=== PATIENT | female | born 1980 | race Two or more races ===

== ENCOUNTER 2020-11-05 10:28 | Outpatient (REF) | payer OTHER, MEDICAID, SELFPAY ==
--- NOTE | 2020-11-05 | PFT_ITS ---
FLOWS: FEV1 81% of predicted at 2.11 L. FVC 72% of predicted at 2.29 L. FEV1 to FVC ratio of 0.92. No bronchodilator response. LUNG VOLUMES: Total lung capacity 65% of predicted at 2.89 L. Residual volume 39% of predicted at 0.56 L. Slow vital capacity 76% of predicted at 2.33 L. Expiratory reserve volume 61% of predicted at 0.62 L. Diffusion capacity is normal. IMPRESSION: [id number] restrictive ventilatory defect. No bronchodilator response. Decreased expiratory reserve volume suggests extrathoracic restriction likely secondary to abdominal obesity. MD MARCIN López/MODL / [id number]
== END 2020-11-05 10:29 | disposition home or self-care (01) ==
LOC: HO.RESP 10:28
PROVIDERS: Visit Provider Internal Medicine
DX: R06.02 Shortness of breath (principal)
CPT/HCPCS: 94060; 94727; 94729

== ENCOUNTER 2020-11-16 10:20 | Outpatient (REF) | payer OTHER, MEDICAID, SELFPAY ==
[2020-11-17 08:45] LABS: BV Int Neg Control Negative (Negative); BV Int Pos Control Positive (Positive)
[2020-11-17 18:57] LABS: C. trachomatis RNA TMA NOT DETECTED (NOT DETECTED); N. gonorrhoeae RNA TMA NOT DETECTED (NOT DETECTED)
== END 2020-11-16 10:21 | disposition home or self-care (01) ==
LOC: HO.LAB 10:20
PROVIDERS: PCP Internal Medicine; Visit Provider Advanced Practice Midwife
DX: R10.2 Pelvic and perineal pain (principal)
CPT/HCPCS: 36415; 87480; 87491; 87510; 87591; 87660

== ENCOUNTER 2020-11-30 11:06 | Outpatient (REF) | payer OTHER, MEDICAID, SELFPAY ==
--- NOTE | ~2020-11-30 | US_ITS ---
EXAMINATION: US PELVIS COMPLETE US PELVIS ENDOVAGINAL CLINICAL INFORMATION: Pelvic and perineal pain COMPARISON: None. TECHNIQUE: Transabdominal and transvaginal images of the pelvis were obtained. FINDINGS: UTERUS: Anteverted, anteflexed. Normal size and contour, measuring 8.7 x 6.0 x 7.6 cm (cervix to fundus x AP x transverse). Uniform, homogeneous endometrium measures 0.9 cm in width. RIGHT OVARY: Normal size and echogenicity measuring 1.9 x 1.7 x 2.2 cm. 4 cc volume. LEFT OVARY: Left ovary not seen. No adnexal mass. FREE FLUID: No pelvic free fluid. US/US pelvic complete IMPRESSION: Normal pelvic ultrasound.
--- NOTE | ~2020-11-30 | US_ITS ---
EXAMINATION: US PELVIS COMPLETE US PELVIS ENDOVAGINAL CLINICAL INFORMATION: Pelvic and perineal pain COMPARISON: None. TECHNIQUE: Transabdominal and transvaginal images of the pelvis were obtained. FINDINGS: UTERUS: Anteverted, anteflexed. Normal size and contour, measuring 8.7 x 6.0 x 7.6 cm (cervix to fundus x AP x transverse). Uniform, homogeneous endometrium measures 0.9 cm in width. RIGHT OVARY: Normal size and echogenicity measuring 1.9 x 1.7 x 2.2 cm. 4 cc volume. LEFT OVARY: Left ovary not seen. No adnexal mass. FREE FLUID: No pelvic free fluid. US/US transvaginal IMPRESSION: Normal pelvic ultrasound.
== END 2020-11-30 11:07 | disposition home or self-care (01) ==
LOC: HO.US 11:06
PROVIDERS: PCP Internal Medicine; Visit Provider Advanced Practice Midwife
DX: R10.2 Pelvic and perineal pain (principal)
CPT/HCPCS: 76830; 76856

== ENCOUNTER 2020-12-14 08:29 | Outpatient (REF) | payer OTHER, MEDICAID, SELFPAY ==
[2020-12-16 18:11] LABS: HPV mRNA E6/E7 rflx Not Detected (Not Detected)
== END 2020-12-14 08:30 | disposition home or self-care (01) ==
LOC: HO.LAB 08:29
PROVIDERS: PCP Internal Medicine; Visit Provider Advanced Practice Midwife
DX: Z01.419 Encounter for gynecological examination (general) (routine) without abnormal findings (principal); Z11.51 Encounter for screening for human papillomavirus (HPV); R10.2 Pelvic and perineal pain; Z71.2 Person consulting for explanation of examination or test findings
CPT/HCPCS: 36415; 87624; 88142

== ENCOUNTER 2020-12-17 13:34 | Outpatient (REF) | payer OTHER, MEDICAID, SELFPAY ==
--- NOTE | ~2020-12-17 | MM_ITS ---
EXAMINATION: MM DIAGNOSTIC DIGITAL BREAST TOMOSYNTHESIS, BILATERAL TARGETED LEFT BREAST ULTRASOUND CLINICAL INFORMATION: Left breast pain. Status post bilateral breast reduction surgery 2016. The lifetime risk of breast cancer based on the Tyrer-Cuzick Model is 13.0%. COMPARISON: Mammography: None. TECHNIQUE: Digital breast tomosynthesis is performed in both the craniocaudal and mediolateral oblique views along with computer-aided detection (CAD). Synthesized 2D images are generated from the tomosynthesis. Additional spot magnification views of the right breast in 90 degree mediolateral and craniocaudal projections performed. Targeted left breast ultrasound. FINDINGS: There are scattered areas of fibroglandular density (ACR BI-RADS breast composition Category b). Within the central aspects of both breasts there is dystrophic calcifications from previous surgery. There are also areas of architectural distortion related to surgery bilaterally. Along the region of scar about the superior lateral aspect of the right breast there are a few calcifications without linear or branching forms and for which six-month follow-up magnification views are recommended. Targeted ultrasound evaluation in region of patient's pain at the 1 to 4 o'clock position did not demonstrate any abnormal cystic or solid mass. No region of abnormal distal sound shadowing appreciated. Results are provided to the patient at time of visit by the technologist. MM/MM tomosynthesis diagnostic BI IMPRESSION: Bilateral postsurgical change. Grouping of probably postsurgical dystrophic calcifications upper outer aspect of the right breast approximately 4 cm from the nipple for which six-month follow-up magnification views are recommended. No suspicious abnormality of the left breast in region of pain. ASSESSMENT: BI-RADS 3: Probably Benign. RECOMMENDATION: Diagnostic mammography in 6 months. This patient's information was entered into a reminder system with a target due date for their next mammogram.
--- NOTE | ~2020-12-17 | US_ITS ---
EXAMINATION: US DIAGNOSTIC ULTRASOUND BREAST, LEFT CLINICAL INFORMATION: Mastodynia. COMPARISON: Mammography of same day. TECHNIQUE: Ultrasound of the breast is performed with real-time low scale imaging and color Doppler. FINDINGS: There is no focal suspicious finding. There is no solid mass, architectural abnormality, duct ectasia, or edema in the soft tissue planes. Results are discussed with the patient at time of visit. US/US breast LT limited IMPRESSION: No mammographic abnormality of the left breast in region of pain. Due to mammography findings of calcifications in the right breast 6 month follow-up diagnostic right breast mammogram consisting of magnification views is recommended. ASSESSMENT: BI-RADS 3: Probably Benign RECOMMENDATION: Diagnostic mammography in 6 months. This patient's information was entered into a reminder system with a target due date for their next mammogram.
== END 2020-12-17 13:35 | disposition home or self-care (01) ==
LOC: HO.MAMMO 13:34
PROVIDERS: PCP Internal Medicine; Visit Provider Internal Medicine
DX: N64.4 Mastodynia (principal)
CPT/HCPCS: 76642; 77062; 77066

== ENCOUNTER 2021-02-13 21:38 | Observation (INO) | payer OTHER, MEDICAID, SELFPAY ==
--- NOTE | ~2021-02-13 | MR_ITS ---
EXAMINATION: BRAIN MRI WITHOUT CONTRAST CLINICAL INFORMATION: Transient ischemic attack COMPARISON: CT scan of the head 02/13/2021. TECHNIQUE: Multiplanar MR imaging of the brain was performed without contrast. FINDINGS: There are a few scattered nonspecific foci of T2 FLAIR signal hyperintensity within the supratentorial white matter. No acute territorial infarct. No pathological magnetic susceptibility artifact. Intracranial vascular flow voids are maintained. There is no intracranial mass effect or midline shift. No abnormal extra-axial collection. Lateral and third ventricles are normal. No hydrocephalus. Midline structures including the cervicomedullary junction are normal. No acute bone marrow signal changes. There is no mastoid or middle ear effusion. Mild to moderate paranasal sinus disease primarily affecting the ethmoid air cells. Globes and orbits are symmetric. MR/MR head/brain wo con IMPRESSION: Unremarkable examination in that there is no evidence of acute territorial infarct or hemorrhage.
--- NOTE | ~2021-02-13 | CT_ITS ---
EXAMINATION: CT HEAD WITHOUT CONTRAST CLINICAL INFORMATION: Right-sided facial numbness and asymmetry. COMPARISON: None TECHNIQUE: Contiguous axial imaging was performed from the skull base to vertex without intravenous administration of contrast. This CT examination was performed using dose optimization techniques as appropriate, variously including the following: *Automated exposure control *Adjustment of mA and/or kV according to patient size (this includes techniques or standardized protocols for targeted exams where dose is matched to indication/reason for exam; i.e. extremities or head) *Use of iterative reconstruction technique DLP: 743 mGy-cm FINDINGS: There is no evidence of acute intracranial hemorrhage or territorial infarction. No abnormal mass effect or midline shift is seen. Reinoso to white matter differentiation is well preserved. No extra-axial fluid collections are identified. The ventricles are normal in size. There is no abnormal attenuation within the brain parenchyma. The osseous structures and soft tissues are normal. The mastoid air cells and visualized portions of the paranasal sinuses are well aerated. CT/CT head/brain wo con IMPRESSION: No acute intracranial pathology.
[2021-02-13 21:48] VITALS: BP 147/90; PULSE 69; RESP 18; TEMP 36.7; O2SAT 99; BMI 33.7
[2021-02-13 22:00] VITALS: RESP 18
--- NOTE | 2021-02-13 22:17 | ECG_ITS ---
Test Reason : FACIAL NUMBNESS Blood Pressure : / mmHG Vent. Rate : 072 BPM Atrial Rate : 072 BPM P-R Int : 132 ms QRS Dur : 080 ms QT Int : 374 ms P-R-T Axes : 049 058 038 degrees QTc Int : 409 ms Artifact in tracing Normal sinus rhythm Normal ECG No previous ECGs available Referred By: Ev Lobato Electronically Signed By:HUNTER MONK
--- NOTE | 2021-02-13 22:22 | ED.GENADULT ---
HPI - General Adult General Chief complaint: General Medical Stated complaint: Facial numbess Time Seen by Provider: 02/13/21 22:04 Source: patient Mode of arrival: ambulatory History of Present Illness HPI narrative: 40-year-old female with a past medical history of hypothyroidism presenting to the ED complaining of right-sided facial numbness and reported asymmetry since 6:00 p.m. Admits to mild associated headache and acute on chronic lower extremity cramping. Denies vision changes, lightheadedness/dizziness, nausea/vomiting, CP/SOB, abdominal pain, weakness, fever, chills, head trauma. Does not take anticoagulation. Onset (ago): hour(s) Related Data Home Medications Medication Instructions Recorded Confirmed chlorhexidine gluconate 0.12 % 13 ml PO BID 11/16/20 02/13/21 mouthwash diclofenac potassium 50 mg tablet 50 mg PO BID 11/16/20 02/13/21 fluticasone propionate 50 1 - 2 spray INTRANASAL DAILY PRN 11/16/20 02/13/21 mcg/actuation nasal spray,suspension levothyroxine 50 mcg capsule 50 mcg PO DAILY 11/16/20 02/13/21 montelukast 10 mg tablet 10 mg PO BEDTIME 11/16/20 02/13/21 Allergies Allergy/AdvReac Type Severity Reaction Status Date / Time No Known Allergies Allergy Verified 12/14/20 09:21 Review of Systems Review of Systems: Constitutional: No Fever, No Chills, No Night Sweats, No Fatigue, No Malaise ENT/Mouth: No Ear Pain, No Nasal Congestion, No Hoarseness, No sore throat, No Rhinorrhea Eyes: No Eye Pain, No Swelling, No Redness, No Foreign Body, No Discharge, No Vision Changes Cardiovascular: No Chest Pain, No SOB, No Orthopnea, No Edema, No Palpitations Respiratory: No Cough, No Sputum, No Wheezing, No Dyspnea Gastrointestinal: No Nausea, No Vomiting, No Diarrhea, No Constipation, No Abdominal pain Genitourinary: No Dysuria, No Urinary Frequency, No Hematuria Musculoskeletal: No joint pain, No Myalgias, No Joint Swelling Skin: No Skin Lesions, No rash Neuro: No Weakness, + Numbness, No Paresthesias, No Dizziness, + Headache Yes all other systems are reviewed and are negative Neurologic: Denies Abnormal speech present [facility] Past Medical History Attestation statement: The following information was validated with the patient. Medical History (Updated 02/14/21 @ 00:03 by SAGAR Mendoza) Hypothyroidism No known health problems Ovarian cyst Surgical History H/O abdominoplasty History of bilateral breast reduction surgery Family History Family History Father Hypertension Mother CVD (cardiovascular disease) Sister Asthma Thyroid disease Maternal Uncle Diabetes Social History Social History Alcohol intake: never Smoking Status: Never smoker Smoked in Last 30 Days: No Use of substances other than those prescribed or required for medical reasons: No Advance Directives: No Advance Directives Information Provided: No Patient : No Physical Exam Vital Signs: Vital Signs: Last Vital Signs Temp 98.0 F 02/13/21 21:48 Pulse 69 02/13/21 21:48 Resp 18 02/13/21 22:00 BP 147/90 H 02/13/21 21:48 Pulse Ox 99 02/13/21 21:48 Body Mass Index 33.7 Const: General: cooperative and healthy appearing Orientation/consciousness: patient oriented x3 Limitations: no limitations HENMT: Head: Yes normal to inspection Ears: hearing grossly normal bilaterally General nose exam: Normal external nose present Face and sinus: Yes normal facial exam Eyes: General: appearance normal, both eyes and all related structures EOM: EOMs intact bilaterally Neck: Neck: Yes normal visual inspection and Yes no meningeal signs Resp: Effort & Inspection: normal respiratory effort Auscultation: clear to auscultation bilaterally, no rales, no rhonchi and no wheezes Cardio: Rate: regular rate Heart sounds: S1 normal heart sound present and S2 normal heart sound present GI: Inspection: Yes normal to inspection Palpation (GI): Soft to palpation, nontender, no guarding and not rigid Skin: Rashes: no rashes Wounds: no wounds Neuro: Other: +reported decreased sensation to right face General: patient oriented x3, gait normal, tone normal, moves all extremities, no meningeal signs, no focal motor deficits and CN's II-XI intact bilaterally Cranial nerves: Yes CN's II-XII intact bilaterally, Yes Normal facial strength present and Yes Midline tongue present Cognition (Neuro): normal cognition Speech: No Abnormal speech present Gait exam (Neuro): Normal gait present Motor exam (neuro): 5/5 motor strength present throughout, Pronator motor function not present, no tremor noted and no asterixis Coordination: [id number] test normal and Romberg test negative Extrem: General: Yes normal to inspection, Yes no pedal edema and Yes no calf tenderness NIH Stroke Scale Internal: Initial- Upon Arrival Level of Consciousness: Alert Level of Consciousness Questions: Answers both questions correctly Level of Consciousness Commands: Performs both tasks correctly Best Gaze: Normal Visual: No visual loss Facial Palsy: Normal Motor Arm (Right): No drift Motor Arm (Left): No drift Motor Leg (Right): No drift Motor Leg (Left): No drift Limb Ataxia: Absent Sensory: Normal Best Language: No aphasia Dysarthia: Normal Extinction and Inattention: No abnormality Score: 0 Course Course Course Narrative: -labs unremarkable, COVID-[address] head/brain wo con IMPRESSION: No acute intracranial pathology. >> Plan to admit for further management Medical Decision Making [facility] Narrative Medical decision making narrative: 40-year-old female with a past medical history of hypothyroidism presenting to the ED complaining of right-sided facial numbness and reported asymmetry since 6:00 p.m. Admits to mild associated headache and acute on chronic lower extremity cramping. On exam VSS, NAD, well appearing, no focal neuro deficits appreciated, NIHSS=0, patient is out of the window for tPA, stroke scale non-disabling patient not candidate for tPA. Concern for TIA/CVA vs facial paralysis. Exam not c/w Moore's Palsy. Plan: EKG, labs, head CT, [place], anticipated admission Lab Data Result diagrams: 02/13/21 22:30 02/13/21 22:30 Labs: Lab Results 02/13/21 02/13/21 02/13/21 Range/Units 22:30 22:30 22:30 WBC 11.0 H (4.8-10.8) X10*3/uL RBC 4.29 (4.20-5.50) X10*6/uL Hgb 12.3 (12.0-16.0) g/dl Hct 38.3 (37-47) % MCV 89.3 (80-98) fL MCH 28.7 (27.0-33.0) pg MCHC 32.1 (31.0-35.0) g/dl RDW 12.1 (11.0-16.0) % Plt Count 253 (160-400) X10*3/uL MPV 10.7 (9.4-12.3) fL Immature Gran % (Auto) 0.2 (0.0-0.4) % Neut % (Auto) 51.9 (45-73) % Lymph % (Auto) 40.4 H (20-40) % Lee % (Auto) 5.9 (2-11) % Eos % (Auto) 1.1 (0-4) % Baso % (Auto) 0.5 (0-2) % Lymph # (Auto) 4.5 (1.2-4.9) X10*3/uL Lee # (Auto) 0.7 (0.1-1.2) X10*3/uL Eos # (Auto) 0.1 (0.0-0.4) X10*3/uL Baso # (Auto) 0.1 (0.0-0.2) X10*3/uL Abs Immat Gran (auto) 0.02 (0.00-0.03) X10*3/uL Absolute Neuts (auto) 5.7 (2.0-8.3) X10*3/uL Absolute Nucleated RBC 0.000 (0.0-0.012) X10*3/uL Nucleated RBC % (auto) 0.0 (0.0-0.2) /100WBC PT (10.8-13.0) SEC INR (0.9-1.1) APTT (24.1-38.0) SEC Sodium 138 (135-145) mmol/L Potassium 4.0 (3.3-5.1) mmol/L Chloride 104 (96-108) mmol/L Carbon Dioxide 23 (22-29) mmol/L Anion Gap 15 (12-20) BUN 12 (9-16) mg/dL Creatinine 0.82 (0.5-1.4) mg/dL Estim Creat Clear Calc 83.6 Estimated GFR > 60 Random Glucose 84 (60-115) mg/dL Calcium 10.1 (8.4-10.2) mg/dL Magnesium 2.1 (1.6-2.6) mg/dL Total Bilirubin 0.6 (0.0-1.0) mg/dL Direct Bilirubin 0.2 (0.0-0.5) mg/dL AST 20 (5-31) U/L ALT 20 (0-31) U/L Alkaline Phosphatase 52 (39-117) U/L Troponin I High Sens < 3.5 (<3.5-17.0) ng/L Total Protein 7.9 (6.5-8.0) g/dL Albumin 4.8 (3.5-5.0) g/dL COVID-19 (DAVID) (Negative) COVID-19 Clin Com 02/13/21 02/13/21 Range/Units 22:30 22:37 WBC (4.8-10.8) X10*3/uL RBC (4.20-5.50) X10*6/uL Hgb (12.0-16.0) g/dl Hct (37-47) % MCV (80-98) fL MCH (27.0-33.0) pg MCHC (31.0-35.0) g/dl RDW (11.0-16.0) % Plt Count (160-400) X10*3/uL MPV (9.4-12.3) fL Immature Gran % (Auto) (0.0-0.4) % Neut % (Auto) (45-73) % Lymph % (Auto) (20-40) % Lee % (Auto) (2-11) % Eos % (Auto) (0-4) % Baso % (Auto) (0-2) % Lymph # (Auto) (1.2-4.9) X10*3/uL Lee # (Auto) (0.1-1.2) X10*3/uL Eos # (Auto) (0.0-0.4) X10*3/uL Baso # (Auto) (0.0-0.2) X10*3/uL Abs Immat Gran (auto) (0.00-0.03) X10*3/uL Absolute Neuts (auto) (2.0-8.3) X10*3/uL Absolute Nucleated RBC (0.0-0.012) X10*3/uL Nucleated RBC % (auto) (0.0-0.2) /100WBC PT 12.2 (10.8-13.0) SEC INR 1.0 (0.9-1.1) APTT 35.7 (24.1-38.0) SEC Sodium (135-145) mmol/L Potassium (3.3-5.1) mmol/L Chloride (96-108) mmol/L Carbon Dioxide (22-29) mmol/L Anion Gap (12-20) BUN (9-16) mg/dL Creatinine (0.5-1.4) mg/dL Estim Creat Clear Calc Estimated GFR Random Glucose (60-115) mg/dL Calcium (8.4-10.2) mg/dL Magnesium (1.6-2.6) mg/dL Total Bilirubin (0.0-1.0) mg/dL Direct Bilirubin (0.0-0.5) mg/dL AST (5-31) U/L ALT (0-31) U/L Alkaline Phosphatase (39-117) U/L Troponin I High Sens (<3.5-17.0) ng/L Total Protein (6.5-8.0) g/dL Albumin (3.5-5.0) g/dL COVID-19 (DAVID) Negative (Negative) COVID-19 Clin Com See Note ECG Data Attestation: I personally reviewed and interpreted this ECG as follows: Interpretation: EKG normal sinus rhythm with rate of 72. QTC 409. No STEMI/nonischemic. Artifact present Discharge Plan Discharge Clinical Impression: Right facial numbness Patient Disposition: Admitted As Inpatient Prescriptions: No Action montelukast 10 mg tablet 10 mg PO BEDTIME RF: 0 fluticasone propionate 50 mcg/actuation spray,suspension 1 - 2 spray intranasal DAILY PRN (Reason: Runny Nose) RF: 0 diclofenac potassium 50 mg tablet 50 mg PO BID RF: 0 chlorhexidine gluconate 0.12 % mouthwash 13 ml PO BID RF: 0 levothyroxine 50 mcg capsule 50 mcg PO DAILY RF: 0
[2021-02-13 22:36] LABS: MANUAL DIFF FLAG NO
[2021-02-13 22:40] LABS: Basophils Absolute Auto 0.1 X10*3/uL (0.0-0.2); Basophils Percent Auto 0.5 % (0-2); Eosinophils Absolute Auto 0.1 X10*3/uL (0.0-0.4); Eosinophils Percent Auto 1.1 % (0-4); Hematocrit 38.3 % (37-47); Hemoglobin 12.3 g/dl (12.0-16.0); Imm Gran Abs Auto 0.02 X10*3/uL (0.00-0.03); Imm Gran Pct Auto 0.2 % (0.0-0.4); Lymphocytes Absolute Auto 4.5 X10*3/uL (1.2-4.9); Lymphocytes Percent Auto 40.4 % (20-40); Mean Corpuscular HGB Conc 32.1 g/dl (31.0-35.0); Mean Corpuscular Hemoglobin 28.7 pg (27.0-33.0); Mean Corpuscular Volume 89.3 fL (80-98); Mean Platelet Volume 10.7 fL (9.4-12.3); Monocytes Absolute Auto 0.7 X10*3/uL (0.1-1.2); Monocytes Percent Auto 5.9 % (2-11); Neutrophils Absolute Auto 5.7 X10*3/uL (2.0-8.3); Neutrophils Percent Auto 51.9 % (45-73); Platelet Count 253 X10*3/uL (160-400); Red Blood Count 4.29 X10*6/uL (4.20-5.50); Red Cell Distribution Width 12.1 % (11.0-16.0)
[2021-02-13 22:45] LABS: Prothrombin Time 12.2 SEC (10.8-13.0)
[2021-02-13 22:48] LABS: Partial Thromboplastin Time 35.7 SEC (24.1-38.0)
[2021-02-13 23:11] LABS: COVID-19 Test Negative (Negative); IDNOW Serial# 9DD0AD1C
[2021-02-13 23:15] LABS: Alanine Aminotransferase 20 U/L (0-31); Albumin Level 4.8 g/dL (3.5-5.0); Alkaline Phosphatase 52 U/L (39-117); Anion Gap 15 (12-20); Aspartate Amino Transferase 20 U/L (5-31); Bilirubin Direct 0.2 mg/dL (0.0-0.5); Bilirubin Total 0.6 mg/dL (0.0-1.0); Blood Urea Nitrogen 12 mg/dL (9-16); Calcium 10.1 mg/dL (8.4-10.2); Carbon Dioxide 23 mmol/L (22-29); Chloride 104 mmol/L (96-108); Creatinine Clr Calc Pharmacy 83.6; Estimated Glomerular Filt Rate > 60; Glucose Random 84 mg/dL (60-115); Magnesium 2.1 mg/dL (1.6-2.6); Sodium 138 mmol/L (135-145); Total Protein 7.9 g/dL (6.5-8.0)
[2021-02-13 23:22] LABS: Troponin-I High Sensitivity < 3.5 ng/L (<3.5-17.0)
[2021-02-14 00:27] LABS: TSH reflex Free T4 3.88 uIU/mL (0.32-4.0)
--- NOTE | 2021-02-14 00:53 | PM.IMHP ---
History of Present Illness Date of Service: 02/14/21 Chief Complaint: Numbness, tingling, as well as drooping of the face This is a 40-year-old female with history of hypothyroidism, presents to the hospital with complaints of sudden-onset numbness, tingling, as well as drooping of her right face. Patient reports that she had no slurred speech, no numbness tingling or weakness in her upper or lower extremities. She denies any previous similar episode, on my interview continues to feel it although improved, denies any previous similar episode. She is also complaining of blurry vision of the right eye that also started the same time. Has no headache, no dizziness, no chest pain, nausea or vomiting, no diarrhea constipation, no urinary symptoms, and no lower extremity edema. On arrival to the ED hemodynamically stable with no significant abnormal vitals Labs are significant for WBC count of 11.0 otherwise unremarkable. Lyme screen pending, COVID-19 negative, Head CT shows no intracranial pathology Review of Systems Review of Systems: Yes all other systems are reviewed and are negative [facility] Medical History Hypothyroidism No known health problems Ovarian cyst Family History Father Hypertension Mother CVD (cardiovascular disease) Sister Asthma Thyroid disease Maternal Uncle Diabetes Surgical History H/O abdominoplasty History of bilateral breast reduction surgery Social History Alcohol intake: never Smoking Status: Never smoker Smoked in Last 30 Days: No Use of substances other than those prescribed or required for medical reasons: No Advance Directives: No Advance Directives Information Provided: No Patient : No Meds Allergies Allergy/AdvReac Type Severity Reaction Status Date / Time No Known Allergies Allergy Verified 12/14/20 09:21 Active Medications: Current Medications Generic Name Dose Route Start Last Admin Trade Name Freq PRN Reason Stop Dose Admin Pharmacy Consult 1 each 02/13/21 22:26 Consult Rx Perform Med Rec MISCELLANE ONCE PRN Consult order Home Medications Medication Instructions Recorded Confirmed Last Taken Type chlorhexidine gluconate 0.12 % 13 ml PO BID 11/16/20 02/13/21 Unknown History mouthwash diclofenac potassium 50 mg tablet 50 mg PO BID 11/16/20 02/13/21 Unknown History fluticasone propionate 50 1 - 2 spray INTRANASAL DAILY PRN 11/16/20 02/13/21 Unknown History mcg/actuation nasal spray,suspension levothyroxine 50 mcg capsule 50 mcg PO DAILY 11/16/20 02/13/21 Unknown History montelukast 10 mg tablet 10 mg PO BEDTIME 11/16/20 02/13/21 Unknown History Physical Exam Vital Signs and Narrative: Vital Signs: Last Vital Signs Temp 98.0 F 02/13/21 21:48 Pulse 69 02/13/21 21:48 Resp 18 02/13/21 22:00 BP 147/90 H 02/13/21 21:48 Pulse Ox 99 02/13/21 21:48 Body Mass Index 33.7 Const: General: cooperative and no acute distress Orientation/consciousness: patient oriented x3 Eyes: General: appearance normal, both eyes and all related structures Resp: Effort & Inspection: normal respiratory effort and able to speak in complete sentences Cardio: Rate: regular rate Rhythm: regular rhythm GI: Palpation (GI): Soft to palpation Auscultation: normal bowel sounds Skin: General skin exam: no rashes or lesions noted Neuro: Other: Has decreased sensation on the right face, no tongue deviation, no slurred speech, no droopiness of either side of the face, strength 5/5 in upper and lower extremities No evidence of him an apnea General: patient oriented x3 Cognition (Neuro): normal cognition Extrem: General: Yes normal to inspection and Yes no pedal edema Results Labs CBC and Chem 7: 02/13/21 22:30 02/13/21 22:30 Labs: Laboratory Results - last 24 hr 02/13/21 02/13/21 02/13/21 22:30 22:30 22:30 MCV 89.3 MCH 28.7 MCHC 32.1 RDW 12.1 Plt Count 253 MPV 10.7 Immature Gran % (Auto) 0.2 Neut % (Auto) 51.9 Lymph % (Auto) 40.4 H [place] % (Auto) 5.9 Eos % (Auto) 1.1 Baso % (Auto) 0.5 Lymph # (Auto) 4.5 [place] # (Auto) 0.7 Eos # (Auto) 0.1 Baso # (Auto) 0.1 Abs Immat Gran (auto) 0.02 Absolute Neuts (auto) 5.7 Absolute Nucleated RBC 0.000 Nucleated RBC % (auto) 0.0 PT INR APTT Anion Gap 15 Estim Creat Clear Calc 83.6 Estimated GFR > 60 Random Glucose 84 Calcium 10.1 Magnesium 2.1 Total Bilirubin 0.6 Direct Bilirubin 0.2 AST 20 ALT 20 Alkaline Phosphatase 52 Troponin I High Sens < 3.5 Total Protein 7.9 Albumin 4.8 TSH 3.88 COVID-19 (DAVID) COVID-19 Clin Com 02/13/21 02/13/21 22:30 22:37 MCV MCH MCHC RDW Plt Count MPV Immature Gran % (Auto) Neut % (Auto) Lymph % (Auto) [place] % (Auto) Eos % (Auto) Baso % (Auto) Lymph # (Auto) [place] # (Auto) Eos # (Auto) Baso # (Auto) Abs Immat Gran (auto) Absolute Neuts (auto) Absolute Nucleated RBC Nucleated RBC % (auto) PT 12.2 INR 1.0 APTT 35.7 Anion Gap Estim Creat Clear Calc Estimated GFR Random Glucose Calcium Magnesium Total Bilirubin Direct Bilirubin AST ALT Alkaline Phosphatase Troponin I High Sens Total Protein Albumin TSH COVID-19 (DAVID) Negative COVID-19 Clin Com See Note Imaging Radiologist's Impressions: Impressions Head CT 02/13/21 22:20 IMPRESSION: No acute intracranial pathology. Assessment and Plan (1) Right facial numbness: Status: Acute 40-year-old female with history of hypothyroidism presents to the hospital with complaints of facial numbness and tingling #Acute right facial numbness - TIA versus other etiologies - calcium normal, potassium normal, head CT negative, normal TSH - has no other neurological deficit - has no risk factors - will obtain MRI of the brain to rule out acute stroke versus TIA # hypothyroidism - normal TSH - continue levothyroxine DVT prophylaxis: Early ambulation
[2021-02-14 01:02] VITALS: BP 125/75; PULSE 76; RESP 14; TEMP 36.8; O2SAT 100
[2021-02-14 01:45] VITALS: BP 135/70; PULSE 73; RESP 14; TEMP 36.1; O2SAT 99; BMI 33.8
[2021-02-14 04:00] VITALS: BP 116/67; PULSE 72; RESP 14; TEMP 36.4; O2SAT 100
[2021-02-14] MEDS: Levothyroxine Sodium 50 MCG TABLET PO (06:12)
[2021-02-14 08:00] VITALS: BP 124/79; PULSE 72; RESP 20; TEMP 36.4; O2SAT 100
[2021-02-14] MEDS: Chlorhexidine Gluc Oral Rinse 15 ML MOUTHWASH 13 ML BUCCAL (09:46)
[2021-02-14] MEDS: 0.9 % Sodium Chloride Flush 3 ML SYRINGE IVFLUSH ×2 (09:47→16:22)
--- NOTE | 2021-02-14 10:05 | PM.DS ---
DS: Providers Provider Date of Service: 02/17/21 Date of admission: 02/14/21 00:52 Primary care physician: Unknown Physician Consults: 02/14/21 08:21 Consult to Neurology Routine Consulting Provider: [facility] Reason for consultation: Facial droop DS: Diagnosis Discharge Diagnosis (1) Right facial numbness: Status: Acute Problem details: 40 years old woman with new onset of right-sided facial numbness. Examination revealed mild right-sided facial flatness. This feeling lasted for couple of hours and with that she had attention type feeling in her head. She denied having previous headaches. This type of problem can occur from peripheral pathology or central. There is no acute or chronic central pathology to explain on her MRI. Mild Moore's palsy could be a possibility. Migraine would be a possibility but she denied any history of headaches in the past. My recommendation is to give her a course of prednisone with valacyclovir and discharge her with outpatient follow-up. DS: Medications Discharge Medications Home Medications: Home Medications Medication Instructions Recorded Confirmed chlorhexidine gluconate 0.12 % 13 ml PO BID 11/16/20 02/13/21 mouthwash diclofenac potassium 50 mg tablet 50 mg PO BID 11/16/20 02/13/21 fluticasone propionate 50 1 - 2 spray INTRANASAL DAILY PRN 11/16/20 02/13/21 mcg/actuation nasal spray,suspension levothyroxine 50 mcg capsule 50 mcg PO DAILY 11/16/20 02/13/21 montelukast 10 mg tablet 10 mg PO BEDTIME 11/16/20 02/13/21 DS: Summary Hospital Course Hospital Course: Patient presented with numbness, tingling in arm and reported facial droop (not appreciated on my exam) and had normal head CT-- Time Spent with Patient Time attestation: Total time spent providing and/or coordinating discharge services: Discharge coordination time: Greater than 30 minutes Physical Exam Vital Signs: Vital Signs: Last Vital Signs Temp 97.6 F 02/14/21 08:00 Pulse 72 02/14/21 08:00 Resp 20 02/14/21 08:00 BP 124/79 02/14/21 08:00 Pulse Ox 100 02/14/21 08:00 Body Mass Index 33.8 Constitutional Awake and Alert, No apparent distress Neck Supple, No lymphadenopathy Cardiovascular RRR, No M/R/G, S1 S2, No S3 S4, No pedal edema Respiratory Lungs clear, No respiratory distress Gastrointestinal Non tender, Non-distended Skin No rash Neurological Alert & oriented x3, no focal neuro exam, esssentially normal exam Psychological Appropriate affect DS: Data Data Completed and Pending Labs on day of discharge: Laboratory Results - last 24 hr 02/13/21 02/13/21 02/13/21 22:30 22:30 22:30 WBC 11.0 H RBC 4.29 Hgb 12.3 Hct 38.3 MCV 89.3 MCH 28.7 MCHC 32.1 RDW 12.1 Plt Count 253 MPV 10.7 Immature Gran % (Auto) 0.2 Neut % (Auto) 51.9 Lymph % (Auto) 40.4 H [place] % (Auto) 5.9 Eos % (Auto) 1.1 Baso % (Auto) 0.5 Lymph # (Auto) 4.5 [place] # (Auto) 0.7 Eos # (Auto) 0.1 Baso # (Auto) 0.1 Abs Immat Gran (auto) 0.02 Absolute Neuts (auto) 5.7 Absolute Nucleated RBC 0.000 Nucleated RBC % (auto) 0.0 PT INR APTT Sodium 138 Potassium 4.0 Chloride 104 Carbon Dioxide 23 Anion Gap 15 BUN 12 Creatinine 0.82 Estim Creat Clear Calc 83.6 Estimated GFR > 60 Random Glucose 84 Calcium 10.1 Magnesium 2.1 Total Bilirubin 0.6 Direct Bilirubin 0.2 AST 20 ALT 20 Alkaline Phosphatase 52 Troponin I High Sens < 3.5 Total Protein 7.9 Albumin 4.8 TSH 3.88 COVID-19 (DAVID) COVID-19 Clin [facility] 02/13/21 02/13/21 22:30 22:37 WBC RBC Hgb Hct MCV MCH MCHC RDW Plt Count MPV Immature Gran % (Auto) Neut % (Auto) Lymph % (Auto) [place] % (Auto) Eos % (Auto) Baso % (Auto) Lymph # (Auto) [place] # (Auto) Eos # (Auto) Baso # (Auto) Abs Immat Gran (auto) Absolute Neuts (auto) Absolute Nucleated RBC Nucleated RBC % (auto) PT 12.2 INR 1.0 APTT 35.7 Sodium Potassium Chloride Carbon Dioxide Anion Gap BUN Creatinine Estim Creat Clear Calc Estimated GFR Random Glucose Calcium Magnesium Total Bilirubin Direct Bilirubin AST ALT Alkaline Phosphatase Troponin I High Sens Total Protein Albumin TSH COVID-19 (DAVID) Negative COVID-19 Clin Com See Note Discharge Plan Discharge Anticipated Discharge Date/Time: 02/14/21 10:02 Patient Disposition: Home, Self-Care Discharge Diagnosis: Facial numbness Referrals: Physician,Unknown [Primary Care Provider] - 1 Week Discharge Medications: New prednisone 20 mg tablet 40 mg PO DAILY Qty: 19 RF: 0 valacyclovir 500 mg tablet 500 mg PO BID Qty: 10 RF: 0 Continued montelukast 10 mg tablet 10 mg PO BEDTIME RF: 0 fluticasone propionate 50 mcg/actuation spray,suspension 1 - 2 spray intranasal DAILY PRN (Reason: Runny Nose) RF: 0 diclofenac potassium 50 mg tablet 50 mg PO BID RF: 0 chlorhexidine gluconate 0.12 % mouthwash 13 ml PO BID RF: 0 levothyroxine 50 mcg capsule 50 mcg PO DAILY RF: 0 Discharge Orders: Discharge Order (Routine); Ordered 02/14/21 Ordered By: Wili Joel Diet: advance to usual diet Activity on Discharge: As tolerated Stand Alone Forms: Patient Portal Discharge page Care Plan Goals: prevent rehospitalization Health Concerns: facial numbness, no evidence of stroke Plan of Treatment: Reassured, and to keep active and healthy life style Assessment: See above Discharge Date/Time: 02/14/21 18:30
[2021-02-14 12:00] VITALS: BP 126/58; PULSE 74; RESP 20; TEMP 36.9; O2SAT 98
[2021-02-14 15:42] VITALS: BP 130/70; PULSE 70; RESP 18; TEMP 36.7; O2SAT 99
--- NOTE | 2021-02-14 16:35 | P.CNNE_ITS ---
History of Present Illness Data of Consult Service Date: 02/14/21 Primary Care Provider: Unknown Physician 40 years old woman who came to hospital with right-sided facial numbness. This numbness started suddenly and involved the right side of cheek and jaw. There was no associated numbness and shoulder or arm or hand. There was no headache or dizziness or any other symptom. Though she denied any headache she did say that she had a tension type feeling in her head This feeling lasted for couple of hours and then she was back to baseline. Review of Systems Review of Systems: No recent cold or flu-like illness or trauma or neck pain. [facility] Past Medical History Medical History Hypothyroidism No known health problems Ovarian cyst Family History Family History Father Hypertension Mother CVD (cardiovascular disease) Sister Asthma Thyroid disease Maternal Uncle Diabetes Surgical History Surgical History H/O abdominoplasty History of bilateral breast reduction surgery Social History Social History Alcohol intake: never Smoking Status: Never smoker Smoked in Last 30 Days: No Use of substances other than those prescribed or required for medical reasons: No Advance Directives: No Advance Directives Information Provided: No Patient : No Meds Allergies Allergy/AdvReac Type Severity Reaction Status Date / Time No Known Allergies Allergy Verified 12/14/20 09:21 Active Medications: Current Medications Generic Name Dose Route Start Last Admin Trade Name Heydi PRN Reason Stop Dose Admin Acetaminophen 650 mg 02/14/21 01:02 Acetaminophen 325 Mg Tablet PO Q6H PRN Pain, Mild (Pain Scale 1-3) Chlorhexidine Gluconate 13 ml 02/14/21 09:00 02/14/21 09:46 Chlorhexidine Gluc Oral Rinse 15 Ml Mouthwash BUCCAL 13 ml BID MANOLO Administration Docusate Sodium 100 mg 02/14/21 01:02 Docusate Sodium 100 Mg Capsule PO DAILY PRN Constipation Levothyroxine Sodium 50 mcg 02/14/21 06:30 02/14/21 06:12 Levothyroxine Sodium 50 Mcg Tablet PO 50 mcg DAILY@0630 MANOLO Administration Montelukast Sodium 10 mg 02/14/21 21:00 Montelukast Sodium 10 Mg Tablet PO BEDTIME [facility] Ondansetron HCl 4 mg 02/14/21 01:02 Ondansetron Hcl 4 Mg/2 Ml Vial IVPUSH Q8H PRN Nausea and Vomiting Pharmacy Consult 1 each 02/13/21 22:26 Consult Rx Perform Med Rec MISCELLANE ONCE PRN Consult order Sodium Chloride 3 ml 02/14/21 08:00 02/14/21 16:22 0.9 % Sodium Chloride Flush 3 Ml Syringe IVFLUSH 3 ml QSHIFT [facility] Administration Home Medications Medication Instructions Recorded Confirmed Last Taken Type chlorhexidine gluconate 0.12 % 13 ml PO BID 11/16/20 02/13/21 Unknown History mouthwash diclofenac potassium 50 mg tablet 50 mg PO BID 11/16/20 02/13/21 Unknown History fluticasone propionate 50 1 - 2 spray INTRANASAL DAILY PRN 11/16/20 02/13/21 Unknown History mcg/actuation nasal spray,suspension levothyroxine 50 mcg capsule 50 mcg PO DAILY 11/16/20 02/13/21 Unknown History montelukast 10 mg tablet 10 mg PO BEDTIME 11/16/20 02/13/21 Unknown History Physical Exam Vital Signs: Vital Signs: Last Vital Signs Temp 98.0 F 02/14/21 15:42 Pulse 70 02/14/21 15:42 Resp 18 02/14/21 15:42 BP 130/70 02/14/21 15:42 Pulse Ox 99 02/14/21 15:42 Body Mass Index 33.8 She was alert and awake with normal spontaneity of speech fluency comprehension and affect. Pupils were equal and reactive to light and extraocular muscles were intact. Visual wong are full to threat. There was mild right-sided central type facial weakness. There was no focal arm or leg weakness. There was no pronator drift. Deep tendon reflexes were trace to 1+ with flexor plantars. Results Labs CBC & Chem 7: 02/13/21 22:30 02/13/21 22:30 Labs: Short CBC 02/13/21 Range/Units 22:30 WBC 11.0 H (4.8-10.8) X10*3/uL Hgb 12.3 (12.0-16.0) g/dl Hct 38.3 (37-47) % Plt Count 253 (160-400) X10*3/uL BMP 02/13/21 22:30 Sodium 138 Potassium 4.0 Chloride 104 Carbon Dioxide 23 BUN 12 Creatinine 0.82 Calcium 10.1 Liver Function 02/13/21 Range/Units 22:30 Total Bilirubin 0.6 (0.0-1.0) mg/dL Direct Bilirubin 0.2 (0.0-0.5) mg/dL AST 20 (5-31) U/L ALT 20 (0-31) U/L Alkaline Phosphatase 52 (39-117) U/L Albumin 4.8 (3.5-5.0) g/dL Her noncontrast MRI did not reveal any significant chronic or acute abnormality. Assessment and Plan (1) Right facial numbness: Problem details: 40 years old woman with new onset of right-sided facial numbness. Examination revealed mild right-sided facial flatness. This feeling lasted for couple of hours and with that she had attention type feeling in her head. She denied having previous headaches. This type of problem can occur from peripheral pathology or central. There is no acute or chronic central pathology to explain on her MRI. Mild Moore's palsy could be a possibility. Migraine would be a possibility but she denied any history of headaches in the past. My recommendation is to give her a course of prednisone with valacyclovir and discharge her with outpatient follow-up. Status: Acute
[2021-02-14] MEDS: predniSONE 20 MG TABLET 40 MG PO (17:34)
--- NOTE | 2021-02-15 02:44 | CONS_ITS ---
DATE OF SERVICE: Ms. Boston is a 40-year-old woman who denied any previous history of headaches, came to hospital with sudden onset of right-sided facial numbness. She said that suddenly she could not feel her right side of face. There was no such feeling in arm or shoulder. There was no associated discomfort or any other symptom. This feeling lasted for couple of hours and then she was back to baseline. There was no associated confusion. MD SUBHASH Araujo/JODIE / [id number]
[2021-02-15 17:22] LABS: Lyme Abs Screen <0.90 index
== END 2021-02-14 18:30 | disposition home or self-care (01) ==
LOC: HO.ED 02-14 00:03 → HO.IMC 02-14 01:10
PROVIDERS: Physician Assistant; Admitting Provider Internal Medicine; Emergency Provider Student in an Organized Health Care Education/Training Program; Visit Provider Internal Medicine
DX: R20.2 Paresthesia of skin (principal); E03.9 Hypothyroidism, unspecified; Z20.822 Contact with and (suspected) exposure to COVID-19; Z79.899 Other long term (current) drug therapy
CPT/HCPCS: 36415; 70450; 70551; 80048; 80076; 83735; 84443; 84484; 85025; 85610; 85730; 86617; 86618; 87635; 93005; 96374; 99219; 99285

== ENCOUNTER 2021-06-10 08:44 | Outpatient (REF) | payer OTHER, MEDICAID, SELFPAY ==
--- NOTE | 2021-06-10 08:48 | EMG_ITS ---
Right median and ulnar motor and sensory study were performed. Right radial sensory study was performed and paraspinal muscles were tested with a needle. 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 MD SUBHASH Araujo/JODIE / [id number]
== END 2021-06-10 08:45 | disposition home or self-care (01) ==
LOC: HO.NEURO 08:44
PROVIDERS: Visit Provider General Practice
DX: M25.521 Pain in right elbow (principal); R29.898 Other symptoms and signs involving the musculoskeletal system
CPT/HCPCS: 95886; 95909

== ENCOUNTER 2021-07-01 08:40 | Outpatient (REF) | payer OTHER, MEDICAID, SELFPAY ==
--- NOTE | ~2021-07-01 | MM_ITS ---
EXAMINATION: MM DIAGNOSTIC DIGITAL BREAST TOMOSYNTHESIS, RIGHT CLINICAL INFORMATION: Six-month follow-up right breast calcifications. Status post bilateral breast reduction surgery. The lifetime risk of breast cancer based on the Tyrer-Cuzick Model is 6.9%. COMPARISON: Mammography: December 17, 2020 TECHNIQUE: Digital breast tomosynthesis is performed in both the craniocaudal and mediolateral oblique views along with computer-aided detection (CAD). Synthesized 2D images are generated from the tomosynthesis. Spot magnification views in craniocaudal and 90 degree mediolateral views also performed. FINDINGS: There are scattered areas of fibroglandular density (ACR BI-RADS breast composition Category b). Postsurgical change is noted within the right breast. The grouping of calcifications about the anterior upper outer aspect are stable. Six-month follow-up diagnostic right breast mammogram with screening left breast mammogram recommended. Results are provided to the patient at time of visit by the technologist. MM/MM tomosynthesis diagnostic RT IMPRESSION: There are no significant changes from prior study. Recommend spot magnification views of the right breast at time of bilateral mammogram in 6 months. ASSESSMENT: BI-RADS 3: Probably Benign RECOMMENDATION: Diagnostic mammography in 6 months. This patient's information was entered into a reminder system with a target due date for their next mammogram.
== END 2021-07-01 08:41 | disposition home or self-care (01) ==
LOC: HO.MAMMO 08:40
PROVIDERS: Visit Provider Internal Medicine
DX: R92.1 Mammographic calcification found on diagnostic imaging of breast (principal)
CPT/HCPCS: 77061; 77065

== ENCOUNTER 2021-12-31 12:19 | Outpatient (REF) | payer OTHER, MEDICAID, SELFPAY ==
--- NOTE | ~2021-12-31 | MM_ITS ---
EXAMINATION: MM DIAGNOSTIC DIGITAL BREAST TOMOSYNTHESIS, BILATERAL CLINICAL INFORMATION: Status post bilateral breast reduction surgery. Calcification follow up anterior right breast. COMPARISON: Mammography: 07/01/2021 and 12/17/2020. TECHNIQUE: Digital breast tomosynthesis is performed in both the craniocaudal and mediolateral oblique views along with computer-aided detection (CAD). Synthesized 2D images are generated from the tomosynthesis. FINDINGS: There are scattered areas of fibroglandular density (ACR BI-RADS breast composition Category b). There are again noted to be prominent dystrophic calcifications and postsurgical change bilaterally. There is a stable parenchymal pattern seen bilaterally. Grouping of calcifications about the anterior lateral aspect of the right breast are again seen without significant change. These are likely postsurgical dystrophic calcifications as well as the other obvious dystrophic calcifications. Magnification films of the right breast at next yearly study is recommended to ensure stability out to two years. Results are provided to the patient at time of visit by the technologist. MM/MM tomosynthesis diagnostic BI IMPRESSION: Stable appearance of the breasts. One-year followup study recommended with magnification films of the right breast at that time for anterior grouping of calcifications. ASSESSMENT: BI-RADS 3: Probably Benign. RECOMMENDATION: Diagnostic mammography at time of next annual exam, due in 12 months. This patient's information was entered into a reminder system with a target due date for their next mammogram.
== END 2021-12-31 12:20 | disposition home or self-care (01) ==
LOC: HO.MAMMO 12:19
PROVIDERS: Visit Provider Internal Medicine
DX: R92.1 Mammographic calcification found on diagnostic imaging of breast (principal)
CPT/HCPCS: 77062; 77066

== ENCOUNTER 2022-09-14 13:27 | Outpatient (REF) | payer OTHER, SELFPAY ==
--- NOTE | ~2022-09-14 | US_ITS ---
EXAMINATION: US PELVIS COMPLETE CLINICAL INFORMATION: Pain COMPARISON: Pelvic ultrasound 11/30/2020 TECHNIQUE: Transabdominal and transvaginal imaging was performed. FINDINGS: The uterus is of normal size and echogenicity measuring 10.3 x 5.3 x 5.8 cm. A regular homogeneous endometrium is identified measuring 0.5 cm. Nabothian cysts in the cervix. The right ovary is normal in size and echogenicity. The right measures 2.9 x 2.4 x 1.7 cm for a volume of 6.2 mL. The left ovary was not identified sonographically. No adnexal mass. There is trace simple pelvic free fluid. US/US pelvic and transvaginal IMPRESSION: The left ovary was not identified sonographically. The right ovary is unremarkable. No adnexal mass. Trace simple free fluid in the pelvis within physiologic limits of volume.
== END 2022-09-14 13:28 | disposition home or self-care (01) ==
LOC: HO.US 13:27
PROVIDERS: Visit Provider Advanced Practice Midwife
DX: R10.2 Pelvic and perineal pain (principal)
CPT/HCPCS: 76830; 76856

== ENCOUNTER 2022-09-28 09:03 | Outpatient (REF) | payer OTHER, SELFPAY ==
[2022-09-28 17:27] LABS: CT PCR NOT DETECTED (Not Detect.); NG PCR NOT DETECTED (Not Detect.)
[2022-09-29 12:16] LABS: BV Int Neg Control Negative (Negative); BV Int Pos Control Positive (Positive)
== END 2022-09-28 09:04 | disposition home or self-care (01) ==
LOC: HO.LNP 09:03
PROVIDERS: PCP Internal Medicine; Visit Provider Advanced Practice Midwife
DX: Z11.3 Encounter for screening for infections with a predominantly sexual mode of transmission (principal); R10.2 Pelvic and perineal pain; Z71.2 Person consulting for explanation of examination or test findings
CPT/HCPCS: 87480; 87491; 87510; 87591; 87660

== ENCOUNTER → 2022-10-11 10:00 | Outpatient (BNVA) | payer OTHER, SELFPAY | PROVIDERS: PCP Internal Medicine; Visit Provider Orthopaedic Surgery | DX: Z98.890 Other specified postprocedural states (principal) ==

== ENCOUNTER 2022-11-14 10:55 | Day surgery (SDC) | payer OTHER, SELFPAY ==
[2022-11-14 11:23] VITALS: BP 148/76; PULSE 77; RESP 18; TEMP 36.5; O2SAT 100
[2022-11-14 11:27] VITALS: BMI 33.0
--- NOTE | 2022-11-14 12:13 | MHC.SHP ---
Pre-Procedural Eval Section A Date of Service: 11/14/22 The patient is an INPATIENT: No Changes since office visit: No Cold of Flu in the past 2 weeks, No New Medical Problems, No Changes in Medication and No Patient answered all questions The History & Physical has been completed within 30 days and I have reviewed it.: Yes Section B Chief Complaint: Carpal tunnel syndrome, left upper limb Allergies: Allergies Allergy/AdvReac Type Severity Reaction Status Date / Time Cortisone Allergy Mild Hives Uncoded 11/14/22 11:32 Plan I have reviewed the history and physical and performed a pertinent physical examination on my patient. No changes have occurred unless specified. Time Spent With Patient Time: Total time managing care of this patient today ____ minutes.
--- NOTE | 2022-11-14 12:13 | W.PM.OPN ---
Operative Note Operative Note Date of Service: 11/14/22 Narrative: Preop diagnosis: 1. Left Carpal tunnel syndrome Postop diagnosis: same Procedure: 1. Left Carpal tunnel release Surgeon: Zahida Morales MD Anesthesia: local block using 1% lidocaine with epinephrine Findings: Thickened transverse carpal ligament. EBL: Less than 5 mL Specimens: None Complications: None Disposition: Brought to recovery room in stable condition Plan: Follow-up for 10-14 days for wound check and suture removal Indications: The patient is 42 years old, with left carpal tunnel syndrome that has been unresponsive to nonoperative management. The risks and benefits of operative treatment including but not limited to risk of damage to blood vessels, nerves, tendons, infection, persistent pain, persistent symptoms, or possible need for additional surgery were discussed with the patient and the patient wishes to proceed with surgery. Procedure: Once consent was obtained a local block was performed using a combination of 1% lidocaine with epinephrine. The patient was then brought back to the operating suite and placed on the operative table in supine position. The left upper extremity was prepped and draped in a standard surgical fashion. Once assured that we had a good block, a 2.0 cm longitudinal incision was made centered over the carpal tunnel. The incision was made through the skin to the subcutaneous tissues using a #15 blade. Dissection was made down to the level of the transverse carpal ligament with care being taken to protect the palmar cutaneous nerve. Once the transverse carpal ligament was clearly visualized, a longitudinal incision was made in the transverse carpal ligament 1st using a #15 blade, then using tenotomy scissors under direct visualization. Care was taken to look for and protect the motor branch of the median nerve when seen in this area. Once satisfied with our carpal tunnel release the wound was copiously irrigated with normal saline and hemostasis was obtained with a brief period of local pressure. The skin edges were reapproximated with some 5.0 nylon suture material and a sterile dressing was applied. The patient appears to have tolerated the procedure well and with no complications. All digits were well vascularized at the conclusion of the case.
== END 2022-11-14 13:20 | disposition home or self-care (01) ==
PROVIDERS: Visit Provider Orthopaedic Surgery
PROC: (CPT 64721; principal; 2022-11-14 12:30)
DX: G56.02 Carpal tunnel syndrome, left upper limb (principal); R20.0 Anesthesia of skin; R20.2 Paresthesia of skin; E03.9 Hypothyroidism, unspecified; Z79.899 Other long term (current) drug therapy; Z88.8 Allergy status to other drugs, medicaments and biological substances; Z98.890 Other specified postprocedural states
CPT/HCPCS: 64721; J0171

== ENCOUNTER → 2022-11-29 08:25 | Outpatient (BNVA) | payer OTHER, SELFPAY | PROVIDERS: Visit Provider Orthopaedic Surgery | DX: Z13.89 Encounter for screening for other disorder (principal) ==

== ENCOUNTER 2022-12-29 12:19 | Outpatient (REF) | payer OTHER, SELFPAY ==
--- NOTE | 2022-12-29 08:00 | EMG_ITS ---
Right median and ulnar motor and sensory studies were performed. Right radial sensory study was performed and paraspinal muscles were tested. IMPRESSION: Mild right median neuropathy across carpal tunnel. MD SUBHASH Araujo/JODIE / [id number]
== END 2022-12-29 12:20 | disposition home or self-care (01) ==
LOC: HO.NEURO 12:19
PROVIDERS: PCP Family Medicine; Visit Provider Orthopaedic Surgery
DX: R20.0 Anesthesia of skin (principal); R20.2 Paresthesia of skin
CPT/HCPCS: 95886; 95909

== ENCOUNTER 2022-12-30 08:00 | Outpatient (REF) | payer OTHER, SELFPAY ==
--- NOTE | 2022-12-30 | PFT_ITS ---
INDICATION: Chest discomfort and tightness. SPIROMETRY: FEV1 to FVC 92% with an FEV1 of 2 L, which is 78% predicted and FVC of 2.18 L, which is 70% predicted. No significant response to bronchodilator is noted. Maximum voluntary ventilation 88% predicted. LUNGS VOLUMES: Total lung capacity 71% predicted with an expiratory reserve volume of 30% predicted. DIFFUSION CAPACITY: DLCO is 96% predicted. COMPARISON: None. INTERPRETATION: No obstructive ventilatory defects noted. No significant response to bronchodilators noted. Normal maximum voluntary ventilation. However, the patient does have a restrictive ventilatory defect consistent with mild restrictive lung disease. Therefore underlying parenchymal lung conditions need to be considered. Also diffusion capacity is within normal limits. Clinical correlation is warranted. Jay Jeter MD MR/MODL / [id number]
== END 2022-12-30 08:01 | disposition home or self-care (01) ==
LOC: HO.RESP 08:00
PROVIDERS: PCP Family Medicine; Visit Provider Family Medicine
DX: R07.89 Other chest pain (principal)
CPT/HCPCS: 94060; 94727; 94729

== ENCOUNTER 2023-01-04 12:52 | Outpatient (REF) | payer OTHER, SELFPAY ==
--- NOTE | ~2023-01-04 | MM_ITS ---
EXAMINATION: MM DIAGNOSTIC DIGITAL BREAST TOMOSYNTHESIS, BILATERAL CLINICAL INFORMATION: One-year follow up right breast calcifications. Yearly screening left breast study. Status post bilateral breast reduction surgery. COMPARISON: Mammography: 12/31/2021 and studies dating back to 12/17/2020. TECHNIQUE: Digital breast tomosynthesis is performed in both the craniocaudal and mediolateral oblique views along with computer-aided detection (CAD). Synthesized 2D images are generated from the tomosynthesis. Additional spot magnification films of the right breast in craniocaudal and 90-degree mediolateral views performed. FINDINGS: There are scattered areas of fibroglandular density (ACR BI-RADS breast composition category B). Postsurgical change is again seen bilaterally with dystrophic calcifications. The grouping of calcifications about the more anterior aspect, upper outer aspect of the right breast are stable dating back to study of 12/17/2020. No new abnormal dominant mass or suspicious grouping of microcalcifications is identified. Patient can return to yearly bilateral screening mammography. Results are provided to the patient at time of visit by the technologist. MM/MM tomosynthesis diagnostic BI IMPRESSION: There are no significant changes from prior study. ASSESSMENT: BI-RADS 1: Negative RECOMMENDATION: Routine annual mammography screening due in 12 months. This patient's information was entered into a reminder system with a target due date for their next mammogram.
== END 2023-01-04 12:53 | disposition home or self-care (01) ==
LOC: HO.MAMMO 12:52
PROVIDERS: Visit Provider Dentist Pediatric Dentistry
DX: R92.1 Mammographic calcification found on diagnostic imaging of breast (principal)
CPT/HCPCS: 77062; 77066

== ENCOUNTER 2023-06-07 09:01 | Outpatient (REF) | payer OTHER, SELFPAY ==
[2023-06-07 16:17] LABS: TSH reflex Free T4 2.64 uIU/mL (0.32-4.0)
== END 2023-06-07 09:02 | disposition home or self-care (01) ==
LOC: HO.CHCLDS 09:01
PROVIDERS: Visit Provider Internal Medicine
DX: E03.9 Hypothyroidism, unspecified (principal)
CPT/HCPCS: 36415; 84443

== ENCOUNTER 2023-07-27 08:12 | Outpatient (AMB) | payer OTHER, SELFPAY ==
--- NOTE | 2023-07-27 08:36 | MHC.OFFVIS ---
Intake Vital Signs 07/27/23 08:37 Height 5 ft Weight 180 lb BMI 35.2 BP 120/76 Intake Visit Reasons: FRONT END ARCHITECT annual exam/guatemalan Intake Note: The patient agreed to use of a medical library assistant during this encounter. Scribed for [place] Max by Joellen Ruiz medical library assistant, on 07/26/2023 at 8:54 am EST. Cloth Laminating Supervisor Required: Yes Cloth Laminating Supervisor Language: Alarm Signaler Name: Elinor BARBER Information Interpreted: non-clinical & clinical Safety Deposit Boxes Custodian: Safety Deposit Boxes Custodian Present (Elinor) Allergies Cortisone Allergy (Mild, Uncoded 07/27/23 08:37) Hives Is last menstrual period known: Yes Last menstrual period: 07/20/23 HPI HPI Comments History of Present Illness Details She is a premenopausal woman presenting for annual exam. Patient admits she tries to eat a healthy diet including Calcium and Vitamin D. She stays active with exercise. Currently not sexually active. Reports painful menses. Denies vaginal itching and irritation. Denies family hx of breast, colon and ovarian cancer. Last pap smear 12/14/20. Last mammogram 01/04/23. UTD on colonoscopy. [facility] Medical History History of painful menstruation No known health problems Ovarian cyst Hypothyroidism Surgical History H/O abdominoplasty History of bilateral breast reduction surgery Family History Father Hypertension Mother CVD (cardiovascular disease) Sister Asthma Thyroid disease Maternal Uncle Diabetes Social History Household Members: Spouse Housing: Apartment Alcohol intake: current Alcohol intake frequency: holidays/special occasions only Patient Tobacco Use Status: Never used Tobacco Current occupational status: employed Current occupation: rt hand / hair specialist Sexual orientation: Straight/Heterosexual Gender identity: Female Female Reproductive History Menstrual Age of Menarche: 14 Duration of menses: 6-7 days Date of last menstrual period: 07/20/23 Total pregnancies: 2 Full term: 2 Number of Living Children: 2 Date of last pap smear: 03/08/21 (neg pap and hpv) Date of Mammogram: 01/04/23 (Birad 1) Physical Exam Vital Signs: Last Vital Signs BP 120/76 07/27/23 08:37 BMI result Body Mass Index 35.2 Const General: cooperative, healthy appearing, no acute distress, well developed and alert Orientation/consciousness: patient oriented x3 HEENT Head: Yes normal to inspection Eyes General: appearance normal, both eyes and all related structures Neck Neck: Yes normal visual inspection Thyroid: Thyroid normal Chest Other: bilateral breast reduction scarring Chest palpation & inspection: normal inspection of the chest Breast/axilla inspection: normal inspection of the breasts (no puckering, dimpling, peau de orange, retraction, discharge, masses) Breast/axilla palpation: normal palpation of the breasts Resp Effort & Inspection: normal respiratory effort GI Other: abdominoplasty scarring Inspection: Yes normal to inspection Palpation (GI): Soft to palpation (to palpation) Rectal Exam - Female: deferred General: Yes bladder normal to inspection External Female Exam: normal external appearance and normal appearance of the urethra Speculum Exam - Vagina: normal appearance of the vagina, normal palpation and normal vaginal discharge Speculum Exam - Cervix: normal appearance of the cervix and normal palpation Bimanual exam- vagina & uterus: normal palpation and normal palpation Bimanual Exam- Adnexa, other: normal adnexae and no masses Skin General skin exam: no rashes or lesions noted Neuro General: patient oriented x3 Cognition (Neuro): normal cognition Extrem General: Yes normal to inspection Psych Attitude: cooperative Thought process: Normal thought process present Assessment & Plan Assessment & Plan (1) Encounter for well woman exam: Code(s): Z01.419 - Encounter for gynecological examination (general) (routine) without abnormal findings Plan: Discussed: Current recommendations for pap smears per ASCCP guidelines. Breast awareness and periodic self breast exams. Maintaining a healthy lifestyle including a well balanced diet and routine exercise All of her questions and concerns were addressed to the best of my ability. RTO in one year for AG. (2) History of painful menstruation: Code(s): Z87.42 - Personal history of other diseases of the female genital tract Plan: Advised to use 3 Advil 200 mg (600 milligrams) with food for pain management. Monitor periods, report any unscheduled bleeding, bleeding episodes less than 21 days apart or heavy prolonged menstrual bleeding. Coding Level of Care Code Est Pt Prev Care 40-64y(92338) Diagnoses Encounter for well woman exam Z01.419 History of painful menstruation Z87.42
[2023-07-27 08:37] VITALS: BP 120/76; BMI 35.2
== END 2023-07-27 09:05 | disposition home or self-care (01) ==
PROVIDERS: Visit Provider Advanced Practice Midwife
DX: Z01.419 Encounter for gynecological examination (general) (routine) without abnormal findings (principal); Z87.42 Personal history of other diseases of the female genital tract
CPT/HCPCS: 99396

== ENCOUNTER → 2023-07-27 08:12 | Outpatient (BNVA) | payer OTHER, SELFPAY | PROVIDERS: Visit Provider Advanced Practice Midwife ==

== ENCOUNTER 2024-01-11 13:15 | Outpatient (REF) | payer OTHER, SELFPAY ==
--- NOTE | ~2024-01-11 | MM_ITS ---
EXAMINATION: MM SCREENING DIGITAL BREAST TOMOSYNTHESIS, BILATERAL CLINICAL INFORMATION: Screening. Asymptomatic. The patient is status post breast reduction. COMPARISON: Mammography: This study is compared with prior exams dating back to 2020. TECHNIQUE: Digital breast tomosynthesis is performed in both the craniocaudal and mediolateral oblique views along with computer-aided detection (CAD). Synthesized 2D images are generated from the tomosynthesis. FINDINGS: There are scattered areas of fibroglandular density (ACR BI-RADS breast composition Category b). There are no significant masses, abnormal calcifications, or other abnormalities. There are bilateral post reduction changes. This includes areas of coarse calcification centrally in each breast. This is guest relations representative of fat necrosis, a benign finding associated with reduction. MM/MM tomosynthesis screening BI IMPRESSION: No mammographic evidence of malignancy. ASSESSMENT: BI-RADS BI-RADS 2 - Benign Findings RECOMMENDATION: Routine annual mammography screening. 1 year F/U This examination should not preclude the clinical evaluation of a suspicious palpable abnormality. This patient's information was entered into a reminder system with a target due date for their next mammogram.
== END 2024-01-11 13:16 | disposition home or self-care (01) ==
LOC: HO.MAMMO 13:15
PROVIDERS: PCP Internal Medicine; Visit Provider Family Medicine
DX: Z12.31 Encounter for screening mammogram for malignant neoplasm of breast (principal)
CPT/HCPCS: 77063; 77067

== ENCOUNTER → 2024-01-11 14:15 | Outpatient (BNV) | payer OTHER, SELFPAY | PROVIDERS: PCP Internal Medicine; Visit Provider Radiology Diagnostic Radiology | DX: Z12.31 Encounter for screening mammogram for malignant neoplasm of breast (principal) | CPT/HCPCS: 77063; 77067 ==

== ENCOUNTER 2024-06-28 10:13 | Outpatient (REF) | payer OTHER, SELFPAY ==
--- NOTE | ~2024-06-28 | XR_ITS ---
EXAMINATION: XR LUMBOSACRAL SPINE CLINICAL INFORMATION: Low back pain, hyperlordosis COMPARISON: None available. TECHNIQUE: Three views of the lumbosacral spine. FINDINGS: There is straightening of lumbar lordosis. There are 5 nonrib-bearing vertebral bodies The vertebral bodies and posterior elements are normal. The disc spaces are preserved and the vertebral alignment is normal. The paraspinal soft tissues are normal. XR/XR lumbar spine 2-3V IMPRESSION: Straightening of lumbar lordosis may be result of muscle spasm. Electronically signed by: Adriano Antonio MD 06/28/2024 11:37 AM EDT
--- NOTE | ~2024-06-28 | XR_ITS ---
EXAMINATION: XR CERVICAL SPINE CLINICAL INFORMATION: Neck pain COMPARISON: None available. TECHNIQUE: 5 views of the cervical spine, inclusive of oblique views, were obtained. FINDINGS: The vertebral alignment is normal. No intrinsic bony abnormality. The disc heights and neural foramina are well maintained. The endplates and posterior elements are normal. No fracture or subluxation. The surrounding prevertebral soft tissues are unremarkable. XR/XR cervical spine 4V IMPRESSION: Unremarkable examination. Electronically signed by: Adriano Antonio MD 06/28/2024 11:39 AM EDT
== END 2024-06-28 10:14 | disposition home or self-care (01) ==
LOC: HO.HHCX 10:13
PROVIDERS: Visit Provider Internal Medicine
DX: M54.2 Cervicalgia (principal); M54.50 Low back pain, unspecified
CPT/HCPCS: 72050; 72100

== ENCOUNTER 2024-07-03 09:45 | Outpatient (REF) | payer OTHER, SELFPAY ==
[2024-07-03 11:12] LABS: MANUAL DIFF FLAG NO
[2024-07-03 11:14] LABS: Basophils Percent Auto 0.5 % (0-2); Eosinophils Absolute Auto 0.1 X10*3/uL (0.0-0.4); Hematocrit 36.8 % (37.0-47.0); Hemoglobin 12.3 g/dl (12.0-16.0); Imm Gran Abs Auto 0.02 X10*3/uL (0.00-0.03); Imm Gran Pct Auto 0.3 % (0.0-0.4); Lymphocytes Absolute Auto 2.4 X10*3/uL (1.2-4.9); Lymphocytes Percent Auto 40.8 % (20-40); Mean Corpuscular HGB Conc 33.4 g/dl (31.0-35.0); Mean Corpuscular Hemoglobin 30.1 pg (27.0-33.0); Mean Platelet Volume 11.1 fL (9.4-12.3); Monocytes Absolute Auto 0.4 X10*3/uL (0.1-1.2); Monocytes Percent Auto 7.1 % (2-11); Neutrophils Absolute Auto 2.9 x10*3/uL (2.0-8.3); Neutrophils Percent Auto 49.3 % (45-73); Platelet Count 223 X10*3/uL (160-400); Red Blood Count 4.09 X10*6/uL (4.20-5.50); Red Cell Distribution Width 12.2 % (11.0-16.0); White Blood Count 5.9 X10*3/uL (4.8-10.8)
[2024-07-03 11:30] LABS: Alanine Aminotransferase 18 U/L (0-31); Albumin Level 4.4 g/dL (3.5-5.0); Alkaline Phosphatase 39 U/L (39-117); Anion Gap 9 (12-20); Aspartate Amino Transferase 19 U/L (5-31); Bilirubin Total 0.9 mg/dL (0.0-1.0); Blood Urea Nitrogen 13 mg/dL (9-16); Calcium 9.5 mg/dL (8.4-10.2); Carbon Dioxide 24 mmol/L (22-29); Chloride 108 mmol/L (96-108); Cholesterol 126 mg/dL (<200); Estimated Glomerular Filt Rate > 60; Glucose Random 85 mg/dL (60-115); HDL Cholesterol 52 mg/dL (>40); LDL Cholesterol Calculated 66 mg/dL (<100); Potassium 4.1 mmol/L (3.3-5.1); Sodium 137 mmol/L (135-145); Total Protein 7.4 g/dL (6.5-8.0); Triglycerides 43 mg/dL (<150)
[2024-07-03 11:45] LABS: Syphilis Screen Nonreactive (Nonreactive)
[2024-07-03 11:47] LABS: TSH reflex Free T4 2.49 uIU/mL (0.32-4.0); Vitamin D 25-OH Total 20.1 ng/mL (>30)
[2024-07-03 11:49] LABS: HBS Num1 0.52 mIU/mL (0-7.99); HBc Num1 0.13 S/CO (0.00-0.79); HBsAGNum1 0.32 S/CO (0.00-0.99); HIV AB/AG Nonreactive (Nonreactive); HIV Num 1 0.08 S/CO (0.00-0.99); Hepatitis B Core Antibody Nonreactive (Nonreactive); Hepatitis B Surface Antigen Negative (Negative); ~HepC Num1 0.19 S/CO (0.00-0.79); ~Hepatitis A Antibody IgM Nonreactive (Nonreactive); ~Hepatitis B Surface Antibody NONREACTIVE (Nonreactive); ~Hepatitis C Antibody Nonreactive (Nonreactive)
[2024-07-03 12:27] LABS: Reflex LDLD? No
== END 2024-07-03 09:46 | disposition home or self-care (01) ==
LOC: HO.HHCL 09:45
PROVIDERS: Visit Provider Internal Medicine
DX: E03.9 Hypothyroidism, unspecified (principal); Z11.3 Encounter for screening for infections with a predominantly sexual mode of transmission; R06.01 Orthopnea; F32.A Depression, unspecified; R06.09 Other forms of dyspnea
CPT/HCPCS: 36415; 80053; 80061; 82306; 84443; 85025; 86704; 86706; 86709; 86780; 86803; 87340; 87389

== ENCOUNTER → 2024-08-09 10:26 | Outpatient (REF) | payer OTHER, SELFPAY ==
--- NOTE | 2024-08-09 10:30 | CA_ITS ---
Transthoracic Echocardiogram Patient (Last, First, Middle): Magalis Moura, Gender: Female Date of : 1980 Age: 44 Procedure Date: 08/09/2024 Procedure Type: Transthoracic Echocardiogram Location: OP Height: 152.4 cm Weight: 78.93 kg BSA: 1.76 m2 Heart Rate: bpm BP: 122 / 60 mmHg [employer]: Referring MD: Jocy Joel MD Symptoms: R06.01 0RTHOPNEA R06.09 VEGA Study Quality: Fair ECG Rhythm: Sinus Conclusions: - The left ventricular systolic function is normal. The calculated ejection fraction is 56% by biplane method. - No obvious valvular pathology seen on this study. Findings Left Ventricle Normal left ventricular cavity size. There is normal left ventricular wall thickness. The left ventricular systolic function is normal. The calculated ejection fraction is 56% by biplane method. There is no evidence of regional wall motion abnormalities. Diastolic function is normal for age. Right Ventricle Normal right ventricular cavity size and systolic function. Atria Both atria are normal in size. Aortic Valve There is a normal trileaflet aortic valve. There is no aortic valve stenosis. There is no aortic valve regurgitation. Mitral Valve The mitral valve appears normal. There is no mitral valve regurgitation. There is no mitral valve stenosis. Pulmonic Valve The pulmonic valve is likely normal. Tricuspid Valve Normal tricuspid valve structure. There is trace tricuspid valve regurgitation. There is no evidence of pulmonary hypertension. Great Vessels The asc aorta is normal in size. Venous The inferior vena cava is normal in size and collapses greater than 50% with inspiration. Pericardium/Pleural There is no evidence of pericardial effusion. Prior Study Comparison No prior study available for comparison. Recommendations, Care & Conclusions No obvious valvular pathology seen on this study. Measurements 2D Linear Measurements IVSd: 0.89 0.6-0.9/0.6-1.0 cm LVIDd: 4.41 3.9-5.3/4.2-5.9 cm LVIDd Index: 2.51 2.4-3.2/2.2-3.1 cm/m2 LVIDs: 2.45 2.0-3.6 cm LVPWd: 0.93 0.7-1.1 cm Ao Root: 2.60 2.1-3.5 cm LA Diam: 3.00 2.7-3.8/3.0-4.0 cm LAIDs Index: 1.70 1.5-2.3 cm/m2 LV Mass: 162.16 67-162/88-224 g LV Mass Index: 92.14 43-95/49-115 g/m2 LVOT Diam: 2.00 3.0+(-)1.3 cm 2D Systolic Function EF 4C: 57.70 >55% EF 2C: 53.90 >55% EF BiP: 55.60 >55% Mitral Valve MV Pk E: 0.81 MV PK A: 0.80 MV Decel Time: 155.00 E/A: 1.00 E'Lateral: 14.90 E'Medial: 6.85 E/E' Med: 11.90 E/E' Lat: 5.50 PHT: 45.00 MVA PHT: 4.89 Decel [place]: 5.26 Aortic Valve AoV Pk Robin: 1.31 AoV Mn Robin: 0.86 AoV VTI: 0.30 AoV Pk Grad: 7.00 Aov Mn Grad: 3.00 BASSEM Cont.VTI: 2.08 LVOT LVOT Pk Robin: 0.94 LVOT Mn Robin: 0.61 LVOT VTI: 0.20 LVOT Pk Grad: 4.00 LVOT Mn Grad: 2.00 LVOT Diam: 2.00 LVOT Area: 3.14 Diastolic Function MV Pk E: 0.81 MV Pk A: 0.80 E/A: 1.00 E'Medial: 6.85 E/E' Med: 11.90 E' Laterial: 14.90 E/E' Lat: 5.50 Right Ventricle TAPSE (mm): 23.00 TVS' Robin: 13.00 Tricuspid Valve TR Pk Robin: 2.00 TR Pk Grad: 16.00 RA Press: 3.00 RVSP: 19.00 Great Vessels Aorta Ao Root-2D: 2.60 2.0-3.7 cm Ao Asc: 2.90 2.1-3.4 cm Pulmonary Valve PV Pk Robin: 0.81 Peak PV Grad: 3.00 Updated in Other Vendor System with Status of Final Heriberto Camarillo MD electronically signed on 08/10/2024 11:05:41 AM with status of Final
== END ==
LOC: HO.CARD 10:26
PROVIDERS: PCP Internal Medicine; Visit Provider Internal Medicine
DX: R06.01 Orthopnea (principal); R06.09 Other forms of dyspnea
CPT/HCPCS: 93306

== ENCOUNTER → 2024-08-09 10:30 | Outpatient (BNV) | payer OTHER, SELFPAY | PROVIDERS: PCP Internal Medicine; Visit Provider Internal Medicine | DX: R06.01 Orthopnea (principal) | CPT/HCPCS: 93306 ==

== ENCOUNTER 2025-01-06 09:47 | Outpatient (REF) | payer OTHER, SELFPAY ==
--- NOTE | ~2025-01-06 | CT_ITS ---
CLINICAL HISTORY: restrictive lung function of pfts CT chest with contrast Comparison: None Findings: Lung wong are clear without acute infiltrates. No significant mediastinal adenopathy. No significant free pleural fluid. No significant focal bony abnormalities. Calcified well cyst deep right outer breast. Dense coarse benign calcifications left breast. Impression: No acute processes This document has been electronically signed by: Sacha Molina MD on 01/06/2025 19:32:14
[2025-01-06] MEDS: iohexoL 350 MG/ML 75 ML INFUS..BTL 65 ML IV (10:53)
== END 2025-01-06 09:48 | disposition home or self-care (01) ==
LOC: HO.CT 09:47
PROVIDERS: PCP Internal Medicine; Visit Provider Internal Medicine
DX: R06.09 Other forms of dyspnea (principal); J98.4 Other disorders of lung
CPT/HCPCS: 71260; Q9967

== ENCOUNTER → 2025-01-06 10:27 | Outpatient (BNV) | payer OTHER, SELFPAY | PROVIDERS: PCP Internal Medicine; Visit Provider Radiology Diagnostic Radiology | DX: R94.2 Abnormal results of pulmonary function studies (principal) | CPT/HCPCS: 71260 ==

== ENCOUNTER 2025-02-07 13:21 | Outpatient (REF) | payer OTHER, SELFPAY ==
--- OUTSIDE RECORDS SUMMARY | 2025-02-07 13:39 | XMS_ITS | Encounter Summary ---
Author Organization [employer] Address [address] [place] [address] [address] [place] [address] Care Team Providers Care Residential Builder Name Role Phone Jocy Joel MD Primary Care Provider + Reason for Visit * Reason Onset Date Comments Referral 07/12/2024 Encounter Details Date Type Department Care Team ([facility] st Contact Info) Description 07/12/2024 Telephone [facility] MEDICINE [address] [place], [place] [phone] Jocy Joel MD [address] [place] [address] Referral Social History Tobacco Use Types Packs/Day Years Used Date Smoking Tobacco: Never Smokeless Tobacco: Never Alcohol Use Standard Drinks/Week Comments Yes 12 (1 standard drink = 0.6 oz pu re alcohol) beer Alcohol Answer Date Recorded How often do you have a drink containing alcohol ? 3 02/13/2023 How many drinks containing a lcohol do you have on a typical day when you are drinking? 4 02/13/2023 How often do you have six or more drinks on one occasion? 3 02/13/2023 Depression Answer Date Recorded Patient Health Questionnaire-9 Score 17 06/28/2024 Patient Health Questionnaire-9 Score 17 06/28/2024 Last PHQ-9: Questionnaire Data Not on file 0 06/28/2024 Housing Stability Answer Date Recorded What is your housing situation today? I have cheikh gaines 06/28/[address] you li ve. Do you have problems with any of the following? Mold 06/28/2024 Food Insecurity Answer Date Recorded Within the past 12 months, y ou worried that your food would run out before you got money to buy more: Sometimes True 2023 Within the past 12 months,th e food you bought just didn't last and you didn't have enough money to get more: Sometimes True 06/28/2024 Transportation Answer Date Recorded In the past 12 months, has l ack of transportation kept you from medical appts, meetings, work or from getting things needed for daily living? No 06/28/2024 Utilities Answer Date Recorded In the past 12 months, has t he electric, gas, oil or water company threatened to shut off services in your home? Yes 06/28/2024 Depression Answer Date Recorded Patient Health Questionnaire-2 Score 6 06/28/2024 Internet Access Answer Date Recorded Internet Access Q1 I am not sure 06/28/2024 Internet Access Q2 Not on file 06/28/2024 Comments No Sex and Gender Information Value Date Recorded Sex Assigned at Female 08/08/2022 10:36 AM EDT Legal Sex Female 10:36 AM EDT Gender Identity Female 08/08/2022 10:36 AM EDT Sexual Orientation Straight 08/08/2022 10 :36 AM EDT documented as of this encounter Miscellaneous Notes * Telephone Encounter - Mata Major - 07/12/2024 10:40 AM EDT Tc from patient calling in regards to the orders for Cardiology and the Pulmonary function test states had called [facility] and was told has not received any orders documented in this encounter Plan of Treatment Upcoming Encounters Date Type Department Care Team (Late st Contact Info) Description 02/07/2025 3:15 PM EDT Office Visit [facility] MEDICINE [address] [place] [id number] Aleisha Yanez MD [address] [place] [address] 03/17/2025 10:30 AM EDT Office Visit [facility] MEDICINE [address] [place] [address] Jocy Joel MD [address] [place] [address] documented as of this encounter Visit Diagnoses Not on filedocumented in this encounter Additional Health Concerns Assessment Noted Time PHQ-9 Depression Total Score: 17 024 10:22 AM EDT documented as of this encounter Care Teams Residential Builder Relationship Specialty Start Date End Date Jocy Joel MD [address] [place] [id number] PCP - General Internal Medicine 04/23/24 documented as of this encounter
--- OUTSIDE RECORDS SUMMARY | 2025-02-07 13:40 | XMS_ITS | Encounter Summary ---
Author Organization [employer] Address [address] [place] [address] [address] [place] [address] Care Team Providers Care Computer Systems Software Architect Name Role Phone Dexter Ta MD Primary Care Prov ider Johnna Hussein NP Primary Care Provider [phone] Jocy Joel MD Primary Care Provider + Encounter Details Date Type Department Care Team (Late st Contact Info) Description 06/30/2023 Orders Only [facility] MEDICINE [address] [place] [address] Provider, MD Macie Social History Tobacco Use Types Packs/Day Years Used Date Smoking Tobacco: Never Assessed Smokeless Tobacco: Never Alcohol Use Standard Drinks/Week Comments Yes 12 (1 standard drink = 0.6 oz pu re alcohol) Alcohol Answer Date Recorded How often do you have a drink containing alcohol ? 3 02/13/2023 How many drinks containing a lcohol do you have on a typical day when you are drinking? 4 02/13/2023 How often do you have six or more drinks on one occasion? 3 02/13/2023 Depression Answer Date Recorded Patient Health Questionnaire-9 Score 0 03/02/2023 Depression Answer Date Recorded Patient Health Questionnaire-2 Score 0 03/02/2023 Comments Unknown Sex and Gender Information Value Date Recorded Sex Assigned at Female 08/08/2022 10:36 AM EDT Legal Sex Female 10:36 AM EDT Gender Identity Female 08/08/2022 10:36 AM EDT Sexual Orientation Straight 08/08/2022 10 :36 AM EDT documented as of this encounter Plan of Treatment Upcoming Encounters Date Type Department Care Team (Late st Contact Info) Description 02/07/2025 3:15 PM EDT Office Visit [address] [address] Aleisha Yanez MD [address] [place] [id number] 03/17/2025 10:30 AM EDT Office Visit [address] [address] Jocy Joel MD [address] [place] [address] documented as of this encounter Procedures Procedure Name Priority Date/Time Associated Diagnosis Comments HM PAP/HPV Routine 12/14/2020 documented in this encounter Results * Hm Pap Smear (12/14/2020) us Historical Provider HEALTH MAINTENANCE Final Result documented in this encounter Visit Diagnoses Not on filedocumented in this encounter Additional Health Concerns Assessment Noted Time PHQ-9 Depression Total Score: 0 03/02/20 23 3:07 PM EDT documented as of this encounter Care Teams Computer Systems Software Architect Relationship Specialty Start Date End Date Dexter Ta MD [address] [place] [id number] PCP - General Internal Medicine 11/15/19 03/25/24 Johnna Hussein NP [address] [place] [id number] PCP - General Family Medicine 03/26/24 04/22/24 Jocy Joel MD [address] [place] [phone] PCP - General Internal Medicine 04/23/24 documented as of this encounter
--- OUTSIDE RECORDS SUMMARY | 2025-02-07 13:40 | XMS_ITS | Clinical Summary ---
Author Organization [employer] Address [address] [place] [address] [address] [place] [address] Care Team Providers Care Green Chain Marker Name Role Phone Jocy Joel MD Primary Care Provider + Allergies Active Allergy Reactions Criticality Noted Date Comments Cortisone 06/28/2024 Crab Extract 06/28/2024 Medications * This document contains information received from the source organization and may not represent a complete record from that organization. ketotifen (Zaditor) 0.025 % ophthalmic solution PLACE ONE DROP IN THE AFFECTED EYE(S) TWICE DAILY NEEDED FOR ALLERGIES 2 Active cholecalciferol (Vitamin D-3) 25 MCG tabletIndications: Chronic rhinitis TAKE ONE TABLET DAILY 90 tablet 6 3 Active albuterol 108 (90 Base) MCG/ACT inhalerIndications :Chest tightness Inhale 2 puffs every 4 (four) hours if needed for wheezing. 18 g 3 Active minoxidil (Rogaine) 2 % external solution Apply topically 2 times daily. 60 mL 1 3 Active fluticasone (Flonase) 50 MCG/ACT nasal sprayIndications:C hronic rhinitis INHALE ONE OR TWO SPRAYS IN EACH NOSTRIL DAILY NEEDED 16 g 6 3 Active montelukast (Singulair) 10 MG tabletIndications: Chronic rhinitis TAKE ONE TABLET AT BEDTIME 90 tablet 3 4 Active levothyroxine (Synthroid, Levoxyl) 75 MCG tabletIndications: Acquired hypothyroidism Take 1 tablet (75 mcg) by mouth before breakfast. 90 tablet 2 4 Active Active Problems Problem Noted Date Diagnosed Date Class 1 obesity due to exces s calories without serious comorbidity with body mass index (BMI) of 34.0 to 34.9 in adult 09/10/2024 Assessment & Plan (09/10/2024 10:04 AM EST): Discussed re weight reduction options including exercise, life style modifications, diet and referral to talent acquisition specialist. Recommended to decrease soda and sugary beverage consumption, increase protein intake with meals (at least 1 portion of protein with each meal) to assist with satiety, increase dietary fiber Recommended at least 150 min/week of moderate intensity exercise. Chronic rhinitis 09/10/2024 Assessment & Plan (09/10/2024 10:37 AM EST): Refer to ENT, continue Flonase. Restrictive lung disease 09/10/2024 Assessment & Plan (09/10/2024 2:30 PM EST): Order CT scan lungs Patient has VEGA/orthopnea Orthopnea 06/28/2024 Assessment & Plan (06/28/2024 10:13 AM EDT): Will order, due to family Hx, an ECHO. Recommended weight reduction and exercise. Check BMP and TSH. Follow up on next visit. Acute bilateral low back pain 06/28/2024 Assessment & Plan (06/28/2024 1:34 PM EDT): Most likely related to obesity, pt has marked hyperlordosis. I gave pt exercises, recommended weight reduction and follow up next visit. VEGA (dyspnea on exertion) 06/28/2024 Assessment & Plan (09/10/2024 10:36 AM EST): Will order chest CT scan to rule out ILD. Echo on 08/09/24 was normal. Assessment & Plan (06/28/2024 1:31 PM EDT): Probably related to obesity, advised to increase exercise and weight reduction. Due to Hx of CHF in family, I will order ECHO and follow up next visit. Neck pain 06/28/2024 Screen for STD (sexually transmitted disease) Assessment & Plan (06/28/2024 1:35 PM EDT): Ordered STI testing, advised to use condom at all times. She does not want to go on control at this time, we discussed options for BC and emergency contraception. Hair loss 03/02/2023 Assessment & Plan (09/10/2024 10:38 AM EST): Reportedly not improving on topical Minoxidil, will refer to dermatology. Assessment & Plan (03/02/2023 3:14 PM EDT): Will start on minoxidil and will refer to dermatology Mild alcohol use disorder 02/13/2023 Depression, unspecified 02/13/2023 Dizziness, nonspecific 12/07/2022 Assessment & Plan (12/07/2022 4:41 PM EST): Self resolving vague compliant that improved with cinnamon tea and sugar. Will send labs, EKG wnl, no orthostasis appreciate and no gross neurological deficit observed on examination Chest tightness 12/07/2022 Assessment & Plan (12/07/2022 4:46 PM EST): Reports chronic issue, reports significant reaction to strong odors and chest tightness, reports has had in the past stress test that have been negative. At this moment will send trial of albuterol and PFT testing, recommended f/up with PCP Acquired hypothyroidism 11/01/2022 Assessment & Plan (09/10/2024 10:04 AM EST): TSH is at goal, will continue Levothyroxine 75 mg and FU TSH in 6 months. Assessment & Plan (06/28/2024 10:12 AM EDT): Check TSH. Continue Levothyroxine 75 mcg per day and I will adjust medications prn lab results. Assessment & Plan (05/25/2023 3:29 PM EDT): On levothyroxine 75mcg, will order new labs for guidance of therapy Assessment & Plan (03/02/2023 3:13 PM EDT): Patient raking 75mcg daily, told to get blood work done for guidance of therapy, no reported side effects Assessment & Plan (01/03/2023 6:30 PM EDT): Clinically euthyroid, levothyroxine was recently increased, told to get blood work repeated after the week of february 13, reinforced importance of medication adherance Assessment & Plan (11/01/2022 3:16 PM EST): Chemically euthyroid, continue oral levothyroxine replacement, no changes, will be made Vitamin D deficiency 11/01/2022 Assessment & Plan (09/10/2024 10:36 AM EST): On vitamin D x 3 months, I gave her information about vitamin D rich foods. Advised regarding outdoor exercise daily for at least 15 minutes. Assessment & Plan (11/01/2022 3:15 PM EST): Patient on vitamin d replacement, will order new labs for guidance of therapy Encounters Date Type Department Care Team Description 02/06/2025 Travel 12/18/2024 Telephone [facility] [address] [place] [phone] Jocy Joel MD Hien recall 12/03/2024 Orders Only [facility] External Provider, [facility] from Last 3 Months Immunizations Name Administration Dates Next Due Tdap 11/15/2019 Social History Tobacco Use Types Packs/Day Years Used Date Smoking Tobacco: Never Smokeless Tobacco: Never Tobacco Cessation:Counseling Given: Not Answered Alcohol Use Standard Drinks/Week Comments Yes 12 [...] Orientation Straight 08/08/2022 10 :36 AM EDT Last Filed Vital Signs Vital Sign Reading Time Taken Comments Blood Pressure 133/86 09/10/2024 9:46 AM EST Pulse 80 09/10/2024 9:46 AM EST Temperature 35.4 ??C (95.8 ??F) 09/10/2024 9:46 AM ES T Respiratory Rate 18 04/25/2023 11:01 AM EDT Oxygen Saturation 100% 09/10/2024 9:46 AM EST Inhaled Oxygen Concentration - - Weight 79.5 kg (175 lb 6 oz) 09/10/2024 9:46 AM EST Height 152.1 cm (4' 11.88 ) 09/10/2024 9:[address] Body Mass Index 34.39 09/10/2024 9:46 AM EST Plan of Treatment Upcoming Encounters Date Type Department Care Team (Late st Contact Info) Description 02/07/2025 3:15 PM EDT Office Visit [facility] [address] [place] [address] Aleisha Yanez MD [address] [place] [address] 03/17/2025 10:30 AM EDT Office Visit [facility] [address] [place], [place] [phone] Jocy Joel MD [address] [place], [place] [phone] Health Maintenance Due Date Last Done Comments CT Colonography 1979 Colonoscopy 1979 Colorectal Cancer Screening 1979 FIT DNA/Cologuard 1979 FIT 1979 FOBT 1979 Sigmoidoscopy 1979 Alcohol/Substance Use Screening 1991 Family Planning (PISQ) 1994 Hepatitis B Vaccines (1 of 3 - 19+ 3-dose series) 1998 COVID-19 Vaccine ( season) 2024 Influenza Vaccine (#1) 2024 Depression Screening 06/28/2025 06/28/2024, 06/28/20 SDOH Screening 06/28/2025 06/28/2024 Tobacco Screening 09/10/2025 09/10/2024 Cervical Cancer Screening 12/14/2025 HPV/Cotest 12/14/2025 12/14/2020, 12/14/2020 Pap Smear 12/14/2025 12/14/2020 Mammogram 01/10/2026 01/11/2024, 12/08, 12/31/2021, Additional history exists Zoster Vaccines (1 of 2) 2029 Lipid Panel 07/03/2029 07/03/2024, 10/04/2021 DTaP/Tdap/Td Vaccines (2 - Td or Tdap) 11/15/2029 11/15/2019 RSV Patients and Patients Aged 60 years or older (1 - 1-dose 75+ series) 2054 HIV Screening Completed 07/03/2024, 11/15/2019 Hepatitis C Screening Completed 07/03/2024, 022 HIB Vaccines Aged Out No longer eligi ble based on patient's age to complete this topic HPV Vaccines Aged Out No longer eligi ble based on patient's age to complete this topic Hepatitis A Vaccines Aged Out No long er eligible based on patient's age to complete this topic IPV Vaccines Aged Out No longer eligi ble based on patient's age to complete this topic Meningococcal Vaccine Aged Out No alan atiya eligible based on patient's age to complete this topic Pneumococcal Vaccine: Pediatrics (0 to 5 Years) and At-Risk Patients (6 to 49) Years) Aged Out No longer eligible based on patient's age to complete this topic RSV under 20 months Aged Out No longe r eligible based on patient's age to complete this topic Rotavirus Vaccines Aged Out No longer eligible based on patient's age to complete this topic Procedures Procedure Name Priority Date/Time Associated Diagnosis Comments CT CHEST W CONTRAST Routine 01/06/2025 7 :32 PM EDT VEGA (dyspnea on exertion) Restrictive lung disease XR SINUS 3 VIEWS Routine 12/03/2024 11:1 3 PM EST HEPATITIS PANEL, GENERAL Routine 07/03/2024 9:47 AM EDT Screen for STD (sexually transmitted disease) HIV 1/2 ANTIGEN/ANTIBODY, FOURTH GENERATION W/RFL Routine 07/03/2024 9:47 AM EDT Screen for STD (sexually transmitted disease) LIPID PANEL WITH REFLEX TO DIRECT LDL Routine 07/03/2024 9:47 AM EDT Acquired hypothyroidism Depression, unspecified depression type VEGA (dyspnea on exertion) BI MAMMOGRAM SCREENING TOMOSYNTHESIS BILATERAL Routine 01/11/2024 1:35 PM EDT ZZZ HISTORICAL HPV E6/E7 RFLX RHONA 16 18/45 Routine 12/14/2020 9:59 AM EST HM PAP/HPV Routine 12/14/2020 from Last 3 Months or Most Recently Relevant to Health Maintenance Results * CT Chest w/ Contrast (01/06/2025 7:32 PM EDT) Anatomical Region Laterality Modality Body, Chest Computed Tomogra phy 01/06/2025 7:32 PM EDT Narrative 01/06/2025 7:34 PM EDT ? [facility] ?[address] ?[place] [address] ? CT Scan Report ? Signed ? Patient: Magalis Moura ?MR#: ?? [id number] ? : 1980 ?Acct:[id number] ? Age/Sex: 44 / F ?ADM Date: 01/06/25 ? Loc: HO.CT ? Attending Dr: Jocy Joel MD ? Ordering Physician: Jocy Joel MD ?? Date of Service: 01/06/25 ?? Procedure(s): CT chest w IV con ?? Accession Number(s): [id number] ? cc: Jocy Joel MD ? Report Number: ?? [id number]: Total DLP = ??120.00 mGy-cm ? CLINICAL HISTORY: restrictive lung function of pfts ? CT chest with contrast ? Comparison: None ? Findings: ? Lung wong are clear without acute infiltrates. ?? No significant mediastinal adenopathy. ?? No significant free pleural fluid. ?? No significant focal bony abnormalities. ?? Calcified well cyst deep right outer breast. ?? Dense coarse benign calcifications left breast. ? Impression: ? No acute processes ? This document has been electronically signed by: Sacha Molina MD on ?? 01/06/2025 19:32:14 ? Dictated By: ?Sacha Molina MD ? Signed By: ?<Electronically signed by Sacha Molina MD in OV> ? 01/06/251932 ? DD/ 31 ? TD/TT: 01/06/251931 ? Communications Systems Engineer: ? Procedure Note Stephani, Kam - 01/06/[address] [place] [address] CT Scan Report Signed Patient: Magalis MouraMR#: [id number] : 1980Acct:[id number] Age/Sex: 44 / FADM Date: 01/06/25 Loc: HO.CT Attending Dr: Jocy Joel MD Ordering Physician: Jocy Joel MD Date of Service: 01/06/25 Procedure(s): CT chest w IV con Accession Number(s): [id number] cc: Jocy Joel MD Report Number: [id number]: Total DLP = 120.00 mGy-cm CLINICAL HISTORY: restrictive lung function of pfts CT chest with contrast Comparison: None Findings: Lung wong are clear without acute infiltrates. No significant mediastinal adenopathy. No significant free pleural fluid. No significant focal bony abnormalities. Calcified well cyst deep right outer breast. Dense coarse benign calcifications left breast. Impression: No acute processes This document has been electronically signed by: Sacha Molina MD on 01/06/2025 19:32:14 Dictated By: Sacha Molina MD Signed By: <Electronically signed by Sacha Molina MD in OV> 01/06/251932 DD/ 31 TD/TT: 01/06/251931 Communications Systems Engineer: us Jocy Joel MD IMG CT PROCEDURES Final Result * XR Sinus 3 Views (12/03/2024 11:13 PM EST) Anatomical Region Laterality Modality Radiographic Hillary ging 12/03/2024 11:1 3 PM EST Narrative 12/03/2024 11:15 PM EST ? [facility] ?[address] ?[place] [address] ?XRay Report ? Signed ? Patient: Darvin Fox,Magalis ?MR#: ?? [id number] ? : 1980 ?Acct:[id number] ? Age/Sex: 44 / F ?ADM Date: 02/25/25 ? Loc: HO.XRAY ? Attending Dr: Maco Wolf ? Ordering Physician: Maco Wolf ?? Date of Service: 12/03/24 ?? Procedure(s): XR sinus min 3V ?? Accession Number(s): [id number] ? cc: Jocy Joel MD; Maco Wolf ? CLINICAL HISTORY: SINUSITIS ? 5 view sinuses ? Comparison: None ? Findings: ?? Mild fluid of the maxillary sinuses as can be seen with reported sinusitis. ?? No displaced fracture by radiographs. No dislocation of the partially ?? imaged temporomandibular joints, with mild osteoarthritis. Metal of the ?? mouth is noted. ? IMPRESSION: ?? Mild fluid, including maxillary sinuses concerning for sinusitis. ? This document has been electronically signed by: Edy Louis MD on ?? 12/03/2024 23:13:03 ? Dictated By: ?Edy Louis MD ? Signed By: ?<Electronically signed by Edy Louis MD in OV> ? 12/03/24 2314 ? DD/ 12 ? TD/TT: 12/03/242312 ? Communications Systems Engineer: ? Procedure Note Kam Styles - 12/26/[address] [address] XRay Report Signed Patient: Magalis MouraMR#: [id number] : 1980Acct:[id number] Age/Sex: 44 / FADM Date: 12/03/24 Loc: MARK Attending Dr: Maco Wolf Ordering Physician: Maco Wolf Date of Service: 12/03/24 Procedure(s): XR sinus min 3V Accession Number(s): [id number] cc: Jocy Joel MD; Maco Wolf CLINICAL HISTORY: SINUSITIS 5 view sinuses Comparison: None Findings: Mild fluid of the maxillary sinuses as can be seen with reportedsinusitis. No displaced fracture by radiographs. No dislocation of the partially imaged temporomandibular joints, with mild osteoarthritis. Metal of the mouth is noted. IMPRESSION: Mild fluid, including maxillary sinuses concerning for sinusitis. This document has been electronically signed by: Edy Louis MD on 12/03/2024 23:13:03 Dictated By: Edy Louis MD Signed By: <Electronically signed by Edy Louis MD in OV> 12/03/242313 DD/ 12 TD/TT: 12/03/242312 Communications Systems Engineer: [facility] External Provider IMG XR PROCEDURES Edited Result - Final * Lipid Panel with Reflex to Direct LDL (07/03/2024 9:47 AM EDT) Triglycerides 43 <150 mg/dL [facility] Comment:Desirable Triglyceri de: less than 150 mg/dLBorderline High Triglyceride 150-199 mg/dLHigh Triglyceride: 200-499 mg/dLVery High Triglyceride: greater than or equal to 5OO mg/dL Cholesterol 126 <200 mg/dL [facility] Comment:Desirable Cholestero l: less than 200 mg/dLBorderline High Cholesterol: 200-239 mg/dLHigh Cholesterol: greater than 239 mg/dL LDL Cholesterol Calculated 66 <100 mg/dL [facility] Comment:Desirable LDL: less than 100 mg/dLNear Optimal/Above Optimal LDL: 110- 129 mg/dLBorderline High LDL: 130-159 mg/dLHigh LDL: 160-189 mg/dLVery High LDL: greater than or equal to 190 mg/dL HDL Cholesterol 52 >40 mg/dL [facility] Comment:Desirable HDL: great er than 40 mg/dL Note: This HDL assay may give artificially low results in patients with liver disease. Blood 07/03/2024 9:47 AM EDT 07/03/2024 11:09 AM EDT Jocy Joel MD LAB BLOOD ORDERABLES Fin al Result [facility] [address] [place], [place] [phone] * Hepatitis Panel, General (07/03/2024 9:47 AM EDT) Hepatitis A IgM Nonreactive Nonreactive [facility] Comment:IgM antibodies to HUDSON V not detected; does not exclude earlyacute or recovered HAV infection. ~Hepatitis B Surface Antibody NONREACTIVE Nonreactive [facility] Comment:Nonreactive: < 8.00 mIU/mL Hepatitis B Core Antibody Nonreactive Nonreactive [facility] Hepatitis C Antibody Nonreactive Nonreactive [facility] Comment:Antibodies to HCV no t detected; does not exclude early acuteHCV infection. Hepatitis B Surface Ag Negative Negative [facility] Blood 07/03/2024 9:47 AM EDT 07/03/2024 11:13 AM EDT us Jocy Joel MD LAB BLOOD ORDERABLES Fin al Result Performing Organization Address [facility]/ZIP Co de Phone Number [facility] [address] [place] [phone] * HIV-1/2 Antigen and Antibodies, Fourth Generation, with Reflexes (07/03/2024 9:47 AM EDT) HIV AB/AG Nonreactive Nonreactive [facility] Comment:HIV-1 p24 Ag and/or HIV-1/HIV-2 Ab not detected.A test result that is nonreactive does not exclude thepossibility of exposure to or infection with HIV-1 and/orHIV-2. Nonreactive results in this assay for individualswith prior exposure to HIV-1 and/or HIV-2 may be due toantigen and antibody levels that are below the limit ofdetection of this assay.The ApniCure HIV Ag/Ab Combo assay result andsupplemental assay results should be interpreted inconjunction with the patient's clinical presentation,history and other laboratory results. If the results areinconsistent with clinical evidence, additional testing issuggested to confirm the result. Blood Venous blood specimen / Unknown 07/03/2024 9:47 AM EDT 07/03/2024 11:13 AM EDT us Jocy Joel MD LAB BLOOD ORDERABLES Fin al Result Performing Organization Address [facility]/ZIP Co de Phone Number [facility] [address] [place] [phone] * BI Mammogram Screening Tomosynthesis Bilateral (01/11/2024 1:35 PM EDT) Anatomical Region Laterality Modality Breast Bilateral Mammography 01/11/2024 1:35 PM EDT Narrative 01/21/2024 9:53 PM EDT ? [facility] [place] ? [address] ?[place] [address] ? Mammography Report ? Signed ? Patient: Magalis Moura ?MR#: ?? [id number] ? : 1980 ?Acct:[id number] ? Age/Sex: 43 / F ?ADM Date: 01/11/24 ? Loc: HO.MAMMO ? Attending Dr: Mary Estrada MD ? Ordering Physician: Mary Estrada MD ?Results: 2Beni ?? gn Findings ? Date of Service: 01/11/24 ?Follow Up: 1 Year From Orig ?? inal Mammogram ? Procedure(s): MM tomosynthesis screening BI ?? Accession Number(s): [id number] ? cc: Dexter Ta MD; Mary Estrada MD ? EXAMINATION: ?? MM SCREENING DIGITAL BREAST TOMOSYNTHESIS, BILATERAL ? CLINICAL INFORMATION: ? Screening. Asymptomatic. ? The patient is status post breast reduction. ? COMPARISON: ?? Mammography: This study is compared with prior exams dating back to ?? 2020. ? TECHNIQUE: ?? Digital breast tomosynthesis is performed in both the craniocaudal and ?? mediolateral oblique views along with computer-aided detection (CAD). ?? Synthesized 2D images are generated from the tomosynthesis. ? FINDINGS: ?? There are scattered areas of fibroglandular density (ACR BI-RADS breast ?? composition Category b). ? There are no significant masses, abnormal calcifications, or other ?? abnormalities. ? There are bilateral post reduction changes. This includes areas of ?? coarse calcification centrally in each breast. This is customer counter representative ?? of fat necrosis, a benign finding associated with reduction. ? MM/MM tomosynthesis screening BI ?? IMPRESSION: ?? No mammographic evidence of malignancy. ? ASSESSMENT: ? BI-RADS BI-RADS 2 - Benign Findings ? RECOMMENDATION: ?? Routine annual mammography screening. ? 1 year F/U ? This examination should not preclude the clinical evaluation of a ?? suspicious palpable abnormality. ? This patient's information was entered into a reminder system with a ?? target due date for their next mammogram. ? Dictated By: ?Sydnee Henao MD ? Signed By: ?<Electronically signed by Sydnee Henao MD in OV> ? 01/21/24 2149 ? DD/ 1335 ? TD/TT: ? Communications Systems Engineer: ? Procedure Note Stephani, Image - 01/21/2024 [facility] [address] [place] [address] [place] [address] Mammography Report Signed Patient: Magalis MouraMR#: [id number] : 1980Acct:[id number] Age/Sex: 43 / FADM Date: 01/11/24 Loc: XIMENA Attending Dr: Mary Estrada MD Ordering Physician: Mary Estradaesults: 2Beni gn Findings Date of Service: 01/11/24Follow Up: 1 Year From Orig inal Mammogram Procedure(s): MM tomosynthesis screening BI Accession Number(s): [id number] cc: Dexter Ta MD; Mary Estrada MD EXAMINATION: MM SCREENING DIGITAL BREAST TOMOSYNTHESIS, BILATERAL CLINICAL INFORMATION: Screening. Asymptomatic. The patient is status post breast reduction. COMPARISON: Mammography: This study is compared with prior exams dating back to 2020. TECHNIQUE: Digital breast tomosynthesis is performed in both the craniocaudal and mediolateral oblique views along with computer-aided detection (CAD). Synthesized 2D images are generated from the tomosynthesis. FINDINGS: There are scattered areas of fibroglandular density (ACR BI-RADS breast composition Category b). There are no significant masses, abnormal calcifications, or other abnormalities. There are bilateral post reduction changes. This includes areas of coarse calcification centrally in each breast. This is customer counter representative of fat necrosis, a benign finding associated with reduction. MM/MM tomosynthesis screening BI IMPRESSION: No mammographic evidence of malignancy. ASSESSMENT: BI-RADS BI-RADS 2 - Benign Findings RECOMMENDATION: Routine annual mammography screening. 1 year F/U This examination should not preclude the clinical evaluation of a suspicious palpable abnormality. This patient's information was entered into a reminder system with a target due date for their next mammogram. Dictated By: Sydnee Henao MD Signed By: <Electronically signed by Sydnee Henao MD in OV> 01/21/24 2149 DD/ 1335 TD/TT: Communications Systems Engineer: Mary Estrada MD IMG BI PROCEDURES Edited Resu lt - Final * HPV E6/E7 RFLX RHONA 16 18/45 (12/14/2020 9:59 AM EST) HPV 16 RNA [facility] HPV 18/45 RNA [facility] HPV E6 E7 ADD [facility] HPV mRNA E6/E7 rflx Not Detected Not Detected [facility] Comment: Methodology: Energy Specialist-Mediated Amplification This assay detects E6/E7 viral messenger RNA (mRNA) from 14 high-risk HPV types (16,18,31,33,35,39,45,51,52,56,58,59,66,68). The analytical performance characteristics of this assay have been determined by [employer]. The modifications have not been cleared or approved by the FDA. This assay has been validated pursuant to the CLIA regulations and is used for clinical purposes. For additional information, please refer to http://education.[employer]/faq/ELR627h9 (This link if provided for information/ educational purposes only.) THIS TEST WAS PERFORMED AT: [employer] [address] [place] [address] [address] [facility],[address] [place], [place] ??[phone] VERNELL MARIE MD 12/14/2020 9:59 AM EST Tricia Small HISTORICAL/NON ORDERABLE LABS Fi nal Result [facility] [address] * Hm Pap Smear (12/14/2020) Historical Provider HEALTH MAINTENANCE Final Result from Last 3 Months or Most Recently Relevant to Health Maintenance [place] [address] [address] [place] [id number] OPEN ACCESS Care Teams Green Chain Marker Relationship Specialty Start Date End Date Jocy Joel MD [address] [place] [phone] PCP - General Internal Medicine 04/23/24
--- OUTSIDE RECORDS SUMMARY | 2025-02-07 13:40 | XMS_ITS | Encounter Summary ---
Author Organization [employer] Address [address] [facility] 7t [place] [address] Care Team Providers Care Hypo Splasher Name Role Phone Dexter Ta MD Primary Care Prov ider Johnna Hussein NP Primary Care Provider [phone] Jocy Joel MD Primary Care Provider + Reason for Visit * Reason Onset Date Comments Appointment Request 02/07/2024 Encounter Details Date Type Department Care Team (Late st Contact Info) Description 02/07/2024 Telephone [facility] [address] [place] [address] Dexter Ta MD [address] [place] [address] Appointment Request Social History Tobacco Use Types Packs/Day Years [...] Recorded Patient Health Questionnaire-9 Score 0 03/02/2023 Housing Stability Answer Date Recorded What is your housing situation today? I have cheikh gaines 08/07/[address] you li ve. Do you have problems with any of the following? None of the above 08/07/2023 Food Insecurity Answer Date Recorded Within the past 12 months, y ou worried that your food would run out before you got money to buy more: Never True 08/07/2023 Within the past 12 months,th e food you bought just didn't last and you didn't have enough money to get more: Never True Transportation Answer Date Recorded In the past 12 months, has l ack of transportation kept you from medical appts, meetings, work or from getting things needed for daily living? No 08/07/2023 Utilities Answer Date Recorded In the past 12 months, has t he electric, gas, oil or water company threatened to shut off services in your home? No 08/07/2023 Depression Answer Date Recorded Patient Health Questionnaire-2 Score 0 03/02/2023 Comments Unknown Sex and Gender Information Value Date Recorded Sex Assigned at Female 08/08/2022 10:36 AM EDT Legal Sex Female 10:36 AM EDT Gender Identity Female 08/08/2022 10:36 AM EDT Sexual Orientation Straight 08/08/2022 10 :36 AM EDT documented as of this encounter Miscellaneous Notes * Telephone Encounter - Mata Major - 02/07/2024 12:27 PM EDT Tc from patient calling to request the appt for 02/26 televisit to be a in person visit documented in this encounter Plan of Treatment Upcoming Encounters Date Type Department Care Team (Late st Contact Info) Description 02/07/2025 3:15 PM EDT Office Visit [facility] [address] [place] [phone] Aleisha Yanez MD [address] [place] [phone] 03/17/2025 10:30 AM EDT Office Visit [facility] [address] [place] [address] [phone] Jocy Joel MD [address] [place] [phone] documented as of this encounter Visit Diagnoses Not on filedocumented in this encounter Additional Health Concerns Assessment Noted Time PHQ-9 Depression Total Score: 0 03/02/20 23 3:07 PM EDT documented as of this encounter Care Teams Hypo Splasher Relationship Specialty Start Date End Date Dexter Ta MD [address] [place] [address] PCP - General Internal Medicine 11/15/19 03/25/24 Johnna Hussein NP [address] [place] [address] PCP - General Family Medicine 03/26/24 04/22/24 Jocy Joel MD [address] [place] [address] PCP - General Internal Medicine 04/23/24 documented as of this encounter
--- OUTSIDE RECORDS SUMMARY | 2025-02-07 13:40 | XMS_ITS | Encounter Summary ---
Author Organization [employer] Address [address] [facility] 7t [place] [address] Care Team Providers Care Trim Stencil Maker Name Role Phone Jocy Joel MD Primary Care Provider + Encounter Details Date Type Department Care Team (Latest Contact Info) Description 02/06/2025 Travel Social History Tobacco Use Types Packs/Day Years [...] Description 02/07/2025 3:15 PM EDT Office Visit [facility] [address] [place] [phone] Aleisha Yanez MD [address] [place] [address] 03/17/2025 10:30 AM EDT Office Visit [facility] [address] [place] [address] Jocy Joel MD [address] [place] [address] documented as of this encounter Visit Diagnoses Not on filedocumented in this encounter Additional Health Concerns Assessment Noted Time PHQ-9 Depression Total Score: 17 024 10:22 AM EDT documented as of this encounter Care Teams Trim Stencil Maker Relationship Specialty Start Date End Date Jocy Joel MD [address] [place] [address] PCP - General Internal Medicine 04/23/24 documented as of this encounter
== END 2025-02-07 13:22 | disposition home or self-care (01) ==
LOC: HO.MAMMO 13:21
PROVIDERS: PCP Internal Medicine; Visit Provider Internal Medicine
DX: Z12.31 Encounter for screening mammogram for malignant neoplasm of breast (principal)
CPT/HCPCS: 77063; 77067

== ENCOUNTER → 2025-02-07 14:30 | Outpatient (BNV) | payer OTHER, SELFPAY | PROVIDERS: PCP Internal Medicine; Visit Provider Internal Medicine | DX: Z12.31 Encounter for screening mammogram for malignant neoplasm of breast (principal) | CPT/HCPCS: 77063; 77067 ==

== ENCOUNTER 2025-03-17 10:49 | Outpatient (REF) | payer OTHER, SELFPAY ==
--- OUTSIDE RECORDS SUMMARY | 2025-03-17 12:15 | XMS_ITS | Encounter Summary ---
Author Organization [employer] Address [address] [place] [address] 7 [place] [address] Care Team Providers Care Rn Transition Name Role Phone Jocy Joel MD Primary Care Provider + Reason for Visit * Reason Onset Date Comments Referral 07/12/2024 Encounter Details Date Type Department Care Team ([facility] st Contact Info) Description 07/12/2024 Telephone [facility] [address] [place], [place] [phone] Jocy Joel MD [address] [place] [address] Referral Social History Tobacco Use Types Packs/Day [...] the Pulmonary function test states had called [facility] and was told has not received any orders documented in this encounter Plan of Treatment Not on file documented as of this encounter Visit Diagnoses Not on filedocumented in this encounter Additional Health Concerns Assessment Noted Time PHQ-9 Depression Total Score: 17 024 10:22 AM EDT documented as of this encounter Care Teams Rn Transition Relationship Specialty Start Date End Date Jocy Joel MD [address] [place] [address] PCP - General Internal Medicine 04/23/24 documented as of this encounter
[2025-03-17 13:08] LABS: MANUAL DIFF FLAG NO
[2025-03-17 13:11] LABS: Basophils Percent Auto 0.6 % (0-2); Eosinophils Absolute Auto 0.1 X10*3/uL (0.0-0.4); Eosinophils Percent Auto 2.2 % (0-4); Hematocrit 39.9 % (37.0-47.0); Hemoglobin 12.8 g/dl (12.0-16.0); Imm Gran Abs Auto 0.04 X10*3/uL (0.00-0.03); Imm Gran Pct Auto 0.6 % (0.0-0.4); Lymphocytes Absolute Auto 2.5 X10*3/uL (1.2-4.9); Mean Corpuscular HGB Conc 32.1 g/dl (31.0-35.0); Mean Corpuscular Volume 90.3 fL (80.0-98.0); Mean Platelet Volume 10.8 fL (9.4-12.3); Monocytes Absolute Auto 0.5 X10*3/uL (0.1-1.2); Monocytes Percent Auto 7.6 % (2-11); Neutrophils Absolute Auto 3.1 x10*3/uL (2.0-8.3); Platelet Count 268 X10*3/uL (160-400); Red Blood Count 4.42 X10*6/uL (4.20-5.50); Red Cell Distribution Width 12.4 % (11.0-16.0); White Blood Count 6.3 X10*3/uL (4.8-10.8)
[2025-03-17 13:36] LABS: B Type Natriuretic Peptide < 10 pg/mL (<100)
[2025-03-17 13:58] LABS: TSH reflex Free T4 1.79 uIU/mL (0.32-4.0)
== END 2025-03-17 10:50 | disposition home or self-care (01) ==
LOC: HO.HHCL 10:49
PROVIDERS: Visit Provider Internal Medicine
DX: R06.09 Other forms of dyspnea (principal)
CPT/HCPCS: 36415; 83880; 84443; 85025

== ENCOUNTER 2025-05-09 16:14 | Outpatient (REF) | payer OTHER, SELFPAY ==
--- NOTE | ~2025-05-09 | US_ITS ---
EXAMINATION: US TRIPLEX LOWER EXTREMITY, BILATERAL CLINICAL INFORMATION: Lower extremity edema. COMPARISON: None available. TECHNIQUE: Color-flow triplex imaging with spectral analysis and compression Doppler were performed on the bilateral lower extremities. FINDINGS: Respiratory variation, normal compression and augmented flow are noted throughout the bilateral lower extremities. The visualized common femoral vein, superficial femoral vein, profunda femoral vein, popliteal vein and midcalf peroneal and posterior tibial venous segments show no evidence of deep venous thrombosis bilaterally. There is no Manning's cyst. US/US venous duplex LE BI IMPRESSION: No evidence of deep venous thrombosis involving the bilateral lower extremities. Electronically signed by: Hamzah Thomas MD 05/09/2025 04:42 PM EDT
--- OUTSIDE RECORDS SUMMARY | 2025-05-09 16:18 | XMS_ITS | Encounter Summary ---
Author Organization [employer] Address [address] [place] [address] 7 [place] [address] Care Team Providers Care Reception Manager Name Role Phone Jocy Joel MD Primary Care Provider + Reason for Visit * Reason Onset Date Comments Referral 07/12/2024 Encounter Details Date Type Department Care Team ([facility] st Contact Info) Description 07/12/2024 Telephone [facility] [address] [place], [place] [phone] Jocy Joel MD [address] [place] [address] Referral Social History Tobacco Use Types Packs/Day [...] the Pulmonary function test states had called [facility] and was told has not received any orders documented in this encounter Plan of Treatment Upcoming Encounters Date Type Department Care Team (Late st Contact Info) Description 06/27/2025 9:45 AM EDT Office Visit [facility] [address] [place] [address] Jocy Joel MD [address] [place] [address] 07/10/2025 9:00 AM EDT Office Visit [facility] OPTOMETRY [address] [place] [address] Pao Roach, OD [address] [place] [address] 07/18/2025 9:45 AM EDT Office Visit [facility] [address] [place] [address] Aleisha Yanez MD [address] [place] [address] documented as of this encounter Visit Diagnoses Not on filedocumented in this encounter Additional Health Concerns Assessment Noted Time PHQ-9 Depression Total Score: 17 024 10:22 AM EDT documented as of this encounter Care Teams Reception Manager Relationship Specialty Start Date End Date Jocy Joel MD [address] [place] [address] PCP - General Internal Medicine 04/23/24 documented as of this encounter
== END 2025-05-09 16:15 | disposition home or self-care (01) ==
LOC: HO.US 16:14
PROVIDERS: Visit Provider Nurse Practitioner
DX: R60.0 Localized edema (principal)
CPT/HCPCS: 93970

== ENCOUNTER → 2025-05-09 16:19 | Outpatient (BNV) | payer OTHER, SELFPAY | PROVIDERS: Visit Provider Radiology Diagnostic Radiology | DX: R60.0 Localized edema (principal) | CPT/HCPCS: 93970 ==

== ENCOUNTER → 2025-06-02 20:36 | Outpatient (BNV) | payer OTHER, SELFPAY | PROVIDERS: Visit Provider Radiology Vascular & Interventional Radiology | DX: R06.02 Shortness of breath (principal) | CPT/HCPCS: 71045 ==

== ENCOUNTER 2025-06-02 20:47 | Emergency (ER) | payer OTHER, SELFPAY ==
--- NOTE | ~2025-06-02 | XR_ITS ---
CLINICAL HISTORY: SOB 1 view chest x-ray Comparison: CT/SR - CT CHEST W IV CON - 01/06/25 10:27 EDT Findings: Lungs are clear. Evaluation is somewhat limited by soft tissue attenuation. Coarse left breast calcification. Cardiac and mediastinal contours are normal. No acute fracture. IMPRESSION: 1. No acute findings. This document has been electronically signed by: Osvaldo Chauhan MD on 06/02/2025 21:52:32
[2025-06-02 21:11] VITALS: BP 145/83; PULSE 84; RESP 19; TEMP 36.4; O2SAT 98; BMI 35.3
[2025-06-02 21:51] LABS: MANUAL DIFF FLAG NO
[2025-06-02 21:52] LABS: Hematocrit 34.7 % (37.0-47.0); Hemoglobin 11.5 g/dl (12.0-16.0); Imm Gran Abs Auto 0.01 X10*3/uL (0.00-0.03); Imm Gran Pct Auto 0.1 % (0.0-0.4); Lymphocytes Absolute Auto 3.4 X10*3/uL (1.2-4.9); Mean Corpuscular HGB Conc 33.1 g/dl (31.0-35.0); Mean Corpuscular Hemoglobin 29.4 pg (27.0-33.0); Mean Corpuscular Volume 88.7 fL (80.0-98.0); NRBC Abs Auto 0.000 X10*3/uL (0.0-0.012); NRBC Pct Auto 0.0 /100WBC (0.0-0.2); Platelet Count 249 X10*3/uL (160-400); Red Blood Count 3.91 X10*6/uL (4.20-5.50); White Blood Count 8.4 X10*3/uL (4.8-10.8)
[2025-06-02 22:17] LABS: Anion Gap 14 (12-20); Blood Urea Nitrogen 17 mg/dL (9-16); Calcium 9.5 mg/dL (8.4-10.2); Carbon Dioxide 27 mmol/L (22-29); Chloride 105 mmol/L (96-108); Creatinine Clr Calc Pharmacy 90.2; Estimated Glomerular Filt Rate > 60; Potassium 3.6 mmol/L (3.3-5.1); Sodium 141 mmol/L (135-145)
--- OUTSIDE RECORDS SUMMARY | 2025-06-02 22:21 | XMS_ITS | Encounter Summary ---
Author Organization [employer] Address [address] [place] [address] 7 [place] [address] Care Team Providers Care Extraction Machine Operator Name Role Phone Jocy Joel MD Primary Care Provider + Reason for Visit * Reason Onset Date Comments Referral 07/12/2024 Encounter Details Date Type Department Care Team ([facility] st Contact Info) Description 07/12/2024 Telephone [facility] [address] [place], [place] [phone] Jocy Joel MD [address] [place] [address] Referral Social History Tobacco Use Types Packs/Day [...] the Pulmonary function test states had called [facility] and was told has not received any orders documented in this encounter Plan of Treatment Upcoming Encounters Date Type Department Care Team (Late st Contact Info) Description 06/27/2025 9:45 AM EDT Office Visit [facility] [address] [place] [address] Jocy Joel MD [address] [place] [address] 07/10/2025 9:00 AM EDT Office Visit [facility] OPTOMETRY [address] [place] [address] Pao Roach, OD [address] [place] [address] 07/18/2025 9:45 AM EDT Office Visit [facility] [address] [place] [address] Aleisha Yanez MD [address] [place] [address] documented as of this encounter Visit Diagnoses Not on filedocumented in this encounter Additional Health Concerns Assessment Noted Time PHQ-9 Depression Total Score: 17 024 10:22 AM EDT documented as of this encounter Care Teams Extraction Machine Operator Relationship Specialty Start Date End Date Jocy Joel MD [address] [place] [address] PCP - General Internal Medicine 04/23/24 documented as of this encounter
--- OUTSIDE RECORDS SUMMARY | 2025-06-02 22:21 | XMS_ITS | Encounter Summary ---
Author Organization [employer] Address [address] [place] [address] 7t [place] [address] Care Team Providers Care Hat Marker Name Role Phone Dexter Ta MD Primary Care Prov ider Johnna Hussein NP Primary Care Provider [phone] Jocy oJel MD Primary Care Provider + Encounter Details Date Type Department Care Team (Late st Contact Info) Description 06/30/[address] [facility] [address] [place] [address] Provider, MD Macie Social History Tobacco Use [...] Description 06/27/2025 9:45 AM EDT Office Visit [facility] [address] [place] [address] Jocy Joel MD [address] [place] [address] 07/10/2025 9:00 AM EDT Office Visit [facility] OPTOMETRY [address] [place] [address] Pao Roach, OD [address] [place] [address] 07/18/2025 9:45 AM EDT Office Visit [facility] [address] [place] [address] Aleisha Yanez MD [address] [place] [address] documented as of this encounter Procedures Procedure Name Priority Date/Time Associated Diagnosis Comments HM PAP/HPV Routine 12/14/2020 documented in this encounter Results * Hm Pap Smear (12/14/2020) Historical Provider HEALTH MAINTENANCE Final Result documented in this encounter Visit Diagnoses Not on filedocumented in this encounter Additional Health Concerns Assessment Noted Time PHQ-9 Depression Total Score: 0 03/02/20 23 3:07 PM EDT documented as of this encounter Care Teams Hat Marker Relationship Specialty Start Date End Date Dexter Ta MD [address] [place] [address] PCP - General Internal Medicine 11/15/19 03/25/24 Johnna Hussein NP [address] [place] [address] PCP - General Family Medicine 03/26/24 04/22/24 Jocy Joel MD [address] [place] [address] PCP - General Internal Medicine 04/23/24 documented as of this encounter
--- OUTSIDE RECORDS SUMMARY | 2025-06-02 22:21 | XMS_ITS | Encounter Summary ---
Author Organization [employer] Address [address] [place] [address] 7 [place] [address] Care Team Providers Care Netbackup Admin Name Role Phone Dexter Ta MD Primary Care Prov ider Johnna Hussein NP Primary Care Provider Jocy Joel MD Primary Care Provider + Reason for Visit * Reason Onset Date Comments Appointment Request 02/07/2024 Encounter Details Date Type Department Care Team (Late st Contact Info) Description 02/07/2024 Telephone [facility] [address] [place] [address] Dexter Ta MD [address] [place] [address] Appointment Request Social History Tobacco Use Types [...] Visit [facility] [address] [place] [address] Jocy Joel MD [address] [place] [address] 07/10/2025 9:00 AM EDT Office Visit [facility] OPTOMETRY [address] [place] [address] Pao Roach, OD [address] [place] [address] 07/18/2025 9:45 AM EDT Office Visit [facility] [address] [place] [address] Aleisha Yanez MD [address] [place] [address] documented as of this encounter Visit Diagnoses Not on filedocumented in this encounter Additional Health Concerns Assessment Noted Time PHQ-9 Depression Total Score: 0 03/02/20 23 3:07 PM EDT documented as of this encounter Care Teams Netbackup Admin Relationship Specialty Start Date End Date Dexter Ta MD [address] [place] [address] PCP - General Internal Medicine 11/15/19 03/25/24 Johnna Hussein NP [address] [place] [address] PCP - General Family Medicine 03/26/24 04/22/24 Jocy Joel MD [address] [place] [address] PCP - General Internal Medicine 04/23/24 documented as of this encounter
--- OUTSIDE RECORDS SUMMARY | 2025-06-02 22:21 | XMS_ITS | Clinical Summary ---
Author Organization [employer] Address [address] [place] [address] [address] [place] [address] Care Team Providers Care Yard Motor Operator Name Role Phone Jocy Joel MD [...] needed for wheezing. 18 g 3 Active fluticasone (Flonase) 50 MCG/ACT nasal [...] before breakfast. 90 tablet 2 4 Active Blood Pressure Monitoring (Blood Pressure Cuff) misc Use daily as prescribed 1 each 5 Active Active Problems Problem Noted Date Diagnosed Date Class 2 severe obesity due t o excess calories with serious comorbidity and body mass index (BMI) of 36.0 to 36.9 in adult 03/17/2025 Assessment & Plan (03/17/2025 10:49 AM EDT): Discussed re weight reduction options including exercise, life style modifications, diet. Recommended to decrease soda and sugary beverage consumption, increase protein intake with meals (at least 1 portion of protein with each meal) to assist with satiety, increase dietary fiber Recommended at least 150 min/week of moderate intensity exercise. Will do a referral to dietitian, follow-up with me in 3 months and will consider medications. Elevated blood pressure reading 03/17/2025 Assessment & Plan (03/17/2025 10:48 AM EDT): May be related to obesity, deconditioning. Counseled re low salt diet/increase moderate physical activity. Check home BP BIW and prn CP/HUDSON/VEGA and follow-up with me in 3 months Non smoking patient.` Chronic rhinitis 09/10/2024 Assessment & Plan (09/10/2024 10:37 AM EST): Refer to ENT, continue Flonase. Restrictive lung disease 09/10/2024 Assessment & Plan (03/17/2025 10:47 AM EDT): Most likely related to obesity, will work on weight reduction and follow-up Assessment & Plan (09/10/2024 2:30 PM EST): [...] (dyspnea on exertion) 06/28/2024 Assessment & Plan (03/17/2025 10:46 AM EDT): Most likely related to obesity, PFT showed restrictive disease and she has a normal chest CT. her echocardiogram is within normal limits We discussed about weight reduction, increase exercise and I gave her information for lifestyle modifications Assessment & Plan (09/10/2024 10:36 AM EST): [...] PCP Acquired hypothyroidism 11/01/2022 Assessment & Plan (03/17/2025 10:47 AM EDT): TSH has been at goal, check TSH again and adjust medications if necessary Assessment & Plan (09/10/2024 10:04 AM EST): [...] order new labs for guidance of therapy Resolved Problems Problem Noted Date Diagnosed Date Resolved Date Class 1 obesity due to exces s calories without serious comorbidity with body mass index (BMI) of 34.0 to 34.9 in adult 09/10/202406/2025 Assessment & Plan (09/10/2024 10:04 AM EST): Discussed re weight reduction options including exercise, life style modifications, diet and referral to eligibility specialist. Recommended to decrease soda and sugary beverage consumption, increase protein intake with meals (at least 1 portion of protein with each meal) to assist with satiety, increase dietary fiber Recommended at least 150 min/week of moderate intensity exercise. Encounters Date Type Department Care Team Description 05/22/2025 Results Follow-Up [facility] [address] [place] [phone] Clau Blankenship NP Vascular US lower extremity venous duplex bilateral 05/09/2025 2:40 PM EDT Office Visit [facility] [address] [place] [phone] Clau Blankenship NP Bilateral lower extremity edema (Primary Dx); Exertional dyspnea 05/09/2025 Travel 04/10/[address] [address] Jocy Joel MD June03/17/2025 10:30 AM EDT Office Visit [address] [address] Jocy Joel MD VEGA (dyspnea on exertion) (Primary Dx); Class 2 severe obesity due to excess calories with serious comorbidity and body mass index (BMI) of 36.0 to 36.9 in adult ([facility]); Elevated blood pressure reading; Acquired hypothyroidism; Restrictive lung disease; Dietary counseling; Exercise counseling; 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 ) from Last 3 Months Immunizations Immunization Administration Dates Next Due Tdap 11/15/2019 Social [...] Answer Date Recorded Patient Health Questionnaire-9 Score 5 03/17/2025 Patient Health Questionnaire-9 Score 5 03/17/2025 Last PHQ-9: Questionnaire Data Not on file 0 03/17/2025 Housing Stability Answer Date Recorded What is your housing situation today? I have cheikh gaines 03/10/[address] you li ve. Do you have problems with any of the following? None of the above 03/10/2025 Food Insecurity Answer Date Recorded Within the past 12 months, y ou worried that your food would run out before you got money to buy more: Never True 03/10/2025 Within the past 12 months,th e food you bought just didn't last and you didn't have enough money to get more: Never True 11/2024 Transportation Answer Date Recorded In the past 12 months, has l ack of transportation kept you from medical appts, meetings, work or from getting things needed for daily living? No 06/28/2024 Utilities Answer Date Recorded In the past 12 months, has t he electric, gas, oil or water company threatened to shut off services in your home? No 03/10/2025 Depression Answer Date Recorded Patient Health Questionnaire-2 Score 2 03/17/2025 Internet Access Answer Date Recorded Internet Access Q1 Yes 03/10/2025 Internet Access Q2 Not on file 03/10/2025 Comments No Sex and Gender Information Value Date Recorded Sex Assigned at Female 08/08/2022 10:36 AM EDT Legal Sex Female 10:36 AM EDT Gender Identity Female 08/08/2022 10:36 AM EDT Sexual Orientation Straight 08/08/2022 10 :36 AM EDT Last Filed Vital Signs Vital Sign Reading Time Taken Comments Blood Pressure 136/84 05/09/2025 2:34 PM EDT Pulse 84 05/09/2025 2:34 PM EDT Temperature 36.7 C (98.1 F) 05/09/2025 2:34 PM EDT Respiratory Rate 16 05/09/2025 2:34 PM EDT Oxygen Saturation 98% 05/09/2025 2:34 PM EDT Inhaled Oxygen Concentration - - Weight 84.6 kg (186 lb 9.6 oz) 05/09/2025 2:34 P M EDT Height 149.9 cm (4' 11 ) 05/09/2025 2:34 PM EDT Body Mass Index 37.69 05/09/2025 2:34 PM EDT Plan of Treatment Upcoming Encounters Date Type Department Care Team (Late st Contact Info) Description 06/27/2025 9:45 AM EDT Office Visit [facility] [address] [place] [phone] Jocy Joel MD [address] [place] [address] 07/10/2025 9:00 AM EDT Office Visit [facility] [address] [place] [address] Pao Roach, OD [address] [place] [address] 07/18/2025 9:45 AM EDT Office Visit [facility] [address] [place] [address] Aleisha Yanez MD [address] [place] [address] Health Maintenance Due Date Last Done Comments CT Colonography 1979 Colonoscopy 1979 Colorectal Cancer Screening 1979 FIT DNA/Cologuard 1979 FIT 1979 FOBT 1979 Sigmoidoscopy 1979 Alcohol/Substance Use Screening 1991 Family Planning (PISQ) 1994 Hepatitis B Vaccines (1 of 3 - 19+ 3-dose series) 1998 COVID-19 Vaccine ( - season) 2024 Influenza Vaccine (#1) 2025 Cervical Cancer Screening 12/14/2025 HPV/Cotest 12/14/2025 12/14/2020, 12/14/2020 Pap Smear 12/14/2025 12/14/2020 Mammogram 02/07/2026 02/07/2025, 04/0 01/2024, 01/04/2023, Additional history exists SDOH Screening 03/10/2026 03/10/2025 Depression Screening 03/17/2026 03/17/2025, 03/17/20 25 Disability Screening 03/17/2026 03/17/2025 Tobacco Screening 05/22/2026 05/22/2025 Zoster Vaccines (1 of 2) 2029 Lipid [...] patient's age to complete this topic Meningococcal B Vaccine Aged Out No l onger eligible based on patient's age to complete this topic Meningococcal Vaccine Aged Out No alan atiya eligible based on patient's age to complete this topic Pneumococcal Vaccine: Pediatrics (0 to 5 Years) and At-Risk Patients (6 to 49) Years Aged Out No longer eligible based on patient's age to complete this topic RSV under 20 months Aged Out No longe r eligible based on patient's age to complete this topic Rotavirus Vaccines Aged Out No longer eligible based on patient's age to complete this topic Procedures Procedure Name Priority Date/Time Associated Diagnosis Comments VASC US LOWER EXTREMITY VENOUS DUPLEX BILATERAL Routine 05/09/2025 4:23 PM EDT Bilateral lower extremity edema B TYPE NATRIURETIC PEPTIDE (BNP) Routine 03/17/2025 10:53 AM EDT VEGA (dyspnea on exertion) CBC WITH AUTO DIFFERENTIAL Routine 03/17/2025 10:53 AM EDT VEGA (dyspnea on exertion) TSH W/REFLEX TO FT4 Routine 03/17/2025 1 0:53 AM EDT VEGA (dyspnea on exertion) BI MAMMOGRAM SCREENING TOMOSYNTHESIS BILATERAL Routine 02/07/2025 1:25 PM EDT HEPATITIS PANEL, GENERAL Routine 07/03/2024 9:47 AM EDT Screen for STD (sexually transmitted disease) HIV 1/2 ANTIGEN/ANTIBODY, FOURTH GENERATION W/RFL Routine 07/03/2024 9:47 AM EDT Screen for STD (sexually transmitted disease) LIPID PANEL WITH REFLEX TO DIRECT LDL Routine 07/03/2024 9:47 AM EDT Acquired hypothyroidism Depression, unspecified depression type VEGA (dyspnea on exertion) ZZZ HISTORICAL HPV E6/E7 RFLX RHONA 16 18/45 Routine 12/14/2020 9:59 AM EST HM PAP/HPV Routine 12/14/2020 from Last 3 Months or Most Recently Relevant to Health Maintenance Results * Vascular US lower extremity venous duplex bilateral (05/09/2025 4:23 PM EDT) 05/09/2025 4:23 PM EDT Narrative [facility] - 05/09/2025 4:45 PM EDT [address] [address] Ultrasound Report Signed Patient: Magalis Moura MR#: [id number] : 1980 Acct:[id number] Age/Sex: 45 / F ADM Date: 05/09/25 Loc: HO.US Attending Dr: Clau Blankenship Ordering Physician: Calu Blankenship Date of Service: 05/09/25 Procedure(s): US venous duplex LE BI Accession Number(s): [id number] cc: Clau Blankenship EXAMINATION: US TRIPLEX LOWER EXTREMITY, BILATERAL CLINICAL INFORMATION: Lower extremity edema. COMPARISON: None available. TECHNIQUE: Color-flow triplex imaging with spectral analysis and compression Doppler were performed on the bilateral lower extremities. FINDINGS: Respiratory variation, normal compression and augmented flow are noted throughout the bilateral lower extremities. The visualized common femoral vein, superficial femoral vein, profunda femoral vein, popliteal vein and midcalf peroneal and posterior tibial venous segments show no evidence of deep venous thrombosis bilaterally. There is no Manning's cyst. US/US venous duplex LE BI IMPRESSION: No evidence of deep venous thrombosis involving the bilateral lower extremities. Electronically signed by: Hamzah Thomas MD 05/09/2025 04:42 PM EDT Dictated By: Hmazah Thomas MD Signed By: <Electronically signed by Hamzah Thomas MD in OV> 05/09/25 1642 DD/ 1623 TD/TT: 05/09/25 1635 Knot Picker Cloth: Procedure Note Donotuseinterpreter, Image - 05/09/[address] [address] Ultrasound Report Signed Patient: Magalis MouraMR#: [id number] : 1980Acct:[id number] Age/Sex: 45 / FADM Date: 05/09/25 Loc: HO.US Attending Dr: Clau Blankenship Ordering Physician: Clau Blankenship Date of Service: 05/09/25 Procedure(s): US venous duplex LE BI Accession Number(s): [id number] cc: Clau Blankenship EXAMINATION: US TRIPLEX LOWER EXTREMITY, BILATERAL CLINICAL INFORMATION: Lower extremity edema. COMPARISON: None available. TECHNIQUE: Color-flow triplex imaging with spectral analysis and compression Doppler were performed on the bilateral lower extremities. FINDINGS: Respiratory variation, normal compression and augmented flow are noted throughout the bilateral lower extremities. The visualized common femoral vein, superficial femoral vein, profunda femoral vein, popliteal vein and midcalf peroneal and posterior tibial venous segments show no evidence of deep venous thrombosis bilaterally. There is no Manning's cyst. US/US venous duplex LE BI IMPRESSION: No evidence of deep venous thrombosis involving the bilateral lower extremities. Electronically signed by: Hamzah Thomas MD 05/09/2025 04:42 PM EDT RP Dictated By: Hamzah Thomas MD Signed By: <Electronically signed by Hamzah Thomas MD in OV> 05/09/25 1642 DD/ 1623 TD/TT: 05/09/25 1635 Knot Picker Cloth: Clau Blankenship ABSTRACT WRITER CV VASCULAR PROCEDURES Final Re sult Performing Organization Address City/[facility]/ZIP Co de Phone Number [facility] [address] [place] [phone] * TSH with Reflex to Free T4 (03/17/2025 10:53 AM EDT) TSH reflex Free T4 1.79 0.32 - 4.0 uIU/mL [facility] Blood 03/17/2025 10:5 3 AM EDT 03/17/2025 1:19 PM EDT Jocy Joel MD LAB BLOOD ORDERABLES Fin al Result Performing Organization Address [facility]/ZIP Co de Phone Number [facility] [address] [place] [phone] * (ABNORMAL) CBC auto differential (03/17/2025 10:53 AM EDT) White Blood Count 6.3 4.8 - 10.8 X10*3/uL [facility] Red Blood Count 4.42 4.20 - 5.50 X10*6/uL [facility] Hemoglobin 12.8 12.0 - 16.0 g/dl [facility] Hematocrit 39.9 37.0 - 47.0 % [facility] Mean Corpuscular Volume 90.3 80.0 - 98.0 fL [facility] Mean Corpuscular Hemoglobin 29.0 27.0 - 33.0 pg [facility] Mean Corpuscular HGB Conc 32.1 31.0 - 35.0 g/dl [facility] Red Cell Distribution Width 12.4 11.0 - 16.0 % [facility] Platelet Count 268 160 - 400 X10*3/uL [facility] Mean Platelet Volume 10.8 9.4 - 12.3 fL [facility] Neutrophils Percent Auto 50.0 45 - 73 % [facility] Imm Gran Pct Auto 0.6(H) 0.0 - 0.4 % [facility] Lymphocytes Percent Auto 39.0 20 - 40 % [facility] Monocytes Percent Auto 7.6 2 - 11 % [facility] Eosinophils Percent Auto 2.2 0 - 4 % [facility] Basophils Percent Auto 0.6 0 - 2 % [facility] NRBC Pct Auto 0.0 0.0 - 0.2 /100WBC [facility] Neutrophils Absolute Auto 3.1 2.0 - 8.3 x10*3/uL [facility] Imm Gran Abs Auto 0.04(H) 0.00 - 0.03 X10*3/uL [facility] Lymphocytes Absolute Auto 2.5 1.2 - 4.9 X10*3/uL [facility] Monocytes Absolute Auto 0.5 0.1 - 1.2 X10*3/uL [facility] Eosinophils Absolute Auto 0.1 0.0 - 0.4 X10*3/uL [facility] Basophils Absolute Auto 0.0 0.0 - 0.2 X10*3/uL [facility] NRBC Abs Auto 0.000 0.0 - 0.012 X10*3/uL [facility] Blood Venous blood specimen / Unknown 03/17/2025 10:53 AM EDT 03/17/2025 1:04 PM EDT us Jocy Joel MD LAB BLOOD ORDERABLES Fin al Result Performing Organization Address City/[facility]/ZIP Co de Phone Number [facility] [address] [place] [address] [phone] * B Type Natriuretic Peptide (BNP) (03/17/2025 10:53 AM EDT) B Type Natriuretic Peptide <10 <100 pg/mL [facility] Blood Venous blood specimen / Unknown 03/17/2025 10:53 AM EDT 03/17/2025 1:03 PM EDT Jocy Joel MD LAB BLOOD ORDERABLES Fin al Result Performing Organization Address [facility] Co de Phone Number [facility] [address] [place] [phone] * BI Mammogram Screening Tomosynthesis Bilateral (02/07/2025 1:25 PM EDT) Anatomical Region Laterality Modality Breast Bilateral Mammography 02/07/2025 1:25 PM EDT Narrative 02/15/2025 9:03 AM EDT [facility] [address] [place], [place] [phone] Mammography Report Signed Patient: Magalis Moura MR#: [id number] : 1980 Acct:[id number] Age/Sex: 44 / F ADM Date: 02/07/25 Loc: HO.MAMMO Attending Dr: Dexter Saldivar MD Ordering Physician: Dexter Ta MD Res ults: 2Benign Findings Date of Service: 02/07/25 Follow Up: 1 Year From Orig inal Mammogram Procedure(s): MM tomosynthesis screening BI Accession Number(s): [id number] cc: Dexter Ta MD; Jocy Joel MD EXAMINATION: MM SCREENING DIGITAL BREAST TOMOSYNTHESIS, BILATERAL CLINICAL INFORMATION: Screening. Asymptomatic. COMPARISON: Mammography: Comparison is made with available priors TECHNIQUE: Digital breast mammography with tomosynthesis is performed in both the craniocaudal and mediolateral oblique views along with computer-aided detection (CAD). FINDINGS: The breasts are heterogeneously dense, which may obscure small masses (ACR BI-RADS breast composition Category c). Bilateral reduction mammoplasty. There are no significant masses, abnormal calcifications, or other abnormalities. MM/MM tomosynthesis screening BI IMPRESSION: No mammographic evidence of malignancy. ASSESSMENT: BI-RADS BI-RADS 2 - Benign Findings RECOMMENDATION: Routine annual mammography screening. 1 year F/U This examination should not preclude the clinical evaluation of a suspicious palpable abnormality. This patient's information was entered into a reminder system with a target due date for their next mammogram. Electronically signed by: Theodora Biggs DO 02/15/2025 09:00 AM EDT Dictated By: Theodora Biggs DO Signed By: <Electronically signed by Theodora Biggs DO in OV> 02/15/25 0900 DD/ 1325 TD/TT: 02/07/25 1344 Knot Picker Cloth: Procedure Note Donotuseinterpreter, Image - 02/15/2025 Jose Luis [facility] [address] [place], [place] [phone] Mammography Report Signed Patient: Magalis MouraMR#: [id number] : 1980Acct:[id number] Age/Sex: 44 / FADM Date: 02/07/25 Loc: HO.MAMMO Attending Dr: Dexter Saldivar MD Ordering Physician: Dexter Ta ults: 2Benign Findings Date of Service: 02/07/25Follow Up: 1 Year From Orig inal Mammogram Procedure(s): MM tomosynthesis screening BI Accession Number(s): [id number] cc: Dexter Ta MD; Jocy Joel MD EXAMINATION: MM SCREENING DIGITAL BREAST TOMOSYNTHESIS, BILATERAL CLINICAL INFORMATION: Screening. Asymptomatic. COMPARISON: Mammography: Comparison is made with available priors TECHNIQUE: Digital breast mammography with tomosynthesis is performed in both the craniocaudal and mediolateral oblique views along with computer-aided detection (CAD). FINDINGS: The breasts are heterogeneously dense, which may obscure small masses (ACR BI-RADS breast composition Category c). Bilateral reduction mammoplasty. There are no significant masses, abnormal calcifications, or other abnormalities. MM/MM tomosynthesis screening BI IMPRESSION: No mammographic evidence of malignancy. ASSESSMENT: BI-RADS BI-RADS 2 - Benign Findings RECOMMENDATION: Routine annual mammography screening. 1 year F/U This examination should not preclude the clinical evaluation of a suspicious palpable abnormality. This patient's information was entered into a reminder system with a target due date for their next mammogram. Electronically signed by: Theodora Biggs DO 02/15/2025 09:00 AM EDT Dictated By: Theodora Biggs DO Signed By: <Electronically signed by Theodora Biggs DO in OV> 02/15/25 0900 DD/ 1325 TD/TT: 02/07/25 1344 Knot Picker Cloth: us Dexter Saldivar MD IMG BI PROCEDURES Final Result * Lipid Panel with Reflex to Direct LDL (07/03/2024 9:47 AM EDT) Triglycerides 43 <150 mg/dL [facility] Comment:Desirable Triglyceri de: less than 150 mg/dLBorderline High Triglyceride 150-199 mg/dLHigh Triglyceride: 200-499 mg/dLVery High Triglyceride: greater than or equal to 5OO mg/dL Cholesterol 126 <200 mg/dL [facility] Comment:Desirable Cholestero l: less than 200 mg/dLBorderline High Cholesterol: 200-239 mg/dLHigh Cholesterol: greater than 239 mg/dL LDL Cholesterol Calculated 66 <100 mg/dL [facility] Comment:Desirable LDL: less than 100 mg/dLNear Optimal/Above Optimal LDL: 110- 129 mg/dLBorderline High LDL: 130-159 mg/dLHigh LDL: 160-189 mg/dLVery High LDL: greater than or equal to 190 mg/dL HDL Cholesterol 52 >40 mg/dL [facility] Comment:Desirable HDL: great er than 40 mg/dL Note: This HDL assay may give artificially low results in patients with liver disease. Blood 07/03/2024 9:47 AM EDT 07/03/2024 11:09 AM EDT us Jocy Joel MD LAB BLOOD ORDERABLES Fin al Result Performing Organization Address [facility] Co de Phone Number [facility] [address] [place] [phone] * Hepatitis Panel, General (07/03/2024 9:47 AM EDT) Hepatitis A IgM Nonreactive Nonreactive [facility] Comment:IgM antibodies to HUDSON V not detected; does not exclude earlyacute or recovered HAV infection. ~Hepatitis B Surface Antibody NONREACTIVE Nonreactive [facility] Comment:Nonreactive: < 8.00 mIU/mL Hepatitis B Core Antibody Nonreactive Nonreactive [facility] Hepatitis C Antibody Nonreactive Nonreactive [facility] Comment:Antibodies to HCV no t detected; does not exclude early acuteHCV infection. Hepatitis B Surface Ag Negative Negative [facility] Blood 07/03/2024 9:47 AM EDT 07/03/2024 11:13 AM EDT Jocy Joel MD LAB BLOOD ORDERABLES Fin al Result Performing Organization Address [facility] Co de Phone Number [facility] [address] [place] [phone] * HIV-1/2 Antigen and Antibodies, Fourth Generation, with Reflexes (07/03/2024 9:47 AM EDT) Pathologist [facility] HIV AB/AG Nonreactive Nonreactive [facility] Comment:HIV-1 p24 Ag and/or HIV-1/HIV-2 Ab not detected.A test result that is nonreactive does not exclude thepossibility of exposure to or infection with HIV-1 and/orHIV-2. Nonreactive results in this assay for individualswith prior exposure to HIV-1 and/or HIV-2 may be due toantigen and antibody levels that are below the limit ofdetection of this assay.The Design A HIV Ag/Ab Combo assay result andsupplemental assay results should be interpreted inconjunction with the patient's clinical presentation,history and other laboratory results. If the results areinconsistent with clinical evidence, additional testing issuggested to confirm the result. Blood Venous blood specimen / Unknown 07/03/2024 9:47 AM EDT 07/03/2024 11:13 AM EDT us Jocy Joel MD LAB BLOOD ORDERABLES Fin al Result [facility] [address] [place] [phone] * HPV E6/E7 RFLX RHONA 16 18/45 (12/14/2020 9:59 AM EST) Pathologist [facility] HPV 16 RNA [facility]NP [facility] HPV 18/45 RNA TNP [facility] HPV E6 E7 ADD TNP [facility] HPV mRNA E6/E7 rflx Not Detected Not Detected [facility] Comment: Methodology: [employer] Monitoring Technician-Mediated Amplification This assay detects E6/E7 viral messenger RNA (mRNA) from 14 high-risk HPV types (16,18,31,33,35,39,45,51,52,56,58,59,66,68). The analytical performance characteristics of this assay have been determined by [employer]. The modifications have not been cleared or approved by the FDA. This assay has been validated pursuant to the CLIA regulations and is used for clinical purposes. For additional information, please refer to http://education.[employer]Trip.[employer] Logic/faq/IJT745y7 (This link if provided for information/ educational purposes only.) THIS TEST WAS PERFORMED AT: [email or web address] [address] [place] [address] FLOOR,[place] [phone] VERNELL MARIE MD 12/14/2020 9:59 AM EST us Tricia Small HISTORICAL/NON ORDERABLE LABS Fi nal Result [facility] Formerly [facility] [address] * Pap Smear (12/14/2020) Historical Provider HEALTH MAINTENANCE Final Result from Last 3 Months or Most Recently Relevant to Health Maintenance [place] [place] [address] OPEN ACCESS Care Teams Yard Motor Operator Relationship Specialty Start Date End Date Jocy Joel MD [address] [place] [phone] PCP - General Internal Medicine 04/23/24
[2025-06-02 22:22] VITALS: BP 140/52; PULSE 73; RESP 16; TEMP 36.4; O2SAT 99
--- NOTE | 2025-06-03 00:47 | ED_ITS ---
HPI - General Adult General Chief complaint: General Medical Stated complaint: right side face numbness; vomiting Time Seen by Provider: 06/03/25 00:36 Source: patient Mode of arrival: ambulatory Limitations: no limitations History of Present Illness ED Provider: Dr. Jazlyn William HPI narrative: Patient comes to the emergency room complaining of headache and left-sided facial numbness. Patient states that it started earlier today a proximally 7+ hours ago. At this time, it resolved. Patient also complaining of photophobia and nausea. Patient denies any motor dysfunction. Patient denies history of migraines. However, patient does have history of right-sided facial numbness tingling which happened approximately 4 years ago. Patient states that at this time, she no longer has a headache and she no longer has any numbness tingling in the face. Related Data Home Medications ?Medication ?Instructions ?Recorded ?Confirmed diclofenac potassium 50 mg tablet 50 mg PO BID 1 11/14/22 fluticasone propionate 50 1 - 2 spray intranasal DAILY PRN 11/16/20 11/14/22 mcg/actuation nasal Runny Nose spray,suspension levothyroxine 50 mcg capsule 50 mcg PO DAILY 11/16/20 11/14/22 montelukast 10 mg tablet 10 mg PO BEDTIME 11/16/20 Previous Rx's ?Medication ?Instructions ?Recorded sumatriptan succinate 50 mg tablet See Rx Instructions PO .COMPLEX 06/03/25 #10 tabs Allergies Allergy/AdvReac Type Severity Reaction Status Date / Time Cortisone Allergy Mild Hives Uncoded 06/02/25 21:20 Review of Systems 2 Review of Systems: Constitutional : No Weight loss, No Fever, No Chills, No Night Sweats, No Fatigue, No Malaise ENT/Mouth : No Hearing loss, No Ear Pain, No Nasal Congestion, No Sinus Pain, No Hoarseness, No sore throat, No Rhinorrhea, No Swallowing Difficulty Eyes: No Eye Pain, No Swelling, No Redness, No Foreign Body, No Discharge, No Vision Changes Cardiovascular : No Chest Pain, No SOB, No Dyspnea on Exertion, No Orthopnea, No Edema, No Palpitations Respiratory : No Cough, No Sputum, No Wheezing, No Smoke Exposure, No Dyspnea Gastrointestinal : No Nausea, No Vomiting, No Diarrhea, No Constipation, No abdominal Pain, No Hematochezia, No Melena Genitourinary : no irregular bleeding, No Dysuria, No Urinary Frequency, No Hematuria, No Urinary Incontinence, No Urgency, No Flank Pain, No Urinary Flow Changes, No Hesitancy Musculoskeletal : No joint pain, No Myalgias, No Joint Swelling Skin : No Skin Lesions, No rash Neuro : No Weakness, No Numbness, complaining of left-sided facial tingling, No Loss of Consciousness, No Dizziness, complaining of Headache Psych : No Anxiety/Panic, No Depression, No SI/HI/AH/VH, No Social Issues, Heme/Lymph: No Bruising, No Bleeding,No Lymphadenopathy Endocrine : No Polyuria, No Polydipsia, No Temperature Intolerance [facility] Past Medical History Medical History History of painful menstruation No known health problems Ovarian cyst Hypothyroidism Surgical History H/O abdominoplasty History of bilateral breast reduction surgery Family History Family History Father Hypertension Mother CVD (cardiovascular disease) Sister Asthma Thyroid disease Maternal Uncle Diabetes Social History Social History (System 12/26/24 @ 15:33 by Waldo Montejo) Household Members: Spouse Housing: Apartment Alcohol intake: current Alcohol intake frequency: holidays/special occasions only Patient Tobacco Use Status: Never used Tobacco Smoked in Last 30 Days: No Use of substances other than those prescribed or required for medical reasons: No Advance Directives: No Advance Directives Information Provided: No Do you have a plan to hurt others: No Plan Patient : No Current occupational status: employed Current occupation: rt hand / hair specialist Sexual orientation: Straight/Heterosexual Gender identity: Female Physical Exam ED Exam Exam: Appearance: Alert. Oriented X3. No acute distress. Well-appearing Eyes: Pupils equal, round and reactive to light. ENT: Pharynx normal. Neck: Normal inspection. Neck supple. No lymph nodes noted. No crepitus CVS: Normal heart rate and rhythm. Pulses normal. Normal S1 and S2 Respiratory: No respiratory distress. Breath sounds normal. No Wheezing. No rales Abdomen: Soft and nontender. No rigidity. No distention. Skin: Skin warm and dry. Normal skin color. Normal skin turgor. Extremities: No lower extremity edema. No Lacerations. No Rash Neuro: Oriented X 3. No motor deficit. No sensory deficit. Moving all extremities. No slurred speech. CN 2 through 12 grossly intact Psych: calm, cooperative, normal affect Vital Signs: Vital Signs - 24 hr 06/02/25 21:11 06/02/25 22:22 06/03/25 00:58 Temperature 97.5 F 97.5 F Pulse Rate 84 73 68 Respiratory Rate 19 16 Blood Pressure 145/83 H 140/52 H 137/85 Pulse Oximetry 98 99 Oxygen Delivery Method Room Air Room Air 06/03/25 00:59 06/03/25 00:59 Temperature Pulse Rate 72 74 Respiratory Rate Blood Pressure 142/91 H 124/85 Pulse Oximetry Oxygen Delivery Method BMI result Body Mass Index 35.3 NIH Stroke Scale Internal: Initial- Upon Arrival Level of Consciousness: Alert Level of Consciousness Questions: Answers both questions correctly Level of Consciousness Commands: Performs both tasks correctly Best Gaze: Normal Visual: No visual loss Facial Palsy: Normal Motor Arm (Right): No drift Motor Arm (Left): No drift Motor Leg (Right): No drift Motor Leg (Left): No drift Limb Ataxia: Absent Sensory: Normal Best Language: No aphasia Dysarthia: Normal Extinction and Inattention: No abnormality Score: 0 Medical Decision Making Medical Decision Making MDM Narrative: Patient came in with left-sided facial numbness accompanied by headache. Then, with the headache resolved, patient no longer had facial numbness/tingling. Also, the photophobia improved. I discussed with the patient that she is likely experiencing migraines. Patient has not been diagnosed yet. Patient's NIH score is 0, patient does not have any numbness tingling, no muscle weakness. I reviewed patient's medical records from 2020, patient had similar symptoms, possible Moore's palsy versus migraine headache. Today, patient has no neurological deficits at all. Patient had an MRI done which was negative for CVA Orthostatic vitals negative No chest pain or shortness of breath. I discussed with the patient the above-mentioned, patient agreeable with plan, she will follow-up with her PCP, and if needed patient can be referred to Neurology. Differential Diagnosis Differential Diagnoses: The differential diagnosis associated with the presentation includes (Migraine headache, tension headache, TIA) Admission/Observation Consideration of admission/observation: Escalation of care including admission/observation considered (Given patient's presentation, longer observation was considered) Lab Data MDM Lab Attestation statement: I reviewed the patient's lab results. 06/02/25 21:39 06/02/25 21:39 Labs: Lab Results 06/02/25 Range/Units 21:39 WBC 8.4 (4.8-10.8) X10*3/uL RBC 3.91 L (4.20-5.50) X10*6/uL Hgb 11.5 L (12.0-16.0) g/dl Hct 34.7 L (37.0-47.0) % MCV 88.7 (80.0-98.0) fL MCH 29.4 (27.0-33.0) pg MCHC 33.1 (31.0-35.0) g/dl RDW 12.2 (11.0-16.0) % Plt Count 249 (160-400) X10*3/uL MPV 10.1 (9.4-12.3) fL Immature Gran % (Auto) 0.1 (0.0-0.4) % Neut % (Auto) 50.0 (45-73) % Lymph % (Auto) 40.1 H (20-40) % [place] % (Auto) 6.9 (2-11) % Eos % (Auto) 2.3 (0-4) % Baso % (Auto) 0.6 (0-2) % Lymph # (Auto) 3.4 (1.2-4.9) X10*3/uL [place] # (Auto) 0.6 (0.1-1.2) X10*3/uL Eos # (Auto) 0.2 (0.0-0.4) X10*3/uL Baso # (Auto) 0.1 (0.0-0.2) X10*3/uL Abs Immat Gran (auto) 0.01 (0.00-0.03) X10*3/uL Absolute Neuts (auto) 4.2 (2.0-8.3) x10*3/uL Absolute Nucleated RBC 0.000 (0.0-0.012) X10*3/uL Nucleated RBC % (auto) 0.0 (0.0-0.2) /100WBC Sodium 141 (135-145) mmol/L Potassium 3.6 (3.3-5.1) mmol/L Chloride 105 (96-108) mmol/L Carbon Dioxide 27 (22-29) mmol/L Anion Gap 14 (12-20) BUN 17 H (9-16) mg/dL Creatinine 0.74 (0.5-1.4) mg/dL Estim Creat Clear Calc 90.2 Estimated GFR > 60 Random Glucose 79 (60-115) mg/dL Calcium 9.5 (8.4-10.2) mg/dL External Record Review External record reviewed: Inpatient record Tests considered The following testing was considered but not selected: They considered ordering a CTA/CT. However, patient has no neurological deficits a , an aspirin reviewing patient's history, previous labs and that is hospitalizations, it is likely that patient has neurological symptoms secondary to migraine headaches, which was previously suspected by Neurology back in 2020 Critical Care Time Critical Care Time Critical Care Time: Yes Total Critical Care Time: 35 Attestation: I have personally provided critical care time. Time includes review of lab data, radiology results, discussion with consultants, and monitoring for potential decompensation. Intervention performed as documented. Discharge Plan Discharge Clinical Impression: Migraine equivalent Patient Disposition: Home, Self-Care Instructions: Migraine Headache (ED) Additional Instructions: Please follow-up with your primary care physician tomorrow. If you have any worsening or new symptoms, please return to the emergency room or call 911 Prescriptions: New sumatriptan succinate 50 mg tablet See Rx Instructions .ROUTE .COMPLEX Qty: 10 0RF Rx Instructions: take 1 tab at onset of headache; if no relief may repeat 1 tab after at least 2 hrs; max = 4 tabs/24 hr No Action montelukast 10 mg tablet 10 mg PO BEDTIME fluticasone propionate 50 mcg/actuation spray,suspension 1 - 2 spray intranasal DAILY PRN (Reason: Runny Nose) diclofenac potassium 50 mg tablet 50 mg PO BID levothyroxine 50 mcg capsule 50 mcg PO DAILY Print Language: [place]
[2025-06-03 00:58] VITALS: BP 137/85; PULSE 68
[2025-06-03 00:59] VITALS: BP 124/85; BP 142/91; PULSE 72; PULSE 74
[2025-06-03 01:34] VITALS: BP 124/85; PULSE 74; RESP 18; TEMP 36.7; O2SAT 96
== END 2025-06-03 01:39 | disposition home or self-care (01) ==
PROVIDERS: Emergency Provider Emergency Medicine; PCP Internal Medicine
DX: G43.909 Migraine, unspecified, not intractable, without status migrainosus (principal); R20.0 Anesthesia of skin; H53.143 Visual discomfort, bilateral; R06.02 Shortness of breath; R11.2 Nausea with vomiting, unspecified; Z79.899 Other long term (current) drug therapy
CPT/HCPCS: 36415; 71045; 80048; 85025; 99283; 99284

== ENCOUNTER 2025-07-01 10:40 | Outpatient (REF) | payer OTHER, SELFPAY ==
--- OUTSIDE RECORDS SUMMARY | 2025-06-27 09:45 | XMS_ITS | Encounter Summary ---
Author Organization [employer] Address [address] [place] [address] [address] [place] [address] Care Team Providers Care Supervisor Nuclear Medicine Name Role Phone Jocy Joel MD Primary Care Provider + Encounter Details Date Type Department Care Team (Late st Contact Info) Description 06/27/2025 9:45 AM EDT Telemedicine [facility] MEDICINE [address], [place] [phone] Jocy Joel MD [address] [place], [place] [phone] Class 2 severe obesity due to excess calories with serious comorbidity and body mass index (BMI) of 36.0 to 36.9 in adult (CMS/HCC) (Primary Dx); Elevated blood pressure reading; Migraine without aura and without status migrainosus, not intractable; Ankle edema Social History Tobacco Use Types Packs/Day Years Used Date Smoking Tobacco: Never Smokeless Tobacco: Never Alcohol Use Standard Drinks/Week Comments Yes 12 (1 standard drink = 0.6 oz pu re alcohol) beer Alcohol Answer Date Recorded How often do you have a drink containing alcohol ? 3 06/27/2025 How many drinks containing a lcohol do you have on a typical day when you are drinking? 4 06/27/2025 How often do you have six or more drinks on one occasion? 3 06/27/2025 Depression Answer Date Recorded Patient Health Questionnaire-9 [...] AM EDT documented as of this encounter Progress Notes * Jocy Joel MD - 06/27/2025 9:45 AM EDT EsdSUBJECTIVE: Magalis Fox is a 45 y.o. year old female who presents for follow up Bp and labs . Denies recent illness, injury, or hospitalization. Labs on 03/17/2025 showed normal BNP, TSH and CBC Her BP at home is reportedly normal, she doesn't have Acute Concerns: She was seen at [facility] on 06/02/2025 due to right-sided facial numbness and vomiting. Her BP was mildly elevated (142/91). Her cbc showed mild anemia. She was dx with complex migraine and rx sumatriptan. She is also concerned regarding bilateral ankle edema, which is recurrent and mostly when patient is out for few hours. She would like to see orthopedics, she denies any recent falls or accidents Social History Social History Narrative Not on file Problem List[1] Family History[2] Review of Systems Constitutional: Positive for unexpected weight change. Negative for chills, fatigue and fever. HENT: Negative for congestion, ear pain, nosebleeds, rhinorrhea, sinus pressure, sore throat and trouble swallowing. Eyes: Negative for pain and discharge. Respiratory: Negative for cough, chest tightness and shortness of breath. Cardiovascular: Positive for leg swelling. Negative for chest pain and palpitations. Gastrointestinal: Negative for abdominal pain, blood in stool, constipation, diarrhea and nausea. Endocrine: Negative for polydipsia and polyuria. Genitourinary: Negative for dysuria, frequency, genital sores, pelvic pain and vaginal discharge. Musculoskeletal: Negative for back pain and neck pain. Skin: Negative for rash. Allergic/Immunologic: Negative for environmental allergies. Neurological: Positive for headaches. Negative for dizziness, seizures, weakness and light-headedness. Hematological: Negative for adenopathy. Psychiatric/Behavioral: Negative for agitation, behavioral problems, self-injury and suicidal ideas. OBJECTIVE: There were no vitals filed for this visit. Physical Exam Problem List Items Addressed This Visit Class 2 severe obesity due to excess calories with serious comorbidity and body mass index (BMI) of36.0 to 36.9 in adult ([facility]) - Primary We had discussed about lifestyle modifications and and potentially start medications once she is seen by dietitian. Unfortunately she has not seen dietitian yet, I gave her the information so she will schedule an appointment and follow-up with me in 3 months, she is a good candidate to start medications. She is also interested in potentially bariatric surgery, given information regarding weight reduction program at [facility] for her to start going to the informative sessions. Elevated blood pressure reading Patient does not have BP readings from home, her most recent BP at ED was high and patient had migraine at the time. Advised patient to check BP at home 3 times per week and follow-up with me in 3 months or earlier if BP is above 140/95 for more than 2 consecutive weeks. Advised regarding weight reduction, low-sodium and calorie intake and increase exercise Migraine without aura and without status migrainosus, not intractable Doing well for the most part with NSAIDs, Rx for Imitrex given to patient to take if symptoms do not resolve within 2 hours, see recent ED visit. We discussed about keeping a symptom diary and watch for triggering events/foods She will check BP as above and follow-up with me in 3 months Relevant Medications SUMAtriptan (Imitrex) 100 MG tablet Ankle edema Unclear if related to OA vs venous insufficiency VS obesity We discussed about weight reduction as above, she will get x-rays and follow-up with me at next visit, we had discussed about elevating legs, lower sodium intake and follow-up with me in 3 months. Will hold off on orthopedics appointment until next visit Relevant Orders XR Ankle 3+ Views Left XR Ankle 3+ Views Right Follow Up: Medications Ordered Prior to Encounter[3] [1] Patient Active Problem List Diagnosis Acquired hypothyroidism Vitamin D deficiency Dizziness, nonspecific Chest tightness Mild alcohol use disorder Depression, unspecified Hair loss Orthopnea Acute bilateral low back pain VEGA (dyspnea on exertion) Neck pain Screen for STD (sexually transmitted disease) Chronic rhinitis Restrictive lung disease Class 2 severe obesity due to excess calories with serious comorbidity and body mass index (BMI) of36.0 to 36.9 in adult ([facility]) Elevated blood pressure reading Migraine without aura and without status migrainosus, not intractable Ankle edema [2] No family history on file. [3] Current Outpatient Medications on File Prior to Visit Medication Sig Dispense Refill albuterol 108 (90 Base) MCG/ACT inhaler Inhale 2 puffs every 4 (four) hours if needed for wheezing.18 g 0 Blood Pressure Monitoring (Blood Pressure Cuff) misc Use daily as prescribed 1 each 0 cholecalciferol (Vitamin D-3) 25 MCG tablet TAKE ONE TABLET DAILY 90 tablet 6 fluticasone (Flonase) 50 MCG/ACT nasal spray INHALE ONE OR TWO SPRAYS IN EACH NOSTRIL DAILY NEEDED 16 g 6 ketotifen (Zaditor) 0.025 % ophthalmic solution PLACE ONE DROP IN THE AFFECTED EYE(S) TWICE DAILY NEEDED FOR ALLERGIES levothyroxine (Synthroid, Levoxyl) 75 MCG tablet Take 1 tablet (75 mcg) by mouth before breakfast. 90 tablet 2 montelukast (Singulair) 10 MG tablet TAKE ONE TABLET AT BEDTIME 90 tablet 3 No current facility-administered medications on file prior to visit. documented in this encounter Miscellaneous Notes * Assessment & Plan Note - Jocy Joel MD - 06/27/2025 4:14 PM EDT Associated Problem(s): Migraine without aura and without status migrainosus, not intractable Doing well for the most part with NSAIDs, Rx for Imitrex given to patient to take if symptoms do not resolve within 2 hours, see recent ED visit. We discussed about keeping a symptom diary and watch for triggering events/foods She will check BP as above and follow-up with me in 3 months * Assessment & Plan Note - Jocy Joel MD - 06/27/2025 4:13 PM EDT Associated Problem(s): Ankle edema Unclear if related to OA vs venous insufficiency VS obesity We discussed about weight reduction as above, she will get x-rays and follow-up with me at next visit, we had discussed about elevating legs, lower sodium intake and follow-up with me in 3 months. Will hold off on orthopedics appointment until next visit * Assessment & Plan Note - Jocy Joel MD - 06/27/2025 4:10 PM EDT Associated Problem(s): Class 2 severe obesity due to excess calories with serious comorbidity and body mass index (BMI) of 36.0 to 36.9 in adult ([facility]) We had discussed about lifestyle modifications and and potentially start medications once she is seen by dietitian. Unfortunately she has not seen dietitian yet, I gave her the information so she will schedule an appointment and follow-up with me in 3 months, she is a good candidate to start medications. She is also interested in potentially bariatric surgery, given information regarding weight reduction program at [facility] for her to start going to the informative sessions. * Assessment & Plan Note - Jocy Joel MD - 06/27/2025 4:09 PM EDT Associated Problem(s): Elevated blood pressure reading Patient does not have BP readings from home, her most recent BP at ED was high and patient had migraine at the time. Advised patient to check BP at home 3 times per week and follow-up with me in 3 months or earlier if BP is above 140/95 for more than 2 consecutive weeks. Advised regarding weight reduction, low-sodium and calorie intake and increase exercise documented in this encounter Plan of Treatment Upcoming Encounters Date Type Department Care Team (Late st Contact Info) Description 07/10/2025 9:00 AM EDT Office Visit [facility] OPTOMETRY [address] [place], [place] [phone] Pao Roach, OD [address] [place] [address] 07/18/2025 9:45 AM EDT Office Visit [facility] MEDICINE [address] [place] [address] Aleisha Yanez MD [address] [place] [address] documented as of this encounter Procedures Procedure Name Priority Date/Time Associated Diagnosis Comments XR ANKLE 3+ VIEWS RIGHT Routine 07/01/2025 11:00 AM EDT Ankle edema XR ANKLE 3+ VIEWS LEFT Routine 07/01/2025 11:00 AM EDT Ankle edema documented in this encounter Results * XR Ankle 3+ Views Right (07/01/2025 11:00 AM EDT) Anatomical Region Laterality Modality Lower Extremities, Ankle Right Radiogr aphic Imaging 07/01/2025 11:0 0 AM EDT Narrative 07/01/2025 11:09 AM EDT [facility] [address] [place] [address] XRay Report Signed Patient: Magalis Moura MR#: [id number] : 1980 Acct:[id number] Age/Sex: 45 / F ADM Date: 07/01/25 Loc: [facility] Attending Dr: Jocy Joel MD Ordering Physician: Jocy Joel MD Date of Service: 07/01/25 Procedure(s): XR ankle RT min 3V Accession Number(s): [id number] cc: Jocy Joel MD Reason for Exam: bl ankle edema/pain EXAMINATION: XR ANKLE, right CLINICAL INFORMATION: bl ankle edema/pain COMPARISON: None available. TECHNIQUE: AP, lateral, and mortise views lower extremity joint, ankle. FINDINGS: Ankle mortise is congruent. There is mild widening of the syndesmosis. Talar dome is intact. There is a small ossification inferior to the medial malleolus. There is a small calcaneal enthesophyte(s). There is an os trigonum XR/XR ankle RT min 3V IMPRESSION: There is decreased overlap of the distal tibia and fibula concerning for a high ankle sprain. There is a small ossification inferior to the medial malleolus could be chronic, but could represent an avulsion fracture. Electronically signed by: Steve Tran MD 07/01/2025 11:06 AM EDT Dictated By: Steve Tran MD Signed By: <Electronically signed by Steve Tran MD in OV> 07/01/25 1106 DD/ 1100 TD/TT: 07/01/25 1100 Smash Hand: Procedure Note Donotuseinterpreter, Image - 07/01/[address] [address] XRay Report Signed Patient: Magalis MouraMR#: [id number] : 1980Acct:[id number] Age/Sex: 45 / FADM Date: 07/01/25 Loc: [facility] Attending Dr: Jocy Joel MD Ordering Physician: Jocy Joel MD Date of Service: 07/01/25 Procedure(s): XR ankle RT min 3V Accession Number(s): [id number] cc: Jocy Joel MD Reason for Exam: bl ankle edema/pain EXAMINATION: XR ANKLE, right CLINICAL INFORMATION: bl ankle edema/pain COMPARISON: None available. TECHNIQUE: AP, lateral, and mortise views lower extremity joint, ankle. FINDINGS: Ankle mortise is congruent. There is mild widening of the syndesmosis. Talar dome is intact. There is a small ossification inferior to the medial malleolus. There is a small calcaneal enthesophyte(s). There is an os trigonum XR/XR ankle RT min 3V IMPRESSION: There is decreased overlap of the distal tibia and fibula concerning for a high ankle sprain. There is a small ossification inferior to the medial malleolus could be chronic, but could represent an avulsion fracture. Electronically signed by: Steve Tran MD 07/01/2025 11:06 AM EDT Dictated By: Steve Tran MD Signed By: <Electronically signed by Steve Tran MD in OV> 07/01/25 1106 DD/ 1100 TD/TT: 07/01/25 1100 Smash Hand: Jocy Joel MD IMG XR PROCEDURES Final Result * XR Ankle 3+ Views Left (07/01/2025 11:00 AM EDT) Anatomical Region Laterality Modality Lower Extremities, Ankle Left Radiogr aphic Imaging 07/01/2025 11:0 0 AM EDT Narrative 07/01/2025 11:11 AM EDT [address] [address] XRay Report Signed Patient: Magalis Moura MR#: [id number] : 1980 Acct:[id number] Age/Sex: 45 / F ADM Date: 07/01/25 Loc: HO.HHCX Attending Dr: Jocy Joel MD Ordering Physician: Jocy Joel MD Date of Service: 07/01/25 Procedure(s): XR ankle LT min 3V Accession Number(s): [id number] cc: Jocy Joel MD Reason for Exam: bl ankle edema/pain EXAMINATION: XR ANKLE, left CLINICAL INFORMATION: bl ankle edema/pain COMPARISON: None available. TECHNIQUE: AP, lateral, and mortise views lower extremity joint, ankle. FINDINGS: Ankle mortise is congruent. There is no widening of the syndesmosis. Talar dome is intact. There is a moderate-sized ossification inferior to medial malleolus. There is a large os trigonum. There are no calcaneal enthesophyte(s). XR/XR ankle LT min 3V IMPRESSION: There is a moderate-sized bony fragment inferior to the medial malleolus that is probably a chronic accessory ossification center and much less likely to represent an acute avulsion. There is a large os trigonum. Correlate for signs symptoms of chronic posterior ankle impingement. Electronically signed by: Steve Tran MD 07/01/2025 11:08 AM EDT Dictated By: Steve Tran MD Signed By: <Electronically signed by Steve Tran MD in OV> 07/01/25 1108 DD/ 1100 TD/TT: 07/01/25 1100 Smash Hand: Procedure Note Donotuseinterpreter, Image - 07/01/2025 [place] [address] XRay Report Signed Patient: Magalis Moura#: [id number] : 1980Acct:[id number] Age/Sex: 45 / FADM Date: 07/01/25 Loc: HO.HHCX Attending Dr: Jocy Joel MD Ordering Physician: Jocy Joel MD Date of Service: 07/01/25 Procedure(s): XR ankle LT min 3V Accession Number(s): [id number] cc: Jocy Joel MD Reason for Exam: bl ankle edema/pain EXAMINATION: XR ANKLE, left CLINICAL INFORMATION: bl ankle edema/pain COMPARISON: None available. TECHNIQUE: AP, lateral, and mortise views lower extremity joint, ankle. FINDINGS: Ankle mortise is congruent. There is no widening of the syndesmosis. Talar dome is intact. There is a moderate-sized ossification inferior to medial malleolus. There is a large os trigonum. There are no calcaneal enthesophyte(s). XR/XR ankle LT min 3V IMPRESSION: There is a moderate-sized bony fragment inferior to the medial malleolus that is probably a chronic accessory ossification center and much less likely to represent an acute avulsion. There is a large os trigonum. Correlate for signs symptoms of chronic posterior ankle impingement. Electronically signed by: Steve Tran MD 07/01/2025 11:08 AM EDT RP Dictated By: Steve Tran MD Signed By: <Electronically signed by Steve Tran MD in OV> 07/01/25 1108 DD/ 1100 TD/TT: 07/01/25 1100 Smash Hand: us Jocy Joel MD IMG XR PROCEDURES Final Result documented in this encounter Visit Diagnoses Diagnosis Class 2 severe obesity due to excess calories with serious comorbidity and body mass index (BMI) of 36.0 to 36.9 in adult ([facility])- Primary Elevated blood pressure reading Elevated blood pressure reading without diagnosis of hypertension Migraine without aura and without status migrainosus, not intractable Ankle edema Edema documented in this encounter Additional Health Concerns Assessment Noted Time PHQ-9 Depression Total Score: 5 03/17/20 25 10:50 AM EDT documented as of this encounter Care Teams Supervisor Nuclear Medicine Relationship Specialty Start Date End Date Jocy Joel MD [address] [place] [id number] PCP - General Internal Medicine 04/23/24 documented as of this encounter
--- NOTE | ~2025-07-01 | XR_ITS ---
EXAMINATION: XR ANKLE, right CLINICAL INFORMATION: bl ankle edema/pain COMPARISON: None available. TECHNIQUE: AP, lateral, and mortise views lower extremity joint, ankle. FINDINGS: Ankle mortise is congruent. There is mild widening of the syndesmosis. Talar dome is intact. There is a small ossification inferior to the medial malleolus. There is a small calcaneal enthesophyte(s). There is an os trigonum XR/XR ankle RT min 3V IMPRESSION: There is decreased overlap of the distal tibia and fibula concerning for a high ankle sprain. There is a small ossification inferior to the medial malleolus could be chronic, but could represent an avulsion fracture. Electronically signed by: Steve Tran MD 07/01/2025 11:06 AM EDT
--- NOTE | ~2025-07-01 | XR_ITS ---
EXAMINATION: XR ANKLE, left CLINICAL INFORMATION: bl ankle edema/pain COMPARISON: None available. TECHNIQUE: AP, lateral, and mortise views lower extremity joint, ankle. FINDINGS: Ankle mortise is congruent. There is no widening of the syndesmosis. Talar dome is intact. There is a moderate-sized ossification inferior to medial malleolus. There is a large os trigonum. There are no calcaneal enthesophyte(s). XR/XR ankle LT min 3V IMPRESSION: There is a moderate-sized bony fragment inferior to the medial malleolus that is probably a chronic accessory ossification center and much less likely to represent an acute avulsion. There is a large os trigonum. Correlate for signs symptoms of chronic posterior ankle impingement. Electronically signed by: Steve Tran MD 07/01/2025 11:08 AM EDT
--- OUTSIDE RECORDS SUMMARY | 2025-07-01 13:08 | XMS_ITS | Encounter Summary ---
Author Organization [employer] Address [address] [place] [address] [address] [place] [address] Care Team Providers Care Poultry Husbandry Worker Name Role Phone Jocy Joel MD Primary Care Provider + Encounter Details Date Type Department Care Team (Latest Contact Info) Description 06/27/2025 Travel Social History Tobacco Use Types Packs/Day [...] Description 07/10/2025 9:00 AM EDT Office Visit [facility] OPTOMETRY [address] [place] [address] Pao Roach, OD [address] [place] [address] 07/18/2025 9:45 AM EDT Office Visit [facility] MEDICINE [address] [place] [address] Aleisha Yanez MD [address] [place] [address] documented as of this encounter Visit Diagnoses Not on filedocumented in this encounter Additional Health Concerns Assessment Noted Time PHQ-9 Depression Total Score: 5 03/17/20 25 10:50 AM EDT documented as of this encounter Care Teams Poultry Husbandry Worker Relationship Specialty Start Date End Date Jocy Joel MD [address] [place] [id number] PCP - General Internal Medicine 04/23/24 documented as of this encounter
--- OUTSIDE RECORDS SUMMARY | 2025-07-01 13:08 | XMS_ITS | Encounter Summary ---
Author Organization [employer] Address [address] [place] [address] [address] [place] [address] Care Team Providers Care Slat Basket Top Maker Name Role Phone Dexter Ta MD Primary Care Prov ider Johnna Hussein NP Primary Care Provider [phone] Jocy Joel MD Primary Care Provider + Encounter Details Date Type Department Care Team (Late st Contact Info) Description 06/30/2023 Orders Only [facility] MEDICINE [address] [place] [address] Provider, MD Macie Social History Tobacco Use [...] Description 07/10/2025 9:00 AM EDT Office Visit [facility] OPTOMETRY [address] [place] [address] Bretmoo Pao, OD [address] [place] [address] 07/18/2025 9:45 AM EDT Office Visit [facility] MEDICINE [address] [place] [address] Aleisha Yanez MD [address] [place] [address] documented as of this encounter Procedures Procedure Name Priority Date/Time Associated Diagnosis Comments HM PAP/HPV Routine 12/14/2020 documented in this encounter Results * Pap Smear (12/14/2020) Historical Provider HEALTH MAINTENANCE Final Result documented in this encounter Visit Diagnoses Not on filedocumented in this encounter Additional Health Concerns Assessment Noted Time PHQ-9 Depression Total Score: 0 03/02/20 23 3:07 PM EDT documented as of this encounter Care Teams Slat Basket Top Maker Relationship Specialty Start Date End Date Dexter Ta MD [address] [place] [id number] PCP - General Internal Medicine 11/15/19 03/25/24 Johnna Hussein NP [address] [place] [address] PCP - General Family Medicine 03/26/24 04/22/24 Jocy Joel MD [address] [place] [address] PCP - General Internal Medicine 04/23/24 documented as of this encounter
--- OUTSIDE RECORDS SUMMARY | 2025-07-01 13:08 | XMS_ITS | Clinical Summary ---
Author Organization [employer] Address [address] [place] [address] 7 [place] [address] Care Team Providers Care Web Portal Developer Name Role Phone Jocy Joel MD Primary [...] daily as prescribed 1 each 5 Active SUMAtriptan (Imitrex) 100 MG tablet Take 1/2 tab -1 tab po q4-6h PRN migraine, max 200mg/d 9 tablet 3 5 Active Active Problems Problem Noted Date Diagnosed Date Migraine without aura and wi thout status migrainosus, not intractable 06/27/2025 Assessment & Plan (06/27/2025 4:14 PM EDT): Doing well for the most part with NSAIDs, Rx for Imitrex given to patient to take if symptoms do not resolve within 2 hours, see recent ED visit. We discussed about keeping a symptom diary and watch for triggering events/foods She will check BP as above and follow-up with me in 3 months Ankle edema 06/27/2025 Assessment & Plan (06/27/2025 4:13 PM EDT): Unclear if related to OA vs venous insufficiency VS obesity We discussed about weight reduction as above, she will get x-rays and follow-up with me at next visit, we had discussed about elevating legs, lower sodium intake and follow-up with me in 3 months. Will hold off on orthopedics appointment until next visit Class 2 severe obesity due t o excess calories with serious comorbidity and body mass index (BMI) of 36.0 to 36.9 in adult 03/17/2025 Assessment & Plan (06/27/2025 4:10 PM EDT): We had discussed about lifestyle modifications and [...] given information regarding weight reduction program at [facility] for her to start going to the informative sessions. Assessment & Plan (03/17/2025 10:49 AM EDT): [...] blood pressure reading 03/17/2025 Assessment & Plan (06/27/2025 4:09 PM EDT): Patient does not have BP readings from [...] low-sodium and calorie intake and increase exercise Assessment & Plan (03/17/2025 10:48 AM EDT): [...] life style modifications, diet and referral to credit specialist. Recommended to decrease soda and sugary beverage consumption, increase protein intake with meals (at least 1 portion of protein with each meal) to assist with satiety, increase dietary fiber Recommended at least 150 min/week of moderate intensity exercise. Encounters Date Type Department Care Team Description 06/27/2025 9:45 AM EDT Telemedicine [facility] [address] [place] [address] Jocy Joel MD Class 2 severe obesity due to excess calories with serious comorbidity and body mass index (BMI) of 36.0 to 36.9 in adult (CMS/[facility]) (Primary Dx); Elevated blood pressure reading; Migraine without aura and without status migrainosus, not intractable; Ankle edema 06/27/2025 Travel 06/26/2025 Telephone [facility] [address] [place] [phone] Jocy Joel MD Chart Prep 05/22/2025 Results Follow-Up [facility] [address] [place] [phone] Clau Blankenship NP Vascular US lower extremity venous duplex bilateral 05/09/2025 2:40 PM EDT Office Visit [facility] [address] [place] [address] Clau Blankenship NP Bilateral lower extremity edema (Primary Dx); Exertional dyspnea 05/09/2025 Travel 04/10/2025 Telephone [facility] [address] [place] [phone] Jocy Joel MD June recall from Last 3 Months Immunizations Immunization Administration [...] 9:00 AM EDT Office Visit [facility] [address] [place], [place] [phone] Pao Roach, OD [address] [place] [address] 07/18/2025 9:45 AM EDT Office Visit [facility] [address] [place] [address] Aleisha Yanez MD [address] [place] [address] Health Maintenance Due Date Last Done Comments CT Colonography 1979 Colonoscopy 1979 Colorectal Cancer Screening 1979 FIT DNA/Cologuard 1979 FIT 1979 FOBT 1979 Sigmoidoscopy 1979 Family Planning (PISQ) 1994 Hepatitis B Vaccines (1 of 3 - 19+ 3-dose series) 1998 COVID-19 Vaccine ( season) 2025 Influenza Vaccine (#1) 2025 Cervical Cancer Screening 12/14/2025 HPV/Cotest 12/14/2025 12/14/2020, 12/14/2020 Pap Smear 12/14/2025 12/14/2020 Mammogram 02/07/2026 02/07/2025, 04/0 01/2024, 01/04/2023, Additional history exists SDOH Screening 03/10/2026 03/10/2025 Depression Screening 03/17/2026 03/17/2025, 03/17/20 Disability Screening 03/17/2026 03/17/2025 Alcohol/Substance Use Screening 06/27/2026 06/27/2025 Tobacco Screening 06/27/2026 06/27/2025 Zoster Vaccines (1 of 2) 2029 Lipid [...] edema XR ANKLE 3+ VIEWS LEFT Routine 11:00 AM EDT Ankle edema VASC US LOWER EXTREMITY VENOUS DUPLEX BILATERAL Routine 05/09/2025 4:23 PM EDT Bilateral lower extremity edema BI MAMMOGRAM SCREENING TOMOSYNTHESIS BILATERAL Routine 02/07/2025 [...] Recently Relevant to Health Maintenance Results * XR Ankle 3+ Views Right (07/01/2025 11:00 AM EDT) Anatomical Region Laterality Modality Lower Extremities, Ankle Right Radiogr aphic Imaging 07/01/2025 11:0 0 AM EDT Narrative 07/01/2025 11:09 AM EDT [address] [address] XRay Report Signed Patient: Magalis Moura MR#: [id number] : 1980 Acct:[id number] Age/Sex: 45 / F ADM Date: 07/01/25 Loc: HO.HHCX Attending Dr: Jocy Joel MD Ordering Physician: Jocy Joel MD Date of Service: 07/01/25 Procedure(s): XR ankle RT min 3V Accession Number(s): [id number] cc: Jocy Joel MD Reason for Exam: [...] Steve Tran MD 07/01/2025 11:06 AM EDT RP Dictated By: Steve Tran MD Signed By: <Electronically signed by Steve Tran MD in OV> 07/01/25 1106 DD/ 1100 TD/TT: 07/01/25 1100 Patient Relations Specialist: Procedure Note Donotuseinterpreter, Image - 07/01/[address] [address] XRay Report Signed Patient: Magalis MouraMR#: [id number] : 1980Acct:[id number] Age/Sex: 45 / FADM Date: 07/01/25 Loc: HO.HHCX Attending Dr: Jocy Joel MD Ordering Physician: Jocy Joel MD Date of Service: 07/01/25 Procedure(s): XR ankle RT min 3V Accession Number(s): [id number] cc: Jocy Joel MD Reason for Exam: [...] represent an avulsion fracture. Electronically signed by: tSeve Tran MD 07/01/2025 11:06 AM EDT RP Dictated By: Steve Tran MD Signed By: <Electronically signed by Steve Tran MD in OV> 07/01/25 1106 DD/ 1100 TD/TT: 07/01/25 1100 Patient Relations Specialist: Jocy Joel MD IMG XR PROCEDURES Final Result * XR Ankle 3+ Views Left (07/01/2025 11:00 AM EDT) Anatomical Region Laterality Modality Lower Extremities, Ankle Left Radiogr aphic Imaging 07/01/2025 11:0 0 AM EDT Narrative 07/01/2025 11:11 [place] [address] XRay Report Signed Patient: Magalis Moura MR#: [id number] : 1980 Acct:[id number] Age/Sex: 45 / F ADM Date: 07/01/25 Loc: HO.HHCX Attending Dr: Jocy Joel MD Ordering Physician: Jocy Joel MD Date of Service: 07/01/25 Procedure(s): XR ankle LT min 3V Accession Number(s): [id number] cc: Jocy Joel MD Reason for Exam: [...] 07/01/25 1108 DD/ 1100 TD/TT: 07/01/25 1100 Patient Relations Specialist: Procedure Note Donotuseinterpreter, Image - 07/01/2025 [place] [address] XRay Report Signed Patient: Magalis Moura#: [id number] : 1980Acct:[id number] Age/Sex: 45 / FADM Date: 07/01/25 Loc: HO.HHCX Attending Dr: Jocy Joel MD Ordering Physician: Jocy Joel MD Date of Service: 07/01/25 Procedure(s): XR ankle LT min 3V Accession Number(s): [id number] cc: Jocy Joel MD Reason for Exam: [...] 07/01/25 1108 DD/ 1100 TD/TT: 07/01/25 1100 Patient Relations Specialist: us Jocy Joel MD IMG XR PROCEDURES Final Result * Vascular US lower extremity venous duplex bilateral (05/09/2025 4:23 PM EDT) 05/09/2025 4:23 PM EDT Narrative [facility] - 05/09/2025 4:45 PM EDT [place] [address] Ultrasound Report Signed Patient: Magalis Moura MR#: [id number] : 1980 Acct:[id number] Age/Sex: 45 / F ADM Date: 05/09/25 Loc: HO.US Attending Dr: Clau Blankenship Ordering Physician: Clau Blankenship Date of Service: 05/09/25 Procedure(s): US venous duplex LE BI Accession Number(s): [id number] cc: Clau Blankenship EXAMINATION: US TRIPLEX LOWER [...] by Hamzah Thomas MD in OV> 05/09/25 164 DD/ 1623 TD/TT: 05/09/25 1635 Patient Relations Specialist: Procedure Note Marcosotpareshter, Image - 05/09/2025 [place] [address] Ultrasound Report Signed Patient: Magalis MouraMR#: [id number] : 1980Acct:[id number] Age/Sex: 45 / FADM Date: 05/09/25 Loc: .US Attending Dr: Clau Blankenship Ordering Physician: Clau Blankenship Date of Service: 05/09/25 Procedure(s): US venous duplex LE BI Accession Number(s): [id number] cc: Clau Blankenship EXAMINATION: US TRIPLEX LOWER [...] MD 05/09/2025 04:42 PM EDT Dictated By: Hamzah Thmoas MD Signed By: <Electronically signed by Hamzah Thomas MD in OV> 05/09/25 164 DD/ 1623 TD/TT: 05/09/25 1635 Patient Relations Specialist: us Clau Blankenship CASH POSTING SPECIALIST CV VASCULAR PROCEDURES Final Re sult [facility] [address] [place] [address] * BI Mammogram Screening Tomosynthesis Bilateral (02/07/2025 1:25 PM EDT) Anatomical Region Laterality Modality Breast Bilateral Mammography 02/07/2025 1:25 PM EDT Narrative 02/15/2025 9:03 AM EDT [facility] [address] [place] [address] Mammography Report Signed Patient: Magalis Moura MR#: [id number] : 1980 Acct:[id number] Age/Sex: 44 / F ADM Date: 02/07/25 Loc: HO.MAMMO Attending Dr: Dexter Saldivar MD Ordering Physician: Dexter Ta MD Res ults: 2Benign Findings Date of Service: 02/07/25 Follow Up: 1 Year From Orig ina Mammogram Procedure(s): MM tomosynthesis screening BI Accession Number(s): [id number] cc: Dexetr Ta MD; Jocy Joel MD EXAMINATION: MM [...] 02/15/25 0900 DD/ 1325 TD/TT: 02/07/25 1344 Patient Relations Specialist: Procedure Note Donankurinterpreter, Image - 02/15/2025 [facility] [address] [place] [address] Mammography Report Signed Patient: Magalis MouraMR#: [id number] : 1980Acct:[id number] Age/Sex: 44 / FADM Date: 02/07/25 Loc: HO.MAMMO Attending Dr: Dexter Saldivar MD Ordering Physician: Dexter Ta ults: 2Benign Findings Date of Service: 02/07/25Follow Up: 1 Year From Orig inal Mammogram Procedure(s): MM tomosynthesis screening BI Accession Number(s): [id number] cc: Dexter Ta MD; Jocy Joel MD [...] 02/15/25 0900 DD/ 1325 TD/TT: 02/07/25 1344 Patient Relations Specialist: us Dexter Saldivar MD IMG BI PROCEDURES Final Result * Lipid Panel with Reflex to Direct LDL (07/03/2024 9:47 AM EDT) Triglycerides 43 <150 mg/dL [facility] Comment:Desirable Triglyceri de: less than 150 mg/dLBorderline High Triglyceride 150-199 mg/dLHigh Triglyceride: 200-499 mg/dLVery High Triglyceride: greater than or equal to 5OO mg/dL Cholesterol 126 <200 mg/dL [facility] Comment:Desirable Cholestero l: less than 200 mg/dLBorderline High Cholesterol: 200-239 mg/dLHigh Cholesterol: greater than 239 mg/dL LDL Cholesterol Calculated 66 <100 mg/dL [facility] Comment:Desirable LDL: less than 100 mg/dLNear Optimal/Above Optimal LDL: 110- 129 mg/dLBorderline High LDL: 130-159 mg/dLHigh LDL: 160-189 mg/dLVery High LDL: greater than or equal to 190 mg/dL HDL Cholesterol 52 >40 mg/dL [facility] Comment:Desirable HDL: great er than 40 mg/dL Note: This HDL assay may give artificially low results in patients with liver disease. Blood 07/03/2024 9:47 AM EDT 07/03/2024 11:09 AM EDT us Jocy Joel MD LAB BLOOD ORDERABLES Fin al Result [facility] [address] [place], [place] [phone] * Hepatitis Panel, General (07/03/2024 9:47 AM EDT) Hepatitis A IgM Nonreactive Nonreactive [facility] Comment:IgM antibodies to [facility] not detected; does not exclude earlyacute or recovered HAV infection. ~Hepatitis B Surface Antibody NONREACTIVE Nonreactive [facility] Comment:Nonreactive: < 8.00 mIU/mL Hepatitis B Core Antibody Nonreactive Nonreactive [facility] Hepatitis C Antibody Nonreactive Nonreactive [facility] Comment:Antibodies to HCV no t detected; does not exclude early acuteHCV infection. Hepatitis B Surface Ag Negative Negative [facility] Blood 07/03/2024 9:47 AM EDT 07/03/2024 11:13 AM EDT us Jocy Joel MD LAB BLOOD ORDERABLES Fin al Result Performing Organization Address [facility]/ZIP Co de Phone Number [facility] [address] [place] [phone] * HIV-1/2 Antigen and Antibodies, Fourth Generation, with Reflexes (07/03/2024 9:47 AM EDT) HIV AB/AG Nonreactive Nonreactive [facility] Comment:HIV-1 p24 Ag and/or HIV-1/HIV-2 Ab not detected.A test result that is nonreactive does not exclude thepossibility of exposure to or infection with HIV-1 and/orHIV-2. Nonreactive results in this assay for individualswith prior exposure to HIV-1 and/or HIV-2 may be due toantigen and antibody levels that are below the limit ofdetection of this assay.The [employer] HIV Ag/Ab Combo assay result andsupplemental assay results should be interpreted inconjunction with the patient's clinical presentation,history and other laboratory results. If the results areinconsistent with clinical evidence, additional testing issuggested to confirm the result. Blood Venous blood specimen / Unknown 07/03/2024 9:47 AM EDT 07/03/2024 11:13 AM EDT us Jocy Joel MD LAB BLOOD ORDERABLES Fin al Result Performing Organization Address [facility]/ZIP Co de Phone Number [facility] [address] [place] [phone] * HPV E6/E7 RFLX RHONA 16 18/45 (12/14/2020 9:59 AM EST) HPV 16 RNA [facility] HPV 18/45 RNA [facility] HPV E6 E7 ADD [facility] HPV mRNA E6/E7 rflx Not Detected Not Detected [facility] Comment: Methodology: [employer]-Mediated Amplification This assay detects E6/E7 viral messenger RNA (mRNA) from 14 high-risk HPV types (16,18,31,33,35,39,45,51,52,56,58,59,66,68). The analytical performance characteristics of this assay have been determined by [employer]. The modifications have not been cleared or approved by the FDA. This assay has been validated pursuant to the CLIA regulations and is used for clinical purposes. For additional information, please refer to http://education.[employer]/faq/DFE737v8 (This link if provided for information/ educational purposes only.) THIS TEST WAS PERFORMED AT: [facility] [address] [place] [address],[place] [address] VERNELL MARIE MD 12/14/2020 9:59 AM EST Tricia Small HISTORICAL/NON ORDERABLE LABS Fi nal Result [facility] [address] * Hm Pap Smear (12/14/2020) Historical Provider HEALTH MAINTENANCE Final Result from Last 3 Months or Most Recently Relevant to Health Maintenance Insurance OPEN ACCESS Care Teams Web Portal Developer Relationship Specialty Start Date End Date Jocy Joel MD [address] [place] [phone] PCP - General Internal Medicine 04/23/24
--- OUTSIDE RECORDS SUMMARY | 2025-07-01 13:08 | XMS_ITS | Encounter Summary ---
Author Organization [employer] Address [address] [place] [address] 7 [place] [address] Care Team Providers Care Manager Of Procurement Name Role Phone Jocy Joel MD Primary Care Provider + Reason for Visit * Reason Onset Date Comments Chart Prep 06/26/2025 Encounter Details Date Type Department Care Team ([facility] st Contact Info) Description 06/26/2025 Telephone [facility] [address] [place], [place] [phone] Jocy Joel MD [address] [place] [address] Chart Prep Social History Tobacco Use Types Packs/Day Years [...] the past 12 months, has t he [employer], gas, oil or water company threatened to [...] encounter Miscellaneous Notes * Telephone Encounter - Kathleen Winchester [place] - 06/26/2025 8:50 AM EDT Chart Prep Labs: done Images: not applicable Referrals: appointment pending Vaccines due: Covid, Flu, and Hep B Screenings: colonoscopy and LMP Overdue care gaps: SBIRT documented in this encounter Plan of Treatment Upcoming Encounters Date Type Department Care Team (Late st Contact Info) Description 07/10/2025 9:00 AM EDT Office Visit [facility] [address] [place] [address] Pao Roach OD [address] [place] [address] 07/18/2025 9:45 AM EDT Office Visit [facility] [address] [place] [address] Aleisha Yanez MD [address] [place] [address] documented as of this encounter Visit Diagnoses Not on filedocumented in this encounter Additional Health Concerns Assessment Noted Time PHQ-9 Depression Total Score: 5 03/17/20 25 10:50 AM EDT documented as of this encounter Care Teams Manager Of Procurement Relationship Specialty Start Date End Date Jocy Joel MD [address] [place] [address] PCP - General Internal Medicine 04/23/24 documented as of this encounter
--- OUTSIDE RECORDS SUMMARY | 2025-07-01 13:08 | XMS_ITS | Encounter Summary ---
Author Organization [employer] Address [address] [place] [address] 7 [place] [address] Care Team Providers Care Curator Of Education Name Role Phone Dexter Ta MD Primary Care Prov ider Johnna Hussein NP Primary Care Provider [phone] Jocy Joel MD Primary Care Provider + Reason for Visit * Reason Onset Date Comments Appointment Request 02/07/2024 Encounter Details Date Type Department Care Team (Late st Contact Info) Description 02/07/2024 Telephone [facility] [address] [place] [address] Dexter Ta MD [address] [place] [address] Appointment Request Social History Tobacco Use Types [...] the past 12 months, has t he [employer], gas, oil or water company threatened to [...] Description 07/10/2025 9:00 AM EDT Office Visit [facility] [address] [place] [address] Pao Roach, OD [address] [place] [address] 07/18/2025 9:45 AM EDT Office Visit [facility] [address] [place] [address] Aleisha Yanez MD [address] [place] [address] documented as of this encounter Visit Diagnoses Not on filedocumented in this encounter Additional Health Concerns Assessment Noted Time PHQ-9 Depression Total Score: 0 03/02/20 23 3:07 PM EDT documented as of this encounter Care Teams Curator Of Education Relationship Specialty Start Date End Date Dexter Ta MD [address] [place] [phone] PCP - General Internal Medicine 11/15/19 03/25/24 Johnna Hussein NP [address] [place] [address] PCP - General Family Medicine 03/26/24 04/22/24 Jocy Joel MD [address] [place] [address] PCP - General Internal Medicine 04/23/24 documented as of this encounter
--- OUTSIDE RECORDS SUMMARY | 2025-07-01 13:08 | XMS_ITS | Encounter Summary ---
Author Organization [employer] Address [address] [place] [address] 7 [place] [address] Care Team Providers Care Supervisor Veneer Name Role Phone Jocy Joel MD Primary Care Provider + Reason for Visit * Reason Onset Date Comments Referral 07/12/2024 Encounter Details Date Type Department Care Team ([facility] st Contact Info) Description 07/12/[address] [facility] [address] [place], [place] [phone] Jocy Joel MD [address] [place] [address] Referral Social History Tobacco Use Types Packs/Day [...] the Pulmonary function test states had called [facility] and was told has not received any orders documented in this encounter Plan of Treatment Upcoming Encounters Date Type Department Care Team (Late st Contact Info) Description 07/10/2025 9:00 AM EDT Office Visit [facility] [address] [place] [address] Pao Roach, VANESSA [address] [place] [address] 07/18/2025 9:45 AM EDT Office Visit [facility] [address] [place] [address] Aleisha Yanez MD [address] [place] [address] documented as of this encounter Visit Diagnoses Not on filedocumented in this encounter Additional Health Concerns Assessment Noted Time PHQ-9 Depression Total Score: 17 024 10:22 AM EDT documented as of this encounter Care Teams Supervisor Veneer Relationship Specialty Start Date End Date Jocy Joel MD [address] [place] [address] PCP - General Internal Medicine 04/23/24 documented as of this encounter
== END 2025-07-01 10:41 | disposition home or self-care (01) ==
LOC: HO.HHCX 10:40
PROVIDERS: PCP Internal Medicine; Visit Provider Internal Medicine
DX: M25.471 Effusion, right ankle (principal); M25.472 Effusion, left ankle
CPT/HCPCS: 73610

== ENCOUNTER → 2025-07-01 10:46 | Outpatient (BNV) | payer OTHER, SELFPAY | PROVIDERS: PCP Internal Medicine; Visit Provider Radiology Diagnostic Radiology | DX: S93.431A Sprain of tibiofibular ligament of right ankle, initial encounter (principal); M89.372 Hypertrophy of bone, left ankle and foot | CPT/HCPCS: 73610 ==

== ENCOUNTER 2025-07-29 08:41 | Outpatient (AMB) | payer OTHER, SELFPAY ==
[2025-07-29 08:56] VITALS: BMI 35.2
--- NOTE | 2025-07-29 08:56 | MHC.OFFVIS ---
Vital Signs 07/29/25 08:56 Height 5 ft Weight 180 lb BMI 35.2 Intake Visit Reasons: Chronic pain of right ankle Intake Note: Magalis is a 45 year old female who presents to the office today as a new patient referred by Dr. Joel at [facility] for chronic right ankle pain. X-rays completed by provider on 07/01/25 which questioned ankle sprain vs avulsion fracture of Medial Malleolus. Pt was given an ankle walker and was instructed to take Tylenol for pain management. Pt states she was not provided with ankle walker and she has not picked up her tylenol prescription. She notes swelling in her ankle and she does not remember an injury occurring. Patient has been having the pain for about 1 year but in the past 6 months the pain worsened. pain is located on the lateral aspect of the right ankle. Finish Sander Required: Yes Finish Sander Services: Finish Sander Present Finish Sander Name: [id number] Allergies Cortisone Allergy (Mild, Uncoded 06/02/25 21:20) Hives Medication List - Last Reconciled 07/29/25 by Brisa Castro DPM fluticasone propionate 50 mcg/actuation 1 - 2 sprays intranasal DAILY PRN levothyroxine 50 mcg PO DAILY meloxicam 15 mg PO DAILY montelukast 10 mg PO BEDTIME sumatriptan succinate take 1 tab at onset of headache; if no relief may repeat 1 tab after at least 2 hrs; max = 4 tabs/24 hr HPI Comments Details: The patient is a 45-year-old female with a PMH as seen below presenting with B/L ankle pain, left worse than right. Patient denies any inciting injuries. She states the pain is localized to the ankle, worse to the lateral aspect, and is moderate to severe in nature. The patient denies any pain radiating to the foot or toes, or up the legs. She denies any previous medications or treatment for this condition. The patient experiences instability in the ankle, feeling as though it might give out while walking. She states she notices intermittent swelling, worse to the left. She states she has some relief with rest. She denies any numbness or tingling. She denies any other pedal concerns. Patient states she works 12 hour shifts. [facility] Medical History (Updated 07/29/25 @ 09:35 by Brisa Castro DPM) Other enthesopathy of left foot and ankle Other enthesopathy of right foot and ankle History of sprain of both ankles Chronic instability of ankle Bilateral ankle pain History of painful menstruation No known health problems Ovarian cyst Hypothyroidism Surgical History H/O abdominoplasty History of bilateral breast reduction surgery Family History Father Hypertension Mother CVD (cardiovascular disease) Sister Asthma Thyroid disease Maternal Uncle Diabetes Social History (System 12/26/24 @ 15:33 by Waldo Montejo) Household Members: Spouse Housing: Apartment Alcohol intake: current Alcohol intake frequency: holidays/special occasions only Patient Tobacco Use Status: Never used Tobacco Current occupational status: employed 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 All systems reviewed & are unremarkable except as noted in HPI and below Physical Exam Vital Signs: BMI result Body Mass Index 35.2 Extrem Other: B/L LE Focused Physical Exam: Derm: Mild edema noted to the left ankle lateral aspect. No open lesions, abrasions, or wounds noted. No ecchymosis or discoloration noted. Skin supple and turgor WNL. No maceration noted. No clinical signs of infection noted. Vasc: DP/PT Pulses palpable. CFT < 3 secs. Temp gradient warm to warm. Pedal hair absent. No varicosities noted. Neuro: Protective sensations grossly intact. MSK: Pain on palpation to the ankles B/L, worse to the left. Pain along the medial and lateral gutters, ATFL, PTFL, and CFL. Pain with ROM of the ankles, worse with inversion, plantarflexion, and dorsiflexion. No crepitus noted. Positive anterior drawer test. Mildly Antalgic gait unassisted noted. No other gross abnormalities noted. MMT 4/5. Results Reviewed Results Reviewed: Podiatry Read of B/L Ankle Xrays (07/01/25): Left - Ossicle noted to the distal aspect of the medial malleolus. Os trigonum noted to the posterior aspect of the ankle. Minimal joint space narrowing noted to the ankle. No acute fractures or dislocations noted. Right - Ossicle noted to the distal aspect of the medial malleolus. Os trigonum noted to the posterior aspect of the ankle. Minimal joint space narrowing noted to the ankle. Plantar calcaneal spur noted. No acute fractures or dislocations noted. B/L Ankle Xrays (07/01/25): FINDINGS (RIGHT): Ankle mortise is congruent. There is mild widening of the syndesmosis. Talar dome is intact. There is a small ossification inferior to the medial malleolus. There is a small calcaneal enthesophyte(s). There is an os trigonum IMPRESSION: There is decreased overlap of the distal tibia and fibula concerning for a high ankle sprain. There is a small ossification inferior to the medial malleolus could be chronic, but could represent an avulsion fracture. FINDINGS (LEFT): Ankle mortise is congruent. There is no widening of the syndesmosis. Talar dome is intact. There is a moderate-sized ossification inferior to medial malleolus. There is a large os trigonum. There are no calcaneal enthesophyte(s). IMPRESSION: There is a moderate-sized bony fragment inferior to the medial malleolus that is probably a chronic accessory ossification center and much less likely to represent an acute avulsion. There is a large os trigonum. Correlate for signs symptoms of chronic posterior ankle impingement. Assessment & Plan Assessment & Plan (1) Bilateral ankle pain: Code(s): M25.571 - Pain in right ankle and joints of right foot; M25.572 - Pain in left ankle and joints of left foot Category: Medical Qualifiers: Chronicity: chronic Qualified Code(s): M25.571 - Pain in right ankle and joints of right foot; M25.572 - Pain in left ankle and joints of left foot; G89.29 - Other chronic pain (2) Chronic instability of ankle: Code(s): M25.373 - Other instability, unspecified ankle Category: Medical (3) History of sprain of both ankles: Code(s): Z87.828 - Personal history of other (healed) physical injury and trauma Category: Medical (4) Other enthesopathy of right foot and ankle: Code(s): M77.51 - Other enthesopathy of right foot and ankle Category: Medical (5) Other enthesopathy of left foot and ankle: Code(s): M77.52 - Other enthesopathy of left foot and ankle Category: Medical Plan Patient was informed and verbally consented to the use of an ambient scribe for clinic note documentation during this visit.- Prescribe meloxicam for pain and inflammation management. I discussed with the patient the presence of bone spurs and minimal arthritis in the ankles, explaining that these conditions can cause pain and instability. We talked about the use of meloxicam to manage pain and inflammation, and the importance of wearing the ankle braces to provide support. I advised the patient to use ice to help reduce swelling and pain. We also discussed the possibility of further imaging or interventions if the pain persists, and I recommended a follow-up visit in three weeks to reassess the condition. - Provided ankle braces to support the ankle and prevent instability. - Prescribed Meloxicam for pain relief. - Provided patient with a work note. - Patient may be WBAT B/L. - Recommended RICE protocol. RTC in 3 weeks for re-evaluation. Will consider MRI, injection, and/or PT if pain persists. Medications: New meloxicam 15 mg PO DAILY 30 tabs 0RF B/L Ankle Pain M25.373 - Other instability, unspecified ankle, M25.571 - Pain in right ankle and joints of right foot, M25.572 - Pain in left ankle and joints of left foot, M77.51 - Other enthesopathy of right foot and ankle, M77.52 - Other enthesopathy of left foot and ankle, Z87.828 - Personal history of other (healed) physical injury and trauma Coding Level of Care Code New Pt Level 4 (74259) Diagnoses Chronic pain of both ankles M25.571; M25.572; G89.29 Chronicity: chronic Chronic instability of ankle M25.373 History of sprain of both ankles Z87.828 Other enthesopathy of right foot and ankle M77.51 Other enthesopathy of left foot and ankle M77.52 Time Spent (min) 55
--- OUTSIDE RECORDS SUMMARY | 2025-07-29 09:01 | XMS_ITS | Clinical Summary ---
Author Organization [employer] Address [address] [place] [address] 7 [place] [address] Care Team Providers Care Small Products I Assembler Name Role Phone Jocy Joel MD Primary [...] given information regarding weight reduction program at [facility] for her to start going to the [...] life style modifications, diet and referral to change management specialist. Recommended to decrease soda and sugary beverage consumption, increase protein intake with meals (at least 1 portion of protein with each meal) to assist with satiety, increase dietary fiber Recommended at least 150 min/week of moderate intensity exercise. Encounters Date Type Department Care Team Description 07/22/2025 [employer] [facility] [address] [place] [address] Jocy Joel MD 07/15/2025 [employer] [facility] [employer] [facility] Management [address] [place], [place] [phone] Jocy Joel MD 07/10/2025 9:00 AM EDT Office Visit [facility] OPTOMETRY [address] [place], [place] [phone] Pao Roach, VANESSA Presbyopia (Primary Dx); Dry eyes 07/10/2025 Travel 07/07/2025 Results Follow-Up [facility] MEDICINE [address] [place] [phone] Jocy Joel MD XR Ankle 3+ Views Right, XR Ankle 3+ Views Left 06/27/2025 9:45 AM EDT Telemedicine [facility] MEDICINE [address] [place], [place] [phone] Jocy Joel MD Class 2 severe obesity due to excess calories with serious comorbidity and body mass index (BMI) of 36.0 to 36.9 in adult ([facility]) (Primary Dx); Elevated blood pressure reading; Migraine without aura and without status migrainosus, not intractable; Ankle edema 06/27/2025 Travel 06/26/2025 Telephone [facility] MEDICINE [address] [place], [place] [phone] Jocy Joel MD Chart Prep 05/22/2025 Results Follow-Up [facility] MEDICINE [address] [place] [address] Clau Blankenship NP Vascular US lower extremity venous duplex bilateral 05/09/2025 2:40 PM EDT Office Visit [facility] [address] [facility] [place] [address] Clau Blankenship NP Bilateral lower extremity edema (Primary Dx); Exertional dyspnea 05/09/2025 Travel from Last 3 Months Immunizations Immunization Administration [...] 05/09/2025 2:34 PM EDT Plan of Treatment Health Maintenance Due Date Last Done Comments [...] Alcohol/Substance Use Screening 06/27/2026 06/27/2025 Tobacco Screening 07/10/2026 07/10/2025 Zoster Vaccines (1 of 2) 2029 Lipid [...] AM EDT Narrative 07/01/2025 11:09 AM EDT [address] [address] XRay Report Signed Patient: Magalis Moura MR#: [id number] : 1980 Acct:[id number] Age/Sex: 45 / F ADM Date: 07/01/25 Loc: HO.HHCX Attending Dr: Jocy Joel MD Ordering Physician: oJcy Joel MD Date of Service: 07/01/25 Procedure(s): XR ankle RT min 3V Accession Number(s): [id number] cc: Jocy Joel MD Reason for Exam: [...] 07/01/25 1106 DD/ 1100 TD/TT: 07/01/25 1100 Tensioning Machine Operator: Procedure Note Donotuseinterpreter, Image - 07/01/[address] [address] XRay Report Signed Patient: Magalis MouraMR#: [id number] : 1980Acct:[id number] Age/Sex: 45 / FADM Date: 07/01/25 Loc: HO.HHCX Attending Dr: Jocy Joel MD Ordering Physician: Jocy Joel MD Date of Service: 07/01/25 Procedure(s): XR ankle RT min 3V Accession Number(s): [id number] cc: Jocy Joel MD Reason for Exam: [...] 07/01/25 1106 DD/ 1100 TD/TT: 07/01/25 1100 Tensioning Machine Operator: Jocy Joel MD IMG XR PROCEDURES Final Result * XR Ankle 3+ Views Left (07/01/2025 11:00 AM EDT) Anatomical Region Laterality Modality Lower Extremities, Ankle Left Radiogr aphic Imaging 07/01/2025 11:0 0 AM EDT Narrative 07/01/2025 11:11 [place] [address] XRay Report Signed Patient: Magalis Moura MR#: [id number] : 1980 Acct:[id number] Age/Sex: 45 / F ADM Date: 07/01/25 Loc: HO.HHCX Attending Dr: Jocy Joel MD Ordering Physician: Jocy Joel MD Date of Service: 07/01/25 Procedure(s): XR ankle LT min 3V Accession Number(s): [id number] cc: Jocy Jole MD Reason for Exam: bl ankle edema/pain [...] 07/01/25 1108 DD/ 1100 TD/TT: 07/01/25 1100 Tensioning Machine Operator: Procedure Note Donotuseinterpreter, Image - 07/01/[address] [address] XRay Report Signed Patient: Magalis MouraMR#: [id number] : 1980Acct:[id number] Age/Sex: 45 / FADM Date: 07/01/25 Loc: HO.HHCX Attending Dr: Jocy Joel MD Ordering Physician: Jocy Joel MD Date of Service: 07/01/25 Procedure(s): XR ankle LT min 3V Accession Number(s): [id number] cc: Jocy Joel MD Reason for Exam: [...] 07/01/25 1108 DD/ 1100 TD/TT: 07/01/25 1100 Tensioning Machine Operator: us Jocy Joel MD IMG XR PROCEDURES Final Result * Vascular US lower extremity venous duplex bilateral (05/09/2025 4:23 PM EDT) 05/09/2025 4:23 PM EDT Narrative [facility] - 05/09/2025 4:45 PM EDT [place] [address] Ultrasound Report Signed Patient: Magalis Moura MR#: [id number] : 1980 Acct:[id number] Age/Sex: 45 / F ADM Date: 05/09/25 Loc: .US Attending Dr: Clau Blankenship Ordering Physician: Clau Blankenship Date of Service: 05/09/25 Procedure(s): US venous duplex LE BI Accession Number(s): [id number] cc: Clau Blankenship EXAMINATION: US TRIPLEX LOWER [...] 05/09/25 1642 DD/ 1623 TD/TT: 05/09/25 1635 Tensioning Machine Operator: Procedure Note Donotservandointerpreter, Image - 05/09/[address] [address] Ultrasound Report Signed Patient: Magalis MouraMR#: [id number] : 1980Acct:[id number] Age/Sex: 45 / FADM Date: 05/09/25 Loc: HO.US Attending Dr: Clau Blankenship Ordering Physician: Clau Blankenship Date of Service: 05/09/25 Procedure(s): US venous duplex LE BI Accession Number(s): [id number] cc: Clau Blankenship EXAMINATION: US TRIPLEX LOWER [...] 05/09/2025 04:42 PM EDT Dictated By: Hamzah Thomas MD Signed By: <Electronically signed by Hamzah Thomas MD in OV> 05/09/25 1642 DD/ 1623 TD/TT: 05/09/25 1635 Tensioning Machine Operator: us Clau Blankenship CONTROL SYSTEMS DRAFTING OFFICER CV VASCULAR PROCEDURES Final Re sult [facility] [address] [place] [address] * BI Mammogram Screening Tomosynthesis Bilateral (02/07/2025 1:25 PM EDT) Anatomical Region Laterality Modality Breast Bilateral Mammography 02/07/2025 1:25 PM EDT Narrative 02/15/2025 9:03 AM EDT [facility] [address] [place], [place] [address] Mammography Report Signed Patient: Magalis Moura MR#: [id number] : 1980 Acct:[id number] Age/Sex: 44 / F ADM Date: 02/07/25 Loc: HO.MAMMO Attending Dr: Dexter Saldivar MD Ordering Physician: Dexter Ta MD Res ults: 2Benign Findings Date of Service: 02/07/25 Follow Up: 1 Year From Orig ina Mammogram Procedure(s): MM tomosynthesis screening BI Accession Number(s): [id number] cc: Dexter Ta MD; Jocy Joel MD [...] 02/15/25 0900 DD/ 1325 TD/TT: 02/07/25 1344 Tensioning Machine Operator: Procedure Note Donotservandointerpreter, Image - 02/15/2025 [facility] [address] [place] [address] Mammography Report Signed Patient: Magalis MouraMR#: [id number] : 1980Acct:[id number] Age/Sex: 44 / FADM Date: 02/07/25 Loc: HO.MAMMO Attending Dr: Dexter Saldivar MD Ordering Physician: Dexter Ta ults: 2Benign Findings Date of Service: 02/07/25Follow Up: 1 Year From Orig inal Mammogram Procedure(s): MM tomosynthesis screening BI Accession Number(s): [id number] cc: Dexter Ta MD; Jocy Joel MD [...] 02/15/25 0900 DD/ 1325 TD/TT: 02/07/25 1344 Tensioning Machine Operator: us Dexter Saldivar MD IMG BI PROCEDURES Final Result * Lipid Panel with Reflex to Direct LDL (07/03/2024 9:47 AM EDT) Triglycerides 43 <150 mg/dL [facility] Comment:Desirable Triglyceri de: less than 150 mg/dLBorderline High Triglyceride 150-199 mg/dLHigh Triglyceride: 200-499 mg/dLVery High Triglyceride: greater than or equal to 5OO mg/dL Cholesterol 126 <200 mg/dL [facility] Comment:Desirable Cholestero l: less than 200 mg/dLBorderline High Cholesterol: 200-239 mg/dLHigh Cholesterol: greater than 239 mg/dL LDL Cholesterol Calculated 66 <100 mg/dL [facility] Comment:Desirable LDL: less than 100 mg/dLNear Optimal/Above Optimal LDL: 110- 129 mg/dLBorderline High LDL: 130-159 mg/dLHigh LDL: 160-189 mg/dLVery High LDL: greater than or equal to 190 mg/dL HDL Cholesterol 52 >40 mg/dL [facility] Comment:Desirable HDL: great er than 40 mg/dL Note: This HDL assay may give artificially low results in patients with liver disease. Blood 07/03/2024 9:47 AM EDT 07/03/2024 11:09 AM EDT us Jocy Joel MD LAB BLOOD ORDERABLES Fin al Result [facility] [address] [place] [address] [phone] * Hepatitis Panel, General (07/03/2024 9:47 AM EDT) Hepatitis A IgM Nonreactive Nonreactive [facility] Comment:IgM antibodies to HUDSON V not detected; does not exclude earlyacute or recovered HAV infection. ~Hepatitis B Surface Antibody NONREACTIVE Nonreactive [facility] Comment:Nonreactive: < 8.00 mIU/mL Hepatitis B Core Antibody Nonreactive Nonreactive [facility] Hepatitis C Antibody Nonreactive Nonreactive [facility] Comment:Antibodies to HCV no t detected; does not exclude early acuteHCV infection. Hepatitis B Surface Ag Negative Negative [facility] Blood 07/03/2024 9:47 AM EDT 07/03/2024 11:13 AM EDT us Jocy Joel MD LAB BLOOD ORDERABLES Fin al Result [facility] [address] [place] [address] [phone] * HIV-1/2 Antigen and Antibodies, Fourth Generation, with Reflexes (07/03/2024 9:47 AM EDT) Pathologist [facility] HIV AB/AG Nonreactive Nonreactive [facility] Comment:HIV-1 p24 Ag and/or HIV-1/HIV-2 Ab not detected.A test result that is nonreactive does not exclude thepossibility of exposure to or infection with HIV-1 and/orHIV-2. Nonreactive results in this assay for individualswith prior exposure to HIV-1 and/or HIV-2 may be due toantigen and antibody levels that are below the limit ofdetection of this assay.The [employer] HIV Ag/Ab Combo assay result andsupplemental assay results should be interpreted inconjunction with the patient's clinical presentation,history and other laboratory results. If the results areinconsistent with clinical evidence, additional testing issuggested to confirm the result. Blood Venous blood specimen / Unknown 07/03/2024 9:47 AM EDT 07/03/2024 11:13 AM EDT us Jocy Joel MD LAB BLOOD ORDERABLES Fin al Result Performing Organization Address City/[facility]/ZIP Co de Phone Number [facility] [address] [place] [address] [phone] * HPV E6/E7 RFLX RHONA 16 18/45 (12/14/2020 9:59 AM EST) HPV 16 RNA [facility] HPV 18/45 RNA [facility] HPV E6 E7 ADD [facility] HPV mRNA E6/E7 rflx Not Detected Not Detected [facility] Comment: Methodology: Hand Screen Printer-Mediated Amplification This assay detects E6/E7 viral messenger RNA (mRNA) from 14 high-risk HPV types (16,18,31,33,35,39,45,51,52,56,58,59,66,68). The analytical performance characteristics of this assay have been determined by [employer]. The modifications have not been cleared or approved by the FDA. This assay has been validated pursuant to the CLIA regulations and is used for clinical purposes. For additional information, please refer to http://education.[employer]/faq/EOG416e5 (This link if provided for information/ educational purposes only.) THIS TEST WAS PERFORMED AT: [facility] [address] [place] [address],[place] [address] VERNELL MARIE MD 12/14/2020 9:59 AM EST Tricia Small HISTORICAL/NON ORDERABLE LABS Fi nal Result [facility] [address] * Hm Pap Smear (12/14/2020) Historical Provider HEALTH MAINTENANCE Final Result from Last 3 Months or Most Recently Relevant to Health Maintenance [place] [address] Care Teams Small Products I Assembler Relationship Specialty Start Date End Date Jocy Joel MD [address] [place] [phone] PCP - General Internal Medicine 04/23/24
--- OUTSIDE RECORDS SUMMARY | 2025-07-29 09:01 | XMS_ITS | Encounter Summary ---
Author Organization [employer] Address [address] [place] [address] 7 [place] [address] Care Team Providers Care Material Damage Adjuster Name Role Phone Dexter Ta MD Primary Care Prov ider Johnna Hussein NP Primary Care Provider [phone] Jocy Joel MD Primary Care Provider + Reason for Visit * Reason Onset Date Comments Appointment Request 02/07/2024 Encounter Details Date Type Department Care Team (Late st Contact Info) Description 02/07/2024 Telephone [facility] [address] [place] [address] Dexter Ta MD [address] [place] [address] Appointment Request Social History Tobacco Use Types [...] documented as of this encounter Care Teams Material Damage Adjuster Relationship Specialty Start Date End Date Dexter Ta MD [address] [place] [address] PCP - General Internal Medicine 11/15/19 03/25/24 Johnna Hussein NP [address] [place] [address] PCP - General Family Medicine 03/26/24 04/22/24 Jocy Joel MD [address] [place] [address] PCP - General Internal Medicine 04/23/24 documented as of this encounter
--- OUTSIDE RECORDS SUMMARY | 2025-07-29 09:01 | XMS_ITS | Encounter Summary ---
Author Organization [employer] Address [address] [place] [address] 7 [place] [address] Care Team Providers Care Knuckle Bender Name Role Phone Dexter Ta MD Primary Care Prov ider Johnna Hussein NP Primary Care Provider [phone] Jocy Joel MD Primary Care Provider + Encounter Details Date Type Department Care Team (Late st Contact Info) Description 06/30/2023 Orders Only [facility] [address] [place] [address] Provider, MD Macie Social History Tobacco Use [...] as of this encounter Plan of Treatment Not on file documented as of this encounter Procedures Procedure [...] documented as of this encounter Care Teams Knuckle Bender Relationship Specialty Start Date End Date Dexter Ta MD [address] [place] [address] PCP - General Internal Medicine 11/15/19 03/25/24 Johnna Hussein NP [address] [place] [address] PCP - General Family Medicine 03/26/24 04/22/24 Jocy Joel MD [address] [place] [address] PCP - General Internal Medicine 04/23/24 documented as of this encounter
--- OUTSIDE RECORDS SUMMARY | 2025-07-29 09:01 | XMS_ITS | Encounter Summary ---
Author Organization [employer] Address [address] [place] [address] 7 [place] [address] Care Team Providers Care Motel Front Desk Clerk Name Role Phone Jocy Joel MD Primary Care Provider + Reason for Visit * Reason Onset Date Comments Referral 07/12/2024 Encounter Details Date Type Department Care Team ([facility] st Contact Info) Description 07/12/2024 Telephone [facility] [address] [place], [place] [phone] Jocy Joel MD [address] [place] [address] Referral Social History Tobacco Use Types Packs/Day [...] the Pulmonary function test states had called [facility] and was told has not received any orders documented in this encounter Plan of Treatment Not on file documented as of this encounter Visit Diagnoses Not on filedocumented in this encounter Additional Health Concerns Assessment Noted Time PHQ-9 Depression Total Score: 17 024 10:22 AM EDT documented as of this encounter Care Teams Motel Front Desk Clerk Relationship Specialty Start Date End Date Jocy Joel MD [address] [place] [address] PCP - General Internal Medicine 04/23/24 documented as of this encounter
== END 2025-07-29 09:28 | disposition home or self-care (01) ==
LOC: HO.HPODS 08:42
PROVIDERS: PCP Internal Medicine; Visit Provider Student in an Organized Health Care Education/Training Program
DX: M25.571 Pain in right ankle and joints of right foot (principal); M25.572 Pain in left ankle and joints of left foot; G89.29 Other chronic pain; M25.373 Other instability, unspecified ankle; Z87.828 Personal history of other (healed) physical injury and trauma; M77.51 Other enthesopathy of right foot and ankle; M77.52 Other enthesopathy of left foot and ankle
CPT/HCPCS: 99204

== ENCOUNTER 2025-08-21 08:06 | Outpatient (AMB) | payer OTHER, SELFPAY ==
--- OUTSIDE RECORDS SUMMARY | 2025-08-21 08:20 | XMS_ITS | Encounter Summary ---
Author Organization [employer] Address [address] [place] [address] 7 [place] [address] Care Team Providers Care Manager Local Name Role Phone Jocy Joel MD Primary Care Provider + Reason for Visit * Reason Onset Date Comments Referral 07/12/2024 Encounter Details Date Type Department Care Team ([facility] st Contact Info) Description 07/12/2024 Telephone [facility]INE [address] [place], [place] [phone] Jocy Joel MD [address] [place] [address] Referral Social History Tobacco Use Types Packs/Day [...] the Pulmonary function test states had called [facility] and was told has not received any orders documented in this encounter Plan of Treatment Not on file documented as of this encounter Visit Diagnoses Not on filedocumented in this encounter Additional Health Concerns Assessment Noted Time PHQ-9 Depression Total Score: 17 024 10:22 AM EDT documented as of this encounter Care Teams Manager Local Relationship Specialty Start Date End Date Jocy Joel MD [address] [place] [address] PCP - General Internal Medicine 04/23/24 documented as of this encounter
--- OUTSIDE RECORDS SUMMARY | 2025-08-21 08:20 | XMS_ITS | Encounter Summary ---
Author Organization [employer] Address [address] [place] [address] 7 [place] [address] Care Team Providers Care Foil Wrapper Name Role Phone Dexter Ta MD Primary Care Prov ider Johnna Hussein NP Primary Care Provider [phone] Jocy Joel MD Primary Care Provider + Reason for Visit * Reason Onset Date Comments Appointment Request 02/07/2024 Encounter Details Date Type Department Care Team (Late st Contact Info) Description 02/07/2024 Telephone [facility] MEDICINE [address] [place] [address] Dexter Ta MD [address] [place] [address] Appointment Request Social History Tobacco Use Types [...] documented as of this encounter Care Teams Foil Wrapper Relationship Specialty Start Date End Date Dexter Ta MD [address] [place] [address] PCP - General Internal Medicine 11/15/19 03/25/24 Johnna Hussein NP 230 [place] [address] PCP - General Family Medicine 03/26/24 04/22/24 Jocy Joel MD [address] [place] [address] PCP - General Internal Medicine 04/23/24 documented as of this encounter
--- OUTSIDE RECORDS SUMMARY | 2025-08-21 08:20 | XMS_ITS | Encounter Summary ---
Author Organization [employer] Address [address] [place] [address] 7 [place] [address] Care Team Providers Care Blemish Remover Name Role Phone Dexter Ta MD Primary Care Prov ider Johnna Hussein NP Primary Care Provider [phone] Jocy Joel MD Primary Care Provider + Encounter Details Date Type Department Care Team (Late st Contact Info) Description 06/30/2023 Orders Only [facility] MEDICINE [address] [place] [address] Provider, MD Macie Social History Tobacco Use [...] documented as of this encounter Care Teams Blemish Remover Relationship Specialty Start Date End Date Dexter Ta MD [address] [place] [address] PCP - General Internal Medicine 11/15/19 03/25/24 Johnna Hussein NP [address] [place] [address] PCP - General Family Medicine 03/26/24 04/22/24 Jocy Joel MD [address] [place] [address] PCP - General Internal Medicine 04/23/24 documented as of this encounter
--- OUTSIDE RECORDS SUMMARY | 2025-08-21 08:20 | XMS_ITS | Clinical Summary ---
Author Organization [employer] Address [address] [place] [address] 7 [place] [address] Care Team Providers Care Preschool Education Director Name Role Phone Jocy Joel MD Primary [...] given information regarding weight reduction program at [facility] for her to start [...] life style modifications, diet and referral to drug discovery informatics specialist. Recommended to decrease soda and sugary beverage consumption, increase protein intake with meals (at least 1 portion of protein with each meal) to assist with satiety, increase dietary fiber Recommended at least 150 min/week of moderate intensity exercise. Encounters Date Type Department Care Team Description 07/22/2025 [facility] [address] [place] [address] Jocy Joel MD 07/15/2025 [facility] [address] [place], [place] [phone] Jocy Joel MD 07/10/2025 9:00 AM EDT Office Visit [facility] [address] [place], [place] [phone] Pao Roach, VANESSA Presbyopia (Primary Dx); Dry eyes 07/10/2025 Travel 07/07/2025 Results Follow-Up [facility] [address] [place] [phone] Jocy Joel MD XR Ankle 3+ Views Right, XR Ankle 3+ Views Left 06/27/2025 9:[address] [facility] [address] [place], [place] [phone] Jocy Joel MD Class 2 severe obesity due to excess calories with serious comorbidity and body mass index (BMI) of 36.0 to 36.9 in adult ([facility]) (Primary Dx); Elevated blood pressure reading; Migraine without aura and without status migrainosus, not intractable; Ankle edema 06/27/2025 Travel 06/26/[address] [facility] [address] [place], [place] [phone] Jocy Joel MD Chart Prep 05/22/2025 Results Follow-Up [facility] [address] [place] [address] Clau Blankenship NP Vascular US lower extremity venous duplex bilateral from Last 3 Months Immunizations Immunization Administration [...] is your housing situation today? I have cheikhshira gaines 03/10/[address] you [...] 03/17/2025, 03/17/20 25 Disability Screening 03/17/2026 03/17/2025 Alcohol/Substance Use Screening [...] LEFT Routine 11:00 AM EDT Ankle edema BI MAMMOGRAM SCREENING TOMOSYNTHESIS BILATERAL Routine [...] AM EDT Narrative 07/01/2025 11:09 AM EDT [address] [address] XRay Report Signed Patient: Magalis Moura MR#: [id number] : 1980 Acct:[id number] Age/Sex: 45 / F ADM Date: 07/01/25 Loc: HO.HHCX Attending Dr: Jocy Joel MD Ordering Physician: Jocy Joel MD Date of Service: 07/01/25 Procedure(s): XR ankle RT min 3V Accession Number(s): [id number] cc: oJcy Joel MD Reason for Exam: bl ankle [...] 07/01/25 1106 DD/ 1100 TD/TT: 07/01/25 1100 Claims Account Manager: Procedure Note Donotuseinterpreter, Image - 07/01/[address] [address] XRay Report Signed Patient: Magalis MouraMR#: [id number] : 1980Acct:[id number] Age/Sex: 45 / FADM Date: 07/01/25 Loc: .HHCX Attending Dr: Jocy Joel MD Ordering Physician: Jocy Joel MD Date of Service: 07/01/25 Procedure(s): XR ankle RT min 3V Accession Number(s): [id number] cc: Jocy Joel MD Reason for Exam: [...] 07/01/25 1106 DD/ 1100 TD/TT: 07/01/25 1100 Claims Account Manager: Jocy Joel MD IMG XR PROCEDURES Final Result * XR Ankle 3+ Views Left (07/01/2025 11:00 AM EDT) Anatomical Region Laterality Modality Lower Extremities, Ankle Left Radiogr aphic Imaging 07/01/2025 11:0 0 AM EDT Narrative 07/01/2025 11:11 AM EDT [facility] [address] [place] [address] XRay Report Signed Patient: Magalis Moura MR#: [id number] : 1980 Acct:[id number] Age/Sex: 45 / F ADM Date: 07/01/25 Loc: HO.HHCX Attending Dr: Jocy Joel MD Ordering Physician: Jocy Joel MD Date of Service: 07/01/25 Procedure(s): XR ankle LT min 3V Accession Number(s): [id number] cc: Jocy Joel MD Reason for Exam: [...] Tran MD in OV> 07/01/25 1108 DD/ 99 TD/TT: 07/01/251099 Claims Account Manager: Procedure Note Fouziater, Image - 07/01/[address] [address] XRay Report Signed Patient: Magalis MouraMR#: [id number] : 1980Acct:[id number] Age/Sex: 45 / FADM Date: 07/01/25 Loc: .HHCX Attending Dr: Jocy Joel MD Ordering Physician: Jocy Joel MD Date of Service: 07/01/25 Procedure(s): XR ankle LT min 3V Accession Number(s): [id number] cc: Jocy Joel MD Reason for Exam: [...] in OV> 07/01/25 1108 DD/ 1100 TD/TT: 09/23/25 1100 Claims Account Manager: us Jocy Joel MD IMG XR PROCEDURES Final Result * BI Mammogram Screening Tomosynthesis Bilateral (02/07/2025 1:25 PM EDT) Anatomical Region Laterality Modality Breast Bilateral Mammography 02/07/2025 1:25 PM EDT Narrative 02/15/2025 9:03 AM EDT [place] [facility] [address] [place] [address] Mammography Report Signed Patient: Magalis Moura MR#: [id number] : 1980 Acct:[id number] Age/Sex: 44 / F ADM Date: 02/07/25 Loc: HO.MAMMO Attending Dr: Dexter Saldivar MD Ordering Physician: Dexter Ta MD Res ults: 2Benign Findings Date of Service: 02/07/25 Follow Up: 1 Year From [facility] Mammogram Procedure(s): MM tomosynthesis screening BI Accession Number(s): [id number] cc: Dexter Ta MD; Jocy Joel MD [...] Theodora Biggs DO 02/15/2025 09:00 AM EDT RP Dictated By: Theodora Biggs DO Signed By: <Electronically signed by Theodora Biggs DO in OV> 02/15/25 0900 DD/ 1325 TD/TT: 02/07/25 1344 Claims Account Manager: Procedure Note Donotuseinterpreter, Image - 02/15/2025 [facility] [address] [place] [address] Mammography Report Signed Patient: Magalis MouraMR#: [id number] : 1980Acct:[id number] Age/Sex: 44 / FADM Date: 02/07/25 Loc: HO.MAMMO Attending Dr: Dexter Saldivar MD Ordering Physician: Dexter Ta ults: 2Benign Findings Date of Service: 02/07/25Follow Up: 1 Year From Orig ina Mammogram Procedure(s): MM tomosynthesis screening BI Accession Number(s): [id number] cc: Dexter Ta MD; Jocy Joel MD [...] 02/15/25 0900 DD/ 1325 TD/TT: 02/07/25 1344 Claims Account Manager: us Dexter Saldivar MD IMG BI PROCEDURES Final Result * Lipid Panel with Reflex to Direct LDL (07/03/2024 9:47 AM EDT) Triglycerides 43 <150 mg/dL [facility] Comment:Desirable Triglyceri de: less than 150 mg/dLBorderline High Triglyceride 150-199 mg/dLHigh Triglyceride: 200-499 mg/dLVery High Triglyceride: greater than or equal to 5OO mg/dL Cholesterol 126 <200 mg/dL [facility] Comment:Desirable Cholestero l: less than 200 mg/dLBorderline High Cholesterol: 200-239 mg/dLHigh Cholesterol: greater than 239 mg/dL LDL Cholesterol Calculated 66 <100 mg/dL [facility] Comment:Desirable LDL: less than 100 mg/dLNear Optimal/Above Optimal LDL: 110- 129 mg/dLBorderline High LDL: 130-159 mg/dLHigh LDL: 160-189 mg/dLVery High LDL: greater than or equal to 190 mg/dL HDL Cholesterol 52 >40 mg/dL [facility] Comment:Desirable HDL: great er than 40 mg/dL Note: This HDL assay may give artificially low results in patients with liver disease. Blood 07/03/2024 9:47 AM EDT 07/03/2024 11:09 AM EDT us Jocy Joel MD LAB BLOOD ORDERABLES Fin al Result [facility] [address] [place] [address] [phone] * Hepatitis Panel, General (07/03/2024 9:47 AM EDT) Hepatitis A IgM Nonreactive Nonreactive [facility] Comment:IgM antibodies to HUDSON V not detected; does not exclude earlyacute or recovered HAV infection. ~Hepatitis B Surface Antibody NONREACTIVE Nonreactive [facility] Comment:Nonreactive: < 8.00 mIU/mL Hepatitis B Core Antibody Nonreactive Nonreactive [facility] Hepatitis C Antibody Nonreactive Nonreactive [facility] Comment:Antibodies to HCV no t detected; does not exclude early acuteHCV infection. Hepatitis B Surface Ag Negative Negative [facility] Blood 07/03/2024 9:47 AM EDT 07/03/2024 11:13 AM EDT us Jocy Joel MD LAB BLOOD ORDERABLES Fin al Result Performing Organization Address [facility] Co de Phone Number [facility] [address] [place] [phone] * HIV-1/2 Antigen and Antibodies, Fourth Generation, with Reflexes (07/03/2024 9:47 AM EDT) HIV AB/AG Nonreactive Nonreactive [facility] Comment:HIV-1 p24 Ag and/or HIV-1/HIV-2 Ab not detected.A test result that is nonreactive does not exclude thepossibility of exposure to or infection with HIV-1 and/orHIV-2. Nonreactive results in this assay for individualswith prior exposure to HIV-1 and/or HIV-2 may be due toantigen and antibody levels that are below the limit ofdetection of this assay.The [employer] HIV Ag/Ab Combo assay result andsupplemental assay results should be interpreted inconjunction with the patient's clinical presentation,history and other laboratory results. If the results areinconsistent with clinical evidence, additional testing issuggested to confirm the result. Blood Venous blood specimen / Unknown 07/03/2024 9:47 AM EDT 07/03/2024 11:13 AM EDT us Jocy Joel MD LAB BLOOD ORDERABLES Fin al Result Performing Organization Address [facility]/ZIP Co de Phone Number [facility] [address] [place] [phone] * HPV E6/E7 RFLX RHONA 16 18/45 (12/14/2020 9:59 AM EST) HPV 16 RNA [facility] HPV 18/45 RNA [facility] HPV E6 E7 ADD [facility] HPV mRNA E6/E7 rflx Not Detected Not Detected [facility] Comment: Methodology: [employer]-Mediated Amplification This assay detects E6/E7 viral messenger RNA (mRNA) from 14 high-risk HPV types (16,18,31,33,35,39,45,51,52,56,58,59,66,68). The analytical performance characteristics of this assay have been determined by [employer]. The modifications have not been cleared or approved by the FDA. This assay has been validated pursuant to the CLIA regulations and is used for clinical purposes. For additional information, please refer to http://education.[employer]/faq/DDJ207m7 (This link if provided for information/ educational purposes only.) THIS TEST WAS PERFORMED AT: [facility] [address] [place] [address],[place] [phone] VERNELL MARIE MD 12/14/2020 9:59 AM EST us Tricia Small HISTORICAL/NON ORDERABLE LABS Fi nal Result [facility] [address] * Hm Pap Smear (12/14/2020) us Historical Provider HEALTH MAINTENANCE Final Result from Last 3 Months or Most Recently Relevant to Health Maintenance [place] [address] [place] [address] [place] [address] Care Teams Preschool Education Director Relationship Specialty Start Date End Date Jocy Joel MD [address] [place] [phone] PCP - General Internal Medicine 04/23/24
[2025-08-21 08:33] VITALS: BMI 35.2
--- NOTE | 2025-08-21 08:33 | MHC.OFFVIS ---
Vital Signs 08/21/25 08:33 Height 5 ft Weight 180 lb BMI 35.2 Intake Visit Reasons: B/L chronic ankle instability Intake Note: Magalis is a 45 year old female who presents today for bilateral ankle instability. At her last visit she was provided with bilateral ankle brace to support the ankle and prevent instability. She was also prescribed meloxicam for pain relief, and she was advised to follow the RICE protocol. Patient reports she has had seen a significant improvement while using the ankle brace and she has not started the meloxicam at this time. Naturalization Examiner Required: Yes Naturalization Examiner Services: Naturalization Examiner Present Naturalization Examiner Name: [id number] Allergies Cortisone Allergy (Mild, Uncoded 06/02/25 21:20) Hives HPI Comments Details: The patient is a 45-year-old female presenting for a follow up of B/L chronic ankle instability, worse to the left. She states She has noticed significant improvement since her last visit. Patient states she utilizes the lace-up ankle braces and notices relief of pain. Patient states she notices pain only when the brace is not being used. Patient states she has not had to take the meloxicam yet but does still have it in case pain worsens. Patient states she notices more pain to the ankles with increased weight gain. She denies any new pedal injuries. She denies any other pedal concerns. [facility] Medical History (Updated 07/29/25 @ 09:35 by Brisa Castro DPM) Other enthesopathy of left foot and ankle Other enthesopathy of right foot and ankle History of sprain of both ankles Chronic instability of ankle Bilateral ankle pain History of painful menstruation No known health problems Ovarian cyst Hypothyroidism Surgical History H/O abdominoplasty History of bilateral breast reduction surgery Family History Father Hypertension Mother CVD (cardiovascular disease) Sister Asthma Thyroid disease Maternal Uncle Diabetes Social History (System 12/26/24 @ 15:33 by Waldo Montejo) Household Members: Spouse Housing: Apartment Alcohol intake: current Alcohol intake frequency: holidays/special occasions only Patient Tobacco Use Status: Never used Tobacco Current occupational status: employed 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 All systems reviewed & are unremarkable except as noted in HPI and below Physical Exam Vital Signs: BMI result Body Mass Index 35.2 Extrem Other: B/L LE Focused Physical Exam: Derm: Reduced edema noted to the left ankle lateral aspect. No open lesions, abrasions, or wounds noted. No ecchymosis or discoloration noted. Skin supple and turgor WNL. No maceration noted. No clinical signs of infection noted. Vasc: DP/PT Pulses palpable. CFT < 3 secs. Temp gradient warm to warm. Pedal hair absent. No varicosities noted. Neuro: Protective sensations grossly intact. MSK: mildPain on palpation to the ankles B/L, worse to the left. Pain along the lateral gutters and ATFL. mildPain with ROM of the ankles, worse with inversion, plantarflexion, and dorsiflexion. No crepitus noted. Positive anterior drawer test. Mildly Antalgic gait unassisted noted. Patient seen wearing ankle braces bilaterally. No other gross abnormalities noted. MMT 4/5. Results Reviewed Results Reviewed: Podiatry Read of B/L Ankle Xrays (07/01/25): Left - Ossicle noted to the distal aspect of the medial malleolus. Os trigonum noted to the posterior aspect of the ankle. Minimal joint space narrowing noted to the ankle. No acute fractures or dislocations noted. Right - Ossicle noted to the distal aspect of the medial malleolus. Os trigonum noted to the posterior aspect of the ankle. Minimal joint space narrowing noted to the ankle. Plantar calcaneal spur noted. No acute fractures or dislocations noted. B/L Ankle Xrays (07/01/25): FINDINGS (RIGHT): Ankle mortise is congruent. There is mild widening of the syndesmosis. Talar dome is intact. There is a small ossification inferior to the medial malleolus. There is a small calcaneal enthesophyte(s). There is an os trigonum IMPRESSION: There is decreased overlap of the distal tibia and fibula concerning for a high ankle sprain. There is a small ossification inferior to the medial malleolus could be chronic, but could represent an avulsion fracture. FINDINGS (LEFT): Ankle mortise is congruent. There is no widening of the syndesmosis. Talar dome is intact. There is a moderate-sized ossification inferior to medial malleolus. There is a large os trigonum. There are no calcaneal enthesophyte(s). IMPRESSION: There is a moderate-sized bony fragment inferior to the medial malleolus that is probably a chronic accessory ossification center and much less likely to represent an acute avulsion. There is a large os trigonum. Correlate for signs symptoms of chronic posterior ankle impingement. Assessment & Plan Assessment & Plan (1) Bilateral ankle pain: Code(s): M25.571 - Pain in right ankle and joints of right foot; M25.572 - Pain in left ankle and joints of left foot Category: Medical Qualifiers: Chronicity: chronic Qualified Code(s): M25.571 - Pain in right ankle and joints of right foot; M25.572 - Pain in left ankle and joints of left foot; G89.29 - Other chronic pain (2) Chronic instability of ankle: Code(s): M25.373 - Other instability, unspecified ankle Category: Medical (3) History of sprain of both ankles: Code(s): Z87.828 - Personal history of other (healed) physical injury and trauma Category: Medical (4) Other enthesopathy of right foot and ankle: Code(s): M77.51 - Other enthesopathy of right foot and ankle Category: Medical (5) Other enthesopathy of left foot and ankle: Code(s): M77.52 - Other enthesopathy of left foot and ankle Category: Medical Plan Patient was informed and verbally consented to the use of an ambient scribe for clinic note documentation during this visit. I discussed with the patient the current management of her Bilateral ankle pain, emphasizing the importance of using the brace and medication as needed. We also talked about the potential for physical therapy if her symptoms do not improve. Additionally, we reviewed the impact of her weight on her ankle pain and the need to consult her primary care provider for weight management options. - Continue using the ankle braces for support and pain relief. - Take meloxicam as needed for pain. - Consider physical therapy if pain persists or worsens. - Discuss weight management strategies with primary care provider to alleviate ankle discomfort. - Avoid barefoot walking and wear supportive shoe gear. RTC PRN Coding Level of Care Code Est Pt Level 3 (95269) Diagnoses Chronic pain of both ankles M25.571; M25.572; G89.29 Chronicity: chronic Chronic instability of ankle M25.373 History of sprain of both ankles Z87.828 Other enthesopathy of right foot and ankle M77.51 Other enthesopathy of left foot and ankle M77.52 Time Spent (min) 20
== END 2025-08-21 08:50 | disposition home or self-care (01) ==
LOC: HO.HPODS 08:07
PROVIDERS: PCP Internal Medicine; Visit Provider Student in an Organized Health Care Education/Training Program
DX: M25.571 Pain in right ankle and joints of right foot (principal); M25.572 Pain in left ankle and joints of left foot; G89.29 Other chronic pain; M25.373 Other instability, unspecified ankle; Z87.828 Personal history of other (healed) physical injury and trauma; M77.51 Other enthesopathy of right foot and ankle; M77.52 Other enthesopathy of left foot and ankle
CPT/HCPCS: 99213